=== PATIENT | male | born 1955 | race Caucasian/White ===

== ENCOUNTER 2018-06-15 10:51 | Emergency (ER) | payer SELFPAY ==
[~2018-06-15] VITALS: Ht 172.7 cm; Wt 90.7 kg
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
[2018-06-15] MEDS ORDERED: NS IV 1000 ML 1,000 ML IV SCH (11:15)
[2018-06-15] MEDS ORDERED: LABETALOL HCL 20 MG/4 ML VIAL IV ONE (11:15)
[2018-06-15 11:20] LABS: BASOPHILS % (AUTO) 0 % (0-10); EOSINOPHILS % (AUTO) 0 % (0-10); HEMATOCRIT 53 % (40-54); HEMOGLOBIN 18.2 G/DL (13.3-17.7); LYMPHOCYTES # (AUTO) 0.9 X 10^3 (1.0-4.0); LYMPHOCYTES % (AUTO) 9 % (12-44); MEAN CORPUSCULAR HEMOGLOBIN 33 PG (25-34); MEAN CORPUSCULAR HGB CONC 34 G/DL (32-36); MEAN CORPUSCULAR VOLUME 97 FL (80-99); MONOCYTES # (AUTO) 0.8 X 10^3 (0.0-1.0); MONOCYTES % (AUTO) 8 % (0-12); NEUTROPHILS # (AUTO) 8.3 X 10^3 (1.8-7.8); NEUTROPHILS % (AUTO) 82 % (42-75); PLATELET COUNT 168 10^3/uL (130-400); RED CELL DISTRIBUTION WIDTH 13.7 % (10.0-14.5); WHITE BLOOD COUNT 10.2 10^3/uL (4.3-11.0)
[2018-06-15 11:39] LABS: INR 1.1 (0.8-1.4); PROTHROMBIN TIME PATIENT 13.9 SEC (12.2-14.7)
[2018-06-15] MEDS ORDERED: niCARdipine IV 50 MG in NS (IVPB) 230 ML IV SCH (11:45)
[2018-06-15 11:47] LABS: ALANINE AMINOTRANSFERASE 44 U/L (0-55); ALBUMIN 4.1 GM/DL (3.2-4.5); ALKALINE PHOSPHATASE 66 U/L (40-136); AMMONIA 29 UMOL/L (11-32); BILIRUBIN,TOTAL 0.8 MG/DL (0.1-1.0); BUN/CREATININE RATIO 13; CALCIUM 9.1 MG/DL (8.5-10.1); CARBON DIOXIDE 24 MMOL/L (21-32); CHLORIDE 99 MMOL/L (98-107); CREATININE SERUM 0.72 MG/DL (0.60-1.30); GFR ESTIMATED > 60; GLUCOSE 142 MG/DL (70-105); POTASSIUM 3.9 MMOL/L (3.6-5.0); SALICYLATE < 5.0 MG/DL (5.0-20.0); SODIUM 136 MMOL/L (135-145); TOTAL PROTEIN 7.2 GM/DL (6.4-8.2)
[2018-06-15 11:48] LABS: ACETAMINOPHEN < 10 UG/ML (10-30)
--- NOTE | 2018-06-15 11:52 | Diagnostic Imaging Report ---
Clinical indication: Patient with altered mental status. Exam: Axial CT scan of brain performed without IV contrast. Comparison: None. FINDINGS: There is a 4.2 cm x 3.2 cm in AP and transverse dimension area of intraparenchymal hemorrhage within the right cerebellum with small amount of adjacent parenchymal edema. There is extension of hyperdense blood within the fourth ventricle, third ventricle, and into the bilateral lateral ventricles (right side more than the left) . There is mild crowding of the foramen magnum and slightly low-lying cerebellar tonsils. There is mild prominence of the lateral ventricles with minimal prominence of the temporal horns which may represent early mild hydrocephalus. There is no other areas of intraparenchymal hemorrhage. The remainder the brain parenchyma is unremarkable. Extra cranial soft tissue, skull, and orbits are unremarkable. There is moderate amount of mucosal thickening and fluid in the sphenoid sinus. IMPRESSION: 1: There is a 4.2 cm x 3.2 cm right cerebellar intraparenchymal hemorrhage with small amount of adjacent parenchymal edema. There is associated crowding of the foramen of Fay with mild tonsillar herniation. MRI of the brain with and without IV contrast, once patient is stable, may help better evaluate for possible etiology of this finding and exclude an underlying mass. 2: There is a moderate amount of intraventricular blood within the fourth ventricle, third ventricle, and lateral ventricles with concern for early mild hydrocephalus. This intraventricular blood is suspected to be extension from the right cerebellar intraparenchymal hemorrhage. Results of this report was discussed with James Bell APRN via the telephone on 06/15/2018 1140 hrs. Dictated by: Dictated on workstation # [id number]
--- NOTE | 2018-06-15 12:18 | Diagnostic Imaging Report ---
INDICATION: Altered mental status. EXAMINATION: Portable chest obtained at 11:33 a.m. and compared with 07/29/2009. FINDINGS: Heart is borderline in size. There is mild central vascular prominence. There are chronic-appearing increased interstitial markings with some degree of hyperinflation. There is no focal infiltrate, pneumothorax, or pleural fluid. There is an old right clavicle fracture which has healed. IMPRESSION: Borderline heart size with mild central vascular prominence and chronic-appearing increased interstitial markings. No acute pulmonary infiltrate or pleural fluid. Dictated by: Dictated on workstation # [id number]
[2018-06-15] MEDS ORDERED: LORazepam INJ 2 MG/ML (ATIVAN) VIAL IVP PRN (12:45)
[2018-06-15 12:49] VITALS: BP 158/109
--- OUTSIDE RECORDS SUMMARY | 2018-06-17 09:17 | XMS REPORT ---
Author Author NEHA ESTRADA [facility] Address [address] [place] [address] Care Team Providers Care Youth Leader Name Role Phone NEHA ESTRADA Unavailable PROBLEMS Unknown Problems ALLERGIES No Known Allergies ENCOUNTERS Encounter Location Date Diagnosis [facility] [address] [facility] [id number] [id number] Mar, Acute sinusitis J01.90 and Otitis media, left H66.92 IMMUNIZATIONS No Known Immunizations SOCIAL HISTORY Never Assessed REASON FOR VISIT cough/congestion- head cold started a least 10 days ago JStrasserRN PLAN OF CARE Activity Details Follow Up if not improving with PCP or reg follow up Reason: VITAL SIGNS Height 68.5 in 2018-04-02 Weight 205.0 lbs 2018-04-02 Temperature 98.8 degrees Fahrenheit 2018-04-02 Heart Rate 84 bpm 2018-04-02 Respiratory Rate 20 2018-04-02 BMI 30.71 kg/m2 2018-04-02 Blood pressure systolic 160 mmHg 2018-04-02 Blood pressure diastolic 108 mmHg 2018-04-02 MEDICATIONS Medication Instructions Dosage Frequency Start Date End Date Duration Status Amoxicillin 875 MG Orally every 12 hrs 1 tablet 12h Mar, 10 day (s) Active PredniSONE 20 MG Orally Once a day 2 tablet 24h Mar, 5 days Active RESULTS No Results PROCEDURES Procedure Date Ordered Result Body Site [facility] VISIT NEW PATIENT Apr 02, 2018 INSTRUCTIONS MEDICATIONS ADMINISTERED No Known Medications MEDICAL (GENERAL) HISTORY Type Description Date Surgical History No know Surgical history
== END 2018-06-15 12:49 | disposition short-term general hospital (02) ==
LOC: EDUNIT# 10:51 → ER 10:55
DX: I62.9 Nontraumatic intracranial hemorrhage, unspecified (principal); F17.200 Nicotine dependence, unspecified, uncomplicated; Z87.820 Personal history of traumatic brain injury
CPT/HCPCS: 36415; 70450; 71045; 80053; 80320; 80329; 82140; 85025; 85610; 85730; 93005

== ENCOUNTER 2018-12-05 12:30 | Outpatient (CLI) | payer OTHER ==
[~2018-12-05] VITALS: Ht 172.7 cm; Wt 81.6 kg
[2018-12-05] MEDS ORDERED: METO-370 PO (12:34)
[2018-12-05] MEDS ORDERED: HYDR-3923 PO (12:34)
== END 2018-12-05 13:23 | disposition home or self-care (01) ==
LOC: PREOP 12:30
PROVIDERS: ATTEND Surgery
DX: Z01.818 Encounter for other preprocedural examination (principal)

== ENCOUNTER 2018-12-10 10:39 | Day surgery (SDC) | payer OTHER ==
[~2018-12-10] VITALS: Ht 172.7 cm; Wt 81.6 kg
[2018-12-10] VITALS (10 sets, daily range): BP systolic 122–165; BP diastolic 63–105
[~2018-12-10 10:39] MED LIST: HYDR-3923 PO; LACTATED RINGERS 1,000 ML IV ONE; METO-370 PO
[2018-12-10] MEDS ORDERED: LACTATED RINGERS 1,000 ML IV STA (10:46)
[2018-12-10] MEDS ORDERED: PROPOFOL INJECTION 50 ML IV ONE (11:47)
--- NOTE | 2018-12-10 12:25 | Progress Note-Pre Operative ---
Pre-Operative Progress Note H&P Reviewed The H&P was reviewed, patient examined and no changes noted. Time Seen by Provider: 11:53 Date H&P Reviewed: Dec 10, 2018 Time H&P Reviewed: 11:54 Pre-Operative Diagnosis: Hemoccult + BAR COWAN DO Dec 10, 2018 12:25
--- NOTE | 2018-12-10 12:50 | NUR ---
INCREASED O2 TO 5L/NC, PT C/O ABDOMINAL PAIN- INSTRUCTED PT TO TAKE DEEP BREATHS & PASSING THE AIR THAT WAS PUT IN DURING THE PROCEDURE WILL HELP WITH ABDOMEN DISCOMFORT.
--- NOTE | 2018-12-10 12:54 | Anesthesia-General Post-Op ---
MAC Patient Condition Mental Status/LOC: Same as Preop Cardiovascular: Satisfactory Nausea/Vomiting: Absent Respiratory: Satisfactory Pain: Controlled Complications: Absent Post Op Complications Complications None Follow Up Care/Instructions Patient Instructions None needed. Anesthesiology Discharge Order Discharge Order Patient is doing well, no complaints, stable vital signs, no apparent adverse anesthesia problems. No complications reported per nursing. ARMANI MCCLELLAN CRNA Dec 10, 2018 12:54
--- NOTE | 2018-12-10 13:13 | Progress Note-Post Operative ---
Post-Operative Progess Note Surgeon (s)/Security Intern (s) Surgeon BAR COWAN DO Security Intern: none Pre-Operative Diagnosis Hemoccult + Post-Operative Diagnosis Colon polyps diverticula internal hemorrhoids External karen-rectal masses Procedure & Operative Findings Date of Procedure 12/10/18 Procedure Performed/Findings Colon with snare Anesthesia Type IV sedation by RENT AND MISCELLANEOUS REMITTANCE CLERK Estimated Blood Loss Estimated blood loss (mL): scant Specimens/Packing Specimens Removed transverse colon mass\ Descending colon mass BAR COWAN DO Dec 10, 2018 13:13
--- NOTE | 2018-12-10 13:14 | Endoscopy Discharge Instruct ---
Endo Procedure/Findings Findings 1.: Polyp 2.: Diverticulosis 3.: Internal Hemorrhoids Discharge Instructions - Activity: You might feel a little sleepy until tomorrow. This is due to the medicine you received to relax you. Until tomorrow, you should: NOT drive a car, operate machinery or power tools. NOT drink any alcoholic beverages. NOT make any important decisions or sign importortant papers. Do not return to work until tomorrow, unless otherwise instructed. Resume previous activities tomorrow. Diet: Start by taking liquids. If you tolerate liquids, advance to solid food. make an appointment for one week Instructions: 1.: Colonoscopy in 1 year Notify Physician - If you experience excessive bleeding, unusual abdominal pain, fever, or chest pain, contact your doctor immediately. Follow-Up: - I have received and understand the above instructions and will call my doctor if I have any further questions. Patient Signature Date Nurse Signature Other (Relationship) BAR COWAN DO Dec 10, 2018 13:14
--- NOTE | 2018-12-10 13:15 | NUR ---
ANESTHESIA ([facility] [employer]ERS) NOTIFIED OF PT C/O CHEST PAIN, 12-LEAD EKG OBTAINED & BREATHING TX ORDERED.
[2018-12-10] MEDS ORDERED: RT-ALBUTEROL/IPRATROPIUM 3 ML (DUONEB) VIAL INH ONE (13:30)
[2018-12-10] MEDS ORDERED: RT-ALBUTEROL SULF 2.5 MG/3 ML PRE-MIX VIAL ONE (13:31)
--- NOTE | 2018-12-10 13:45 | NUR ---
PT HAS NOW HAD BREATHING TX COMPLETED, PT VERBALIZED PAIN HAS GONE AWAY- CURRENTLY RATING PAIN 0/10, WILL CONTINUE TO MONITOR.
--- NOTE | 2018-12-10 14:00 | NUR ---
PT DENIES ANY PAIN AT THIS TIME, PT ABLE TO HOLD O2 SAT IN MID 90'S ON ROOM AIR, NO DISTRESS NOTED.
--- NOTE | 2018-12-10 18:26 | OPERATIVE REPORT ---
DATE OF SERVICE: 12/10/2018 PREOPERATIVE DIAGNOSIS: Hemoccult positive stool. POSTOPERATIVE DIAGNOSES: 1. Colon polyps. 2. Diverticula. 3. Internal hemorrhoids. 4. External perirectal masses. PROCEDURE PERFORMED: Colonoscopy with snare polypectomy. SURGEON: Rob Blount DO. EMPLOYMENT RECRUITER: None. ANESTHESIA: IV sedation by LEGAL SERVICES PROFESSIONAL. SPECIMEN: One polyp from the transverse colon and one polyp from the descending colon. BLOOD LOSS: Scant. FLUIDS: Per Anesthesia. POSTOPERATIVE CONDITION: Stable. INDICATION FOR PROCEDURE: The patient is a 63-year-old male who had a Hemoccult positive stool test and needed a workup. FINDINGS: The patient had two very large perirectal external masses. He also noted diverticula and then 2 very large polyps, one of them taken in multiple pieces to remove it. PROCEDURE NOTE: After informed consent was obtained, the patient was brought to the endoscopy suite and placed in the left lateral decubitus position. He was administered IV sedation by the LEGAL SERVICES PROFESSIONAL who then monitored his vitals the entire time, heart rate, blood pressure and pulse ox and the scope was inserted. On the way in, noted a polyp in the descending colon, took a picture of this and then a snare polypectomy hot and suctioned the polyp up to the scope and then had to pull the scope all the way out to remove the polyp, then inserted the scope again and on the way, noted diverticula, took a picture of this, able to push all the way to 150 cm, able to get to the cecum, took a picture of appendiceal orifice and then able to actually get into the terminal ileum, took a picture of this and then slowly withdrew the scope insufflating to look circumferentially at the rodriguez, looking the cecum, up the ascending colon to the hepatic flexure and then down the transverse colon and in the transverse colon just before the splenic flexure, saw another large polyp, did a snare polypectomy, had to do this in multiple bites to remove all of the polyp, able to suction most of them up, but then the large piece was unable to suction up, I tried to suction this up to the scope, pulled this all the way out of the colon and removed this and then placed the scope back into the colon going all the way to our biopsy sites and then slowly withdrawing the scope down the splenic flexure, into the descending colon, saw the previous biopsy site, continued down the descending colon into the sigmoid and then down into the rectum, retroflexed the rectal vault, saw some minimal internal hemorrhoids. Pulled the scope out, took a picture of the external perirectal masses. The patient tolerated the procedure. He was recovered in endoscopy suite. Job ID: [id number] DocumentID: [id number] Dictated Date: 12/10/2018 15:40:02 Warehouse Order Filler Date: 12/10/2018 18:24:32 Dictated By: ROB BLOUNT DO
== END 2018-12-10 14:20 | disposition home or self-care (01) ==
LOC: ENDO 10:39
PROVIDERS: ATTEND Surgery
DX: D12.4 Benign neoplasm of descending colon (principal); D12.3 Benign neoplasm of transverse colon; K63.89 Other specified diseases of intestine; K57.30 Diverticulosis of large intestine without perforation or abscess without bleeding; K64.8 Other hemorrhoids; K21.9 Gastro-esophageal reflux disease without esophagitis; I10 Essential (primary) hypertension; J44.9 Chronic obstructive pulmonary disease, unspecified; I63.9 Cerebral infarction, unspecified; Z80.9 Family history of malignant neoplasm, unspecified; Z84.1 Family history of disorders of kidney and ureter
CPT/HCPCS: 94640

== ENCOUNTER → 2018-12-25 | Outpatient (CLI) | payer OTHER, MEDICARE ==
[~2018-12-25] MED LIST changes: +HOLD METFORMIN - RECEIVED CONTRAST 20 ML VIAL IV SCH; +IOHEXOL 350 MG/ML 100 ML (OMNIPAQUE 350) VIAL IV ONE; -LACTATED RINGERS 1,000 ML IV ONE; +NS 100 ML (IVPB) BAG IV ONE
[2018-12-25 11:44] LABS: BUN/CREATININE RATIO 19; CREATINE KINASE 31 U/L (30-200); CREATININE SERUM 0.62 MG/DL (0.60-1.30); GFR ESTIMATED > 60
--- NOTE | 2018-12-25 13:38 | Diagnostic Imaging Report ---
PROCEDURE: CT angiography of the head with and without contrast. TECHNIQUE: Noncontrast CT of the head was obtained. Subsequently, after intravenous administration of contrast, thin section axial CT angiography of the head was performed. Source data was reformatted into multiple MIP reformats. Delayed postcontrast acquisition of the head was also acquired. Auto Exposure Controls were utilized during the CT exam to meet ALARA standards for radiation dose reduction. INDICATION: Prior history of intracranial hemorrhage with difficulty walking and talking. COMPARISON: Correlation is made with noncontrast CT brain from 06/15/2018. No prior MRI study is available for comparison. FINDINGS: Postsurgical changes at the skull base are noted. There has been performance of an occipital craniectomy. High density at the right aspect of the skull base is noted which could be post-therapeutic from prior embolization. There is some encephalomalacia in the right cerebellar hemisphere from prior insult. Previously noted right cerebellar and intraventricular acute hemorrhage noted on CT from June has resolved. There has been decompression of the ventricular system since prior study consistent with improving hydrocephalus. No mass effect or midline shift is detected. No new region of hemorrhage is seen. No enhancing lesion on the delayed postcontrast images is identified. CT angiographic portion of the exam demonstrates calcified plaque in the carotid siphons bilaterally. The anterior, middle and posterior cerebral arteries are widely patent and without evidence of filling defect. Basilar artery is patent. The visualized distal right vertebral artery is very small with the left vertebral artery dominant. No aneurysm is identified. No intracranial stenosis or vascular malformation is seen. IMPRESSION: Postsurgical and post therapeutic changes at the skull base. Previously noted intraparenchymal and intraventricular hemorrhage has resolved. Hydrocephalus has resolved. No acute intracranial hemorrhage is seen. CT angiographic portion of the exam is unremarkable. Dictated by: Dictated on workstation # [id number]
== END ==
LOC: RAD 11:06
PROVIDERS: ATTEND Internal Medicine Addiction Medicine
DX: I77.0 Arteriovenous fistula, acquired (principal); I62.9 Nontraumatic intracranial hemorrhage, unspecified; Z98.890 Other specified postprocedural states
CPT/HCPCS: 36415; 70496; 82550; 82565; 84520

== ENCOUNTER → 2018-12-25 | Outpatient (CLI) | payer OTHER, MEDICARE ==
[~2018-12-25] MED LIST changes: -HOLD METFORMIN - RECEIVED CONTRAST 20 ML VIAL IV SCH; -IOHEXOL 350 MG/ML 100 ML (OMNIPAQUE 350) VIAL IV ONE; -NS 100 ML (IVPB) BAG IV ONE
== END ==
LOC: LAB 11:12
PROVIDERS: ATTEND Psychiatry & Neurology Neurology
DX: I62.9 Nontraumatic intracranial hemorrhage, unspecified (principal)

== ENCOUNTER 2019-01-21 09:04 | Inpatient (IN) | payer MEDICARE, OTHER ==
[~2019-01-21] VITALS: Ht 172.7 cm; Wt 88.9 kg
[2019-01-21 09:00] VITALS: BP 129/83
--- NOTE | 2019-01-21 09:00 | NUR ---
Admitted to room 224-1, with an admitting diagnosis of debility, on 01/21/19 from home via , accompanied by sister].NIGEL IQBAL introduced to surroundings, call light, bed controls, phone, TV, temperature control, lights, meal times, smoking policy, visitor policy, side rail policy, bathrooms and showers. Patient Rights given to patient in the handbook.NIGEL IQBAL verbalizes understanding that [facility] is not responsible for the loss or damage to any personal effects or valuables that are kept in the patients posession during their hospitalization. The following Patient Care Plans were discussed with the : Discharge Planning, ,, and . NIGEL IQBAL verbalizes understanding of Interdisciplinary Patient Education. Patient and/or family were informed about the Rapid Response Team and its purpose. Patient received Patient Rights Booklet, which includes Privacy Act Statement and Data Collection Information Summary.
--- NOTE | 2019-01-21 10:20 | PM&R H&P / Post Admit Assess ---
History of Present Illness HPI/Chief Complaint CC: Debility following intracerebral hemorrhage of cerebellum HPI: This is a 63yoWM clinic patient of [facility] Dr Patiño who presents to IRF at the request of his neurologist following a lengthy 7 month course following a HTN source of cerebellar hemorrhage which required surgical intervention after transferred from [facility] then to [facility] then required ICU monitoring and PEG and trach then transferred to [facility] on 07/23/18 and had a lengthy stay and then was admitted to [facility] for slow recovery and ultimately DC home with sister and now ready to participate in therapies in order to regain lost functioning. Patient has a h/o ETOH abuse and tobacco use b oth of which have ceased now since illness. Source: patient, family, RN/MD, old records Exam Limitations: no limitations Date Seen 01/21/19 Time Seen by a Provider: 10:20 Attending Physician Carline Lopez Michael G MD Referring Physician Date of Admission Jan 21, 2019 at 09:06 Home Medications & Allergies Home Medications Reviewed patient Home Medication Reconciliation performed by pharmacy medication reconciliations wiring technician and/or nursing. Patients Allergies have been reviewed. Allergies Allergies Coded Allergies No Known Drug Allergies (Verified12/10/18) Past Vfizvjb-Ritxqm-Ewllgz Hx Past Med/Social Hx: Reviewed Nursing Past Med/Soc Hx, Reviewed and Corrections made Patient Social History Marrital Status: single Employed/Student: retired Alcohol Use: Past History Alcohol Beverage of Choice: Beer Smoking Status: Former Smoker Former Smoker, Quit: Jun 15, 2018 2nd Hand Smoke Exposure: No Recent Hopitalizations: Yes (06/15/18-10/09/18 STROKE) Seasonal Allergies Seasonal Allergies: No Past Medical History Surgeries: Brain Shunt Respiratory: COPD Cardiac: Hypertension Neurological: Stroke Sexually Transmitted Disease: No HIV/AIDS: No Gastrointestinal: Gastroesophageal Reflux, Chronic Diarrhea Loss of Vision: Denies Hearing Impairment: Denies History of Blood Disorders: No Adverse Reaction to Blood Paul: No (N/A) Review of Systems Constitutional: see HPI, malaise, weakness EENTM: no symptoms reported Respiratory: no symptoms reported Cardiovascular: no symptoms reported Gastrointestinal: no symptoms reported Genitourinary: no symptoms reported Musculoskeletal: back pain, joint pain Skin: no symptoms reported Psychiatric/Neurological: Anxiety, Depressed, Emotional Problems, Numbness, Weakness All Other Systems Reviewed Negative Unless Noted: Yes Physical Exam Exam Vital Signs Vital Signs Date Time Temp Pulse Resp B/P (MAP) Pulse Ox O2 Delivery O2 Flow Rate FiO2 01/21/19 17:37 36.6 80 18 145/86 (105) 97 Room Air 0.00 0.00 Capillary Refill : General Appearance: No Apparent Distress, WD/WN, Chronically ill HEENT: PERRL/EOMI, Normal ENT Inspection, Pharynx Normal, Moist Mucous Membranes Neck: Full Range of Motion, Normal Inspection, Non Tender, Supple Respiratory: Chest Non Tender, Lungs Clear, Normal Breath Sounds, No Accessory Muscle Use, No Respiratory Distress Cardiovascular: Regular Rate, Rhythm, No Edema, No Gallop, No JVD, No Murmur Gastrointestinal: Normal Bowel Sounds, No Organomegaly, No Pulsatile Mass, Non Tender, Soft Back: Normal Inspection, No CVA Tenderness, No Vertebral Tenderness Extremity: Normal Capillary Refill, Normal Inspection, Normal Range of Motion, Non Tender, No Calf Tenderness, No Pedal Edema Neurologic/Psychiatric: Alert, Oriented x3, No Motor/Sensory Deficits, Normal Mood/Affect, Motor Weakness (right sided upper and lower) Skin: Normal Color, Warm/Dry Lymphatic: No Adenopathy Results Results/Procedures Labs Patient resulted labs reviewed. Assessment/Plan Assessment and Plan Assess & Plan/Chief Complaint Assessment: ICH cerebellar 07/03 Right sided weakness Former smoker ETOHism hx Plan: Monitor BP Home meds PT/OT Monitor bowel function (1) Intracranial hemorrhage Status: Chronic (2) Hypertension Status: Chronic Qualifiers: Hypertension type: essential hypertension Qualified Codes: I10 - Essential (primary) hypertension (3) History of alcohol abuse Status: Chronic (4) Former smoker Status: Chronic (5) GERD (gastroesophageal reflux disease) Status: Chronic Qualifiers: Esophagitis presence: without esophagitis Qualified Codes: K21.9 - Gastro- esophageal reflux disease without esophagitis Post Admission Physician Asses Date seen by provider: Jan 21, 2019 Time seen by provider: 10:20 Admisison Dx: (1) Intracranial hemorrhage Status: Chronic The preadmission screen agrees with the post admission assessment that the patient is a good candidate for inpatient rehabilitation. The patient will have a comprehensive program of inpatient rehabilitation with a goal of maximizing level of functional independence prior to discharge home with sister. The patient will have PT/OT ninety minutes per day, each discipline, five days a week for gait, strengthening, conditioning, balance, ADLs, any patient/family/caregiver training as necessary. Speech therapy to do cognitive assessment and treat as indicated. Rehabilitation nursing to assist with bowel, bladder, skin, wound care, medication administration, pain management. Language Pathologist to assist with discharge planning, community reentry. SCD's for DVT prophylaxis. He appears to be well motivated to participate in three hours of therapy a day. He should be able to tolerate three hours of therapy a day from a medical standpoint. He should benefit from the three hours of therapy a day. He has a reasonable discharge plan, reasonable discharge rehabilitation goals and a supportive family. He has various comorbidities that need to be closely monitored with medications and treatments adjusted on a daily basis as needed. These include:s see list Barriers to discharge for this patient who had been independent prior to this are for him to be modified independent to supervision for ADLs and mobility skills prior to discharge home with sister, so as to lessen the burden of the caregivers. Risks for this patient include: 1. Fall 2. Fracture 3. DVT 4. Pulmonary embolism 5. Wound infection 6. Skin breakdown 7. Contractures 8. Poorly controlled pain 9. Urinary retention 10. UTI 11. Respiratory infection 12. Aspiration Estimated Length of Stay: 7 days Prognosis: Rehab prognosis appears good for goal of discharge home with sister modified independent to supervision for ADLs and mobility skills. CARLINE LOPEZ DO Jan 21, 2019 10:20
[2019-01-21] MEDS ORDERED: IBUP-30 PO (11:01)
[2019-01-21] MEDS ORDERED: AMLO10TA7 PO (11:01)
--- NOTE | 2019-01-21 11:04 | NUR ---
PATIENT HAD HIS BOTTLES IN THE ROOM, HE STATES HE ONLY TAKES THOSE THREE PRESCRIPTIONS AND OTC IBU 2 TABS NEEDED. BOTTLES HE HAD: [facility]: 12-28-18 METOPROLOL ER 50MG 1/2 DAILY #45 09-28-18 HYDRALAZINE HCL 25MG Q6H #360 [facility]: 12-14-18 AMLODIPINE 10MG 1/2 DAILY #90
--- NOTE | 2019-01-21 11:49 | Physical Therapy Evaluation ---
PT Evaluation-General Medical Diagnosis Admission Date Jan 21, 2019 at 09:06 Medical Diagnosis: Cerebellar hemorrhage Onset Date: Jun 17, 2018 Therapy Diagnosis Therapy Diagnosis: impaired mobility, strength, balance, endurance Height/Weight Height (Feet): 5 Height (Inches): 8.00 Weight (Pounds): 180 Weight (Ounces): 0.0 Referral Physician: Carline Lopez DO Reason for Referral: Evaluation/Treatment Medical History Additional Medical History Past Medical History Cardiac: Hypertension Neurological: Stroke Sexually Transmitted Disease: No HIV/AIDS: No Gastrointestinal: Gastroesophageal Reflux, Chronic Diarrhea Loss of Vision: Denies Hearing Impairment: Denies History of Blood Disorders: No Adverse Reaction to Blood Paul: No (N/A) Reviewed History: Yes Social History Home: Single Level Current Living Status: sister lives with him Entry Into Home: Ramp Prior Prior Level of Function Therapy Quality Codes: 6 Independent with activity with or without an assistive device 5 Patient requires set up or clean up by helper. Patient completes activity by themselves 4 Supervision or touching assist (CGA). [place] provide cues , steadying assist 3 The helper provides less than half the effort to complete the activity 2 The helper provides more than half the effort to complete the activity 1 Dependent. The helper does all the effort to complete an activity 7 Patient refused to complete or attempt activity 9 The patient did not perform the activity before the current illness or injury 88 Not attempted due to Medical conditions or safety concerns Bed Mobility: 7 Transfers (B,C,W/C): 7 Gait: 7 Stairs: 7 Indoor Mobility (Ambulation): Independent Stairs: Independent PT Evaluation-Current Subjective Patient in WC pre tx, agrees to PT, has no complaints of pain. Pt/Family Goals "to work on my coordination" Objective Patient Orientation: Person, Confused, Place, Situation ROM/Strength ROM Lower Extremities WNL Strength Lower Extremities LLE 5/5 gross, RLE 4+/5 gross Neuromuscular (Tone, Coordination, Reflexes) intact peripheral vision bilaterally, trouble tracking on both sides Sensory Vision: Hearing: Functional Sensation Right Lower Extremit: Intact Sensation Left Lower Extremity: Intact Sensation Lower Extremities patient has intact light touch sensation in both lower extremities Transfers Roll Left to Right (QC): 6 Sit to Lying (QC): 6 Lying to Sitting/Side of Bed(Q: 6 Sit to Stand (QC): 4 Chair/Yjo-wf-Bxlkz Xfer(QC): 4 Car Transfer (QC): 4 Patient performs bed mobility with mod I, supine <-> sit with mod I, sit <-> stand with CGA, transfers with CGA, car transfer CGA. Patient needs cues for hand placement and positioning and safety. Will often pull on walker to stand and not reach back when sitting. Gait Does the Patient Walk?: Yes Mode of Locomotion: Walk Anticipated Mode of Locomotion: Walk Walk 10 feet (QC): 4 Walk 50 ft with 2 Turns(QC): 4 Walk 150 ft (QC): 4 Walking 10ft/uneven surface-QC: 4 Distance: 150'x2 Gait Persons Needed: 1 Gait Assistive Device: FWW Comments/Gait Description Patient can ambulate 150' with a rolling walker with CGA (including 50' with at least 2 turns of 90 degrees and 10' over an uneven surface). Patient ambulates slowly, uncoordinated steps especially with right side. Wheelchair Training Does the Pt Use a Wheelchair?: Yes Distance: 150' Wheel 50 ft with 2 turns (QC): 6 Wheel 150 ft (QC): 6 Type of Wheelchair: Manual Patient can propel a manual wheelchair 150' with mod I. Stairs #of Steps: 4 1 Step (curb) (QC): 4 4 Steps (QC): 4 Patient can go up and down 4 steps using 2 handrails with CGA. Patient needs cues for safety, is uncoordinated and needs directions for foot placement. Balance Sitting Static: Normal Sitting Dynamic: Normal Standing Static: Fair Standing Dynamic: Poor Picking up an Object (QC): 4 (CGA) Assessment/Needs Patient has impaired mobility, strength, endurance, balance. Patient is slightly impulsive but will follow directions. Patient in WC post tx, wants to wheel around rehab. Patient instructed to call staff if he needs to get out of the wheelchair and he agrees. Nurse notified. Rehab Potential: Fair PT Short Term Goals Short Term Goals Time Frame: Jan 28, 2019 Gait Distance Comment: 200' Gait Assistive Device: FWW (SBA) Additional Short Term Goals transfers, SBA PT Fdc Goals Fdc Goals PT Change Management Facilitator Goals Time Frame: Feb 11, 2019 Sit to Lying (QC): 6 Lying-Sitting on Side/Bed(QC): 6 Sit to Stand (QC): 6 Roll Left to Right (QC): 6 Chair/Ses-ci-Ysdcx Xfer(QC): 6 Car Transfer (QC): 6 Distance: 300' Walk 10 feet (QC): 6 Walk 10ft-Uneven Surface(QC): 6 Walk 50ft with 2 Turns (QC): 6 Walk 150 ft (QC): 6 Gait Assistive Device: FWW # of Steps: 12 (SBA) 1 Step (curb) (QC): 4 4 Steps (QC): 4 12 Steps (QC): 4 Picking up an Object (QC): 4 (SBA) PT Plan Problem List Problem List: Activity Tolerance, Functional Strength, Safety, Balance, Gait, Transfer Treatment/Plan Treatment Plan: Continue Plan of Care Treatment Plan: Education, Functional Activity Omar, Functional Strength, Group Therapy, Gait, Safety, Therapeutic Exercise, Transfers Treatment Duration: Feb 11, 2019 Frequency: At least 5 of 7 days/Wk (IRF) Estimated Hrs Per Day: 1.5 hours per day Patient and/or Family Agrees t: Yes Safety Risks/Education Patient Education: Gait Training, Transfer Techniques, Steps, Correct Positioning, W/C Management, Safety Issues Teaching Recipient: Patient Teaching Methods: Demonstration, Discussion Response to Teaching: Reinforcement Needed Discharge Recommendations Plan Patient will perform bed mobility and transfer training, balance and endurance training, functional strengthening, stair training, gait training, and education, to improve functional mobility and independence at home. Therapy Discharge Recommendati: Other, See Comments (home with family) Time/GCodes Time In: 1100 Time Out: 1145 Total Billed Treatment Time: 45 Total Billed Treatment 1 visit EVM 30' GT 15' TERESE WALSH PT Jan 21, 2019 11:49
[2019-01-21] MEDS ORDERED: NON-FORMULARY MEDICATION 1 EA EA (Hydralazine HCl 25 MG) PO SCH (14:00)
[2019-01-21] MEDS ORDERED: NON-FORMULARY MEDICATION 1 EA EA (Ibuprofen (Advil) 400 MG) PO PRN (14:00)
[2019-01-21] MEDS ORDERED: IBUPROFEN TABLET 200 MG TAB PO PRN (14:15)
--- NOTE | 2019-01-21 14:35 | Occupational Ther Daily Note ---
OT Current Status-Daily Note Subjective Pt alert, sitting in w/c. Pt agrees to therapy. No c/o pain at this time. Pt wants to discuss if he will be able to walk by himself, no AE. PT talks pt through issues of walking by self and how beneficial AE is for safety and mobility. Mental Status/Objective Patient Orientation: Person, Place, Time, Situation ADL-Treatment Therapy Code Descriptions/Definitions Functional [place] Measure: 0=Not Assessed/NA 4=Minimal Assistance 1=Total Assistance 5=Supervision or Setup 2=Maximal Assistance 6=Modified [place] 3=Moderate Assistance 7=Complete IndependenceSCALE: Activities may be completed with or without assistive devices. 2-Hrtlwodzmv-xkvvpes completes the activity by him/herself with no assistance from a helper. 5-Set-up or Clean-up Assistance-helper sets up or cleans up; patient completes activity. [place] assists only prior to or following the activity. 4-Supervision or Touching Assistance-helper provides verbal cues and/or touching/steadying and/or contact guard assistance as patient completes activity. Assistance may be provided throughout the activity or intermittently. 3-Partial/Moderate Assistance-helper does LESS THAN HALF the effort. [place] lifts, holds or supports trunk or limbs, but provides less than half the effort. 2-Substantial/Maximal Assistance-helper does MORE THAN HALF the effort. [place] lifts or holds trunk or limbs and provides more than half the effort. 8-Lhyprheli-agarcq does ALL the effort. Patient does none of the effort to complete the activity. Or, the assistance of 2 or more helpers is required for the patient to complete the activity. If activity was not attempted, code reason: 7-Patient Refused. 9-Not Applicable-not attempted and the patient did not perform the activity before the current illness, exacerbation or injury. 10-Not Attempted due to Environmental Limitations-(lack of equipment, weather restraints, etc.). 88-Not Attempted due to Medical Conditions or Safety Concerns. Other Treatment Co-treat with PT for skilled instruction, decreased mobility and decreased dynamic standing balance during functional tasks. PT working on standing during functional tasks to decreased LOB in variety of situations, ambulation, w/c mobility and LE strengthening. OT working on functional tasks while standing, increasing dexterity/coordination and strength of L/R UEs and decrease LOB during functional tasks. Pt able to demonstrate ability to thread LE's through loop of theraband then stand to hike theraband over hips. Pt required verbal cues for w/c safety, lock brakes and pushing/reaching in sit to stand. Pt demonstrated slight LOB during standing functional tasks requiring CGA to min A for correction. Pt able to maneuver w/c throughout ARU. When ambulating pt postures due to weakness of R side and visual perceptual issues. Noted that pt has decreased strength and dexterity/coordination with R hand during functional tasks. After therapy, pt sitting in w/c with call light/phone in reach. Therapist reiterated to pt to call for assistance with transfers or if wanting to stand. All needs met in room. OT Short Term Goals Short Term Goals 1=Demonstrate adherence to instructed precautions during ADL tasks. 2=Patient will verbalize/demonstrate understanding of assistive devices/modifications for ADL. 3=Patient will improve strength/tolerance for activity to enable patient to perform ADL's. OT Global Implementation Manager Goals Mcfp Goals 1=Demonstrate adherence to instructed precautions during ADL tasks. 2=Patient will verbalize/demonstrate understanding of assistive devices/modifications for ADL. 3=Patient will improve strength/tolerance for activity to enable patient to perform ADL's. OT Education/Plan Problem List/Assessment Assessment: Decreased Activ Tolerance, Decreased Safety Aware, Decreased UE Strength, Impaired Coordination, Impaired Funct Balance, Impaired Self-Care Skills, Restricted Funct UE ROM, Visual-Perceptual Deficit Discharge Recommendations Plan/Recommendations: Continue POC Treatment Plan/Plan of Care Patient would benefit from OT for education, treatment and training to promote independence in ADL's, mobility, safety and/or upper extremity function for ADL's. Treatment Duration: Feb 11, 2019 Frequency: At least 5 of 7 days/Wk (IRF) Estimated Hrs Per Day: 1.5 hours per day Agreement: Yes Rehab Potential: Fair Time/GCodes Start Time: 13:30 Stop Time: 14:25 Total Time Billed (hr/min): 55 Billed Treatment Time 1 visit-FA 3 (38 min) EX 1 (17 min) cotreat with PT 55 min LUPE COSBY Jan 21, 2019 14:35
--- NOTE | 2019-01-21 14:40 | Physical Therapy Daily Note ---
PT Daily Note-Current Subjective Agrees to PT. Talks that he hopes/wants to walk without an AD. However, in discussion also acknowledges that it may not be realistic to expect to walk without an AD. Transfers SCALE: Activities may be completed with or without assistive devices. 0-Ludgdbdjee-koefags completes the activity by him/herself with no assistance from a helper. 5-Set-up or Clean-up Assistance-helper sets up or cleans up; patient completes activity. [place] assists only prior to or following the activity. 4-Supervision or Touching Assistance-helper provides verbal cues and/or touching/steadying and/or contact guard assistance as patient completes activity. Assistance may be provided throughout the activity or intermittently. 3-Partial/Moderate Assistance-helper does LESS THAN HALF the effort. [place] lifts, holds or supports trunk or limbs, but provides less than half the effort. 2-Substantial/Maximal Assistance-helper does MORE THAN HALF the effort. [place] lifts or holds trunk or limbs and provides more than half the effort. 9-Nvbpcvpcv-ttegyz does ALL the effort. Patient does none of the effort to complete the activity. Or, the assistance of 2 or more helpers is required for the patient to complete the activity. If activity was not attempted, code reason: 7-Patient Refused. 9-Not Applicable-not attempted and the patient did not perform the activity before the current illness, exacerbation or injury. 10-Not Attempted due to Environmental Limitations-(lack of equipment, weather restraints, etc.). 88-Not Attempted due to Medical Conditions or Safety Concerns. Treatments Co treat with OT due to the need for 2 skilled clinicians to complete the tasks. Focused on functional standing static and dynamic balance as OT addressed UE coordination, use and placement. In standing, PT addressed G[place], foot position, awareness in space for safety and provided CGA for all as OT addressed function of the UE. Performed standing balance and UE work together to enhance the balance challenge, simulate ADL"s and promote multiple activities at once for heightened safety with mobility in his home. Also worked on functional gait with with FWW witH PT addresses step through gait, posture and safety as OT provided visual feedback and cues. Pt requires min-CGA with gait for safety. Pt in room in post treatment, instructed him to always use the call light to move from surface to surface. Assessment Current Status: Good Progress Pt is motivated. He did will with the challenging balance tasks and follows cues. He is motivated. He does tend to talk alot and needs cues to stay on task. PT Short Term Goals Short Term Goals Time Frame: Jan 28, 2019 Gait Distance Comment: 200' Gait Assistive Device: FWW (SBA) Wheelchair Distance: 150' PT Half-Way Goals Green Coffee Blender Goals PT Green Coffee Blender Goals Time Frame: Feb 11, 2019 Sit to Lying (QC): 6 Lying-Sitting on Side/Bed(QC): 6 Sit to Stand (QC): 6 Roll Left to Right (QC): 6 Chair/Oan-va-Fjcyp Xfer(QC): 6 Car Transfer (QC): 6 Distance: 300' Walk 10 feet (QC): 6 Walk 10ft-Uneven Surface(QC): 6 Walk 50ft with 2 Turns (QC): 6 Walk 150 ft (QC): 6 Gait Assistive Device: FWW # of Steps: 12 (SBA) 1 Step (curb) (QC): 4 4 Steps (QC): 4 12 Steps (QC): 4 Picking up an Object (QC): 4 (SBA) PT Plan Problem List Problem List: Activity Tolerance, Functional Strength, Safety, Balance, Gait, Transfer, Bed Mobility Treatment/Plan Treatment Plan: Continue Plan of Care Treatment Plan: Education, Functional Activity Omar, Functional Strength, Group Therapy, Gait, Safety, Therapeutic Exercise, Transfers Treatment Duration: Feb 11, 2019 Frequency: At least 5 of 7 days/Wk (IRF) Estimated Hrs Per Day: 1.5 hours per day Patient and/or Family Agrees t: Yes Safety Risks/Education Patient Education: Transfer Techniques, Reviewed Precautions, Safety Issues Teaching Recipient: Patient Teaching Methods: Demonstration, Discussion Response to Teaching: Return Demonstration, Reinforcement Needed Discharge Recommendations Therapy Discharge Recommendati: Post Acute PT Time/GCodes Time In: 1330 Time Out: 1425 Total Billed Treatment Time: 55 Total Billed Treatment visit NM 30 FA 25 LUPE VALENTE PT Jan 21, 2019 14:40
--- NOTE | 2019-01-21 14:47 | Occupational Therapy Eval ---
OT Evaluation-General/PLF Medical Diagnosis Admission Date Jan 21, 2019 at 09:06 Medical Diagnosis: Cerebellar hemorrhage Onset Date: Jun 17, 2018 Therapy Diagnosis Therapy Diagnosis: Decreased ADL skills Height/Weight Height (Feet): 5 Height (Inches): 8.00 Weight (Pounds): 180 Weight (Ounces): 0.0 Weight Bear Status Weight Bearing Restriction: Weight Bearing/Tolerated Referral Physician: Carline Lopez DO Referral Reason: Activity Tolerance, Self Care, Evaluation/Treatment, Strengthening/ROM Medical History Additional Medical History ETOH abuse Current History Pt. had cerebellar hemorrhage in June 2018. Underwent craniotomy with right frontal lobe drain secondary to hydropcephalus. Was in ICU for 5 weeks in [place]. Transferred to [facility] in [place] for 1 month. Then transferred to [facility] and rehab for 1 month. Discharged home after that. Reviewed History: Yes Social History Home: Single Level Current Living Status: sister lives with him Entry Into Home: Ramp ADL-Prior Level of Function SCALE: Activities may be completed with or without assistive devices. 6-Mcsdxlkecs-yeuqisg completes the activity by him/herself with no assistance from a helper. 5-Set-up or Clean-up Assistance-helper sets up or cleans up; patient completes activity. [place] assists only prior to or following the activity. 4-Supervision or Touching Assistance-helper provides verbal cues and/or touching/steadying and/or contact guard assistance as patient completes activity. Assistance may be provided throughout the activity or intermittently. 3-Partial/Moderate Assistance-helper does LESS THAN HALF the effort. [place] lifts, holds or supports trunk or limbs, but provides less than half the effort. 2-Substantial/Maximal Assistance-helper does MORE THAN HALF the effort. [place] lifts or holds trunk or limbs and provides more than half the effort. 7-Eiloohywd-qkmpcj does ALL the effort. Patient does none of the effort to complete the activity. Or, the assistance of 2 or more helpers is required for the patient to complete the activity. If activity was not attempted, code reason: 7-Patient Refused. 9-Not Applicable-not attempted and the patient did not perform the activity before the current illness, exacerbation or injury. 10-Not Attempted due to Environmental Limitations-(lack of equipment, weather restraints, etc.). 88-Not Attempted due to Medical Conditions or Safety Concerns. ADL PLOF Comments Since pt. discharged home, his sister lives with him occupational health coordinator and cares for him occupational health coordinator. [facility] 2 hours per day. Pt. and sister state that he can wash 90% of his body, but needs help in stance with balance and washing karen area. Pt. can dress self, except needs assist in stance to pull pants over hips. Pt went to Neuro-building maintenance superintendent, who recommended prism glasses, (currently being made), and intensive visual therapy. At this time, they were unable to get into vision therapy due to housing issues. Physician felt it would be best for pt. to have inpt. rehab. Self Care: Needed Some Help Functional Cognition: Needed Some Help DME/Equipment: Bath Chair, Shower DME/Equipment Comments Pt. has wheelchair, walker, and power chair. OT Current Status Subjective No pain reported. Appearance Pt. is up in wheelchair. Sister in room with him and assists with answering questions. Mental Status/Objective Patient Orientation: Person Pt. requires cues at times to stay on task. Current Hand Dominance: Left Upper Extremity ROM WFL. However, right UE is slower to raise. Upper Extremity Coordination Impaired right UE Upper Extremity Strength Right- 3/5 Left- 4/5 ADL-Treatment Eating (QC): 7 Oral Hygiene (QC): 7 Shower/Bathe Self (QC): 7 Upper Body Dressing (QC): 10 Lower Body Dressing (QC): 4 (Socks and shoes only) On/Off Footwear (QC): 4 Toileting Hygiene (QC): 7 Toilet Transfer (QC): 7 Pt. up in wheelchair. Already dressed for the day, as he had come from home. Declined ADLs at this time, but will complete in a.m. Pt. very verbal and often needs re-directed on topic. Sister in room and is able to give good information. Pt. stood with min assist from wheelchair, and stood approximately 2 minutes. No steps taken at this time. Noted decreased coordination in right hand. Spoke with pt. and sister in depth regarding pt's current and previous status. Pt. has had series of hospitalizations since original CVA. Pt. and sister would like pt. to become stronger, and to be able to balance in stance to complete ADL skills. Education OT Patient Education: Correct positioning, Disease process, Exercise program, Instructions to caregiver, Modified ADL techniques, Progress toward Goal/Update tx plan, Purpose of tx/functional activities, Reviewed precautions, Rehab process, Transfer techniques Teaching Recipient: Patient, Family Teaching Methods: Demonstration, Discussion Response to Teaching: Verbalize Understanding, Return Demonstration OT Short Term Goals Short Term Goals Time Frame: Jan 28, 2019 Eating(FIM): 5 Grooming(FIM): 4 Bathing(FIM): 4 Upper Body Dressing(FIM): 4 Lower Body Dressing(FIM): 5 Toileting(FIM): 4 Transfers (B,C,W/C) (FIM): 4 Toilet/Commode Transfer(FIM): 4 Shower Transfer(FIM): 3 Additional Short Term Goals: 1-Demonstrate ADL Tasks, 2-Verbalize Understanding, 3-ImproveStrength/Omar 1=Demonstrate adherence to instructed precautions during ADL tasks. 2=Patient will verbalize/demonstrate understanding of assistive devices/modifications for ADL. 3=Patient will improve strength/tolerance for activity to enable patient to p erform ADL's. OT Senior Care Goals Senior Care Goals Time Frame: Feb 11, 2019 Eating (QC): 6 Oral Hygiene (QC): 6 Shower/Bathe Self (QC): 5 Upper Body Dressing (QC): 5 Lower Body Dressing (QC): 5 On/Off Footwear (QC): 5 Toileting Hygiene (QC): 5 Toilet/Commode Transfer (QC): 5 Additional Goals: 1-Demonstrate ADL Tasks, 2-Verbalize Understanding, 3- ImproveStrength/Omar 1=Demonstrate adherence to instructed precautions during ADL tasks. 2=Patient will verbalize/demonstrate understanding of assistive devices/modifications for ADL. 3=Patient will improve strength/tolerance for activity to enable patient to perform ADL's. OT Education/Plan Problem List/Assessment Assessment: Decreased Activ Tolerance, Decreased Safety Aware, Decreased UE Strength, Dependent Transfers, Impaired Cognition, Impaired Coordination, Impaired Funct Balance, Impaired I ADL's, Impaired Self-Care Skills Discharge Recommendations Plan/Recommendations: Continue POC Therapy Discharge Recommendati: Scheduled Assistance, Post Acute OT Comment Equipment needs to be determined. Treatment Plan/Plan of Care Treatment,Training & Education: Yes Patient would benefit from OT for education, treatment and training to promote independence in ADL's, mobility, safety and/or upper extremity function for ADL's. Plan of Care: ADL Retraining, Functional Mobility, Group Exercise/Act as Ind, UE Funct Exercise/Act, UE Neuromus Re-Ed/Coord, Visual/Perceptual Retrain Treatment Duration: Feb 11, 2019 Frequency: At least 5 of 7 days/Wk (IRF) Estimated Hrs Per Day: 1.5 hours per day Agreement: Yes Rehab Potential: Fair Time/GCodes Start Time: 10:00 Stop Time: 11:00 Total Time Billed (hr/min): 60 Billed Treatment Time 1, EVM x 15minutes, FA x 45minutes ARMEN KOCH OT Jan 21, 2019 14:47
[2019-01-21] MEDS: hydrALAZINE (APRESOLINE) 25 MG TAB PO SCH ×2 (15:00→20:08)
--- NOTE | 2019-01-21 15:08 | ST Cognitive Linguistic Eval ---
Speech Evaluation-General Medical Diagnosis Cerebellar hemorrhage Onset Date: Jun 17, 2018 Therapy Diagnosis Therapy Diagnosis: Cognitive-communication Precautions Precautions: Fall, Aspiration Precautions/Isolations: Aspiration, Fall Prevention, Standard Precautions Referral Referring Physician: Dr. Lopez Reason for Referral: Evaluation/Treatment Medical History Pertinent Medical History: CVA CVA Current History Cerebellar hemorrhage Reviewed History: Yes Social History Home: Single Level Current Living Status: Other Family Speech PLF-Current Status Prior Level of Function Patient lives in his home with his sister. He is independent for many of his daily needs, however his sister assists as needed. Subjective Patient was pleasant and cooperative with the cognitive evaluation. Language Eval: Auditory Comprehends Simple Yes/No Ques: Functional Indent/Objects Multiple Reyes: Functional Ident/Pics in Multiple Reyes: Functional Follows 1-Step Commands: Functional Follows Complex Directions: Mild Follows General Conversations: Functional Language Eval: Verbal Language Completes Spontaneous Greeting: Functional Produces Auto, Serial Info: Functional Imitates Simple Words/Phrases: Functional Word Finding: Mild Requests Basic Needs: Functional States Basic Personal Info: Functional Expresses Complex Ideas: Mild Objective Cognitive Domain Attention: WNL Memory: WNL Problem Solving: Mild Executive Functions: Mild Visuospatial Skills: Moderate Composite Severity Rating: Mild Clock Drawing Severity Rating: Mild Objective Formal/Standardized Tests [facility] Status ([facility]) Results , within the Mild Neurocognitive Disorder level of function Oral Motor/Speech Production Mildly distorted with 75% intelligibility. Impression Patient is a pleasant 63 year old man who suffered a stroke in June 2018. The patient was given the UMS with results of in the MNCD level of function. The patient qualifies for skilled cognitive and speech therapy. Speech Patient Assess Expression of Ideas/Wants: Exhibits (3) Understanding Verbal Content: Usually Understands (3) Brief Interview-Mental Status: Yes Repetition of Three Words: Three (3) Temporal Orientation: Year: Correct (3) Temporal Orientation: Month: Accurate within 5 days(2) Temporal Orientation: Day: Correct (1) Recall : Wear to say "Sock": Yes,after cueing (1) Recall : Color: Yes, after cueing (1) Recall : Bed: No, could not recall (0) Memory/Recall Ability: Current season, Location of own room, Staff names and faces, That he or she is in a hsp/hsp unit Speech Short Term Goals Short Term Goals Short Term Goals 1) The patient will complete memory exercises related to his daily needs at 90% or greater given 10% or less in cues. 2) The patient will complete problem solving exercises related to his daily needs at 90% or greater given 10% or less in cues. 3) The patient will complete safety awareness exercises related to his daily needs at 90% or greater given 10% or less in cues. 4) The patient will complete speech intelligibility exercises for improved production at 90% or greater. Speech Fdc Goals Fdc Goals Patient will improve speech and cognitive levels for better communication within his living environment. Speech-Plan Patient/Family Goals Patient/Family Goals: The patient plans on returning to his home with his sister's assistance upon discharge from rehab. Treatment Plan Speech Therapy Treatment Plan: Continue Plan of Care Patient will receive skilled ST for cognitive and speech production. Treatment Duration: Feb 01, 2019 Frequency: 5 times per week Estimated Hrs Per Day: .5 hour per day Rehab Potential: Fair Barriers to Learning: Patient has cognitive and speech deficits from residual affects of his recent CVA Pt/Family Agrees to Plan: Yes Safety Risks/Education Teaching Recipient: Patient Teaching Methods: Discussion Response to Teaching: Verbalize Understanding Education Topics Provided: Safety within his room and communication of his wants/needs Time Speech Therapy Time In: 11:45 Speech Therapy Time Out: 12:00 Total Billed Time: 15 Billed Treatment Time 1, LULA Calles Jan 21, 2019 15:08
--- NOTE | 2019-01-21 15:22 | ST Dysphagia Evaluation ---
Speech Evaluation-General Medical Diagnosis Cerebellar hemorrhage Onset Date: Jun 17, 2018 Therapy Diagnosis Therapy Diagnosis: Oropharyngeal Dysphagia Precautions Precautions: Fall, Aspiration Precautions/Isolations: Aspiration, Fall Prevention, Standard Precautions Referral Referring Physician: Dr. Lopez Reason for Referral: Evaluation/Treatment Medical History Pertinent Medical History: CVA CVA Current History Cerebellar Hemorrhage Reviewed History: Yes Social History Home: Single Level Current Living Status: Other Family Speech PLF/Current-Dysphagia Prior Level of Function Patient lives in his own home with his sister. He is independent for much of his daily needs, however his sister is available for assistance as needed. Cognitive Status Patient Orientation: Person, Place, Time, Situation Oral Motor Skills Denture Type: Full- Upper & Lower Current Food Consistancy: Regular, Thin Liquids Ability to Follow Directions: Good Oral Expression Ability: Mild Impairment Voice Voice Phonatory-Based Quality: Weak, Aphonia Voice Pitch: Mildly Low Voice Loudness: Mildly Soft/Quiet Face Facial Symmetry: Symmetrical Oral-Facial Assessment Oral-Facial Dentition: Normal Labial Seal Description: Normal Puff Cheeks: Normal Lingual Protrusion: Normal Lingual ROM: Normal Lingual Strength: Normal Pharynx Velopharyngeal Move.: Normal Volitional Dry Swallow: Yes Voluntary Cough: Yes Can Clear Throat Volitionally: Yes Productive Cough: No Productive Throat Clear: No Dysphagia Evaluation Consistencies Presented: Regular, Thin Liquid, Mechanical Soft, Pureed Oral Phase: Reduced Oral Transit 5 second delay for regular textures, however no cough noted Pharyngeal phase appears within normal range. Dietary Recommendations: Regular Liquid Recommendations: Thin Swallowing Precautions: Alternate Liquids/Solids, Double Swallow, Decreased Rate of Oral Intake, Liquids from Straw, Small Bites and Sips, Sitting Upright 90 Degrees, Sitting 90 Degrees 30 Post Intake Dysphagia Evaluation Summary Patient is a 63 year old male who had a CVA on 07/03. He has a history of increased dysphagia secondary to the CVA, however he is on regular without difficulty. However he does exhibit a slight swallow onset and requires verbal cues to take smaller bites. He will receive skilled dysphagia therapy to train for compensatory strategies for safe oral intake. Speech Short Term Goals Short Term Goals Short Term Goals 1) The patient will complete memory exercises related to his daily needs at 90% or greater given 10% or less in cues. 2) The patient will complete problem solving exercises related to his daily needs at 90% or greater given 10% or less in cues. 3) The patient will complete safety awareness exercises related to his daily needs at 90% or greater given 10% or less in cues. 4) The patient will complete speech intelligibility exercises for improved production at 90% or greater. 5) The patient will tolerate least restrictive diet level without s/s of aspiration at 90% or greater. 6) The patient will utilize compensatory strategies as trained for safe oral intake at 90% or greater given 10% or less in cues. Speech Assembling Inspector Goals Half-Way Goals Patient will improve speech and cognitive levels for better communication within his living environment. Patient will maintain adequate nutrition/hydration via safe effective swallow function. Speech-Plan Patient/Family Goals Patient/Family Goals: The patient plans on returning home with his sister post rehab. Treatment Plan Speech Therapy Treatment Plan: Continue Plan of Care Patient will receive skilled ST for training of compensatory strategies for safe oral intake. Treatment Duration: Feb 01, 2019 Frequency: 5 times per week Estimated Hrs Per Day: .5 hour per day Rehab Potential: Fair Barriers to Learning: Patient has some residual cognitive deficits from recent CVA Pt/Family Agrees to Plan: Yes Safety Risks/Education Teaching Recipient: Patient Teaching Methods: Demonstration, Discussion Response to Teaching: Verbalize Understanding, Return Demonstration Education Topics Provided: Safety of oral intake, compensatory strategies Time Speech Therapy Time In: 12:00 Speech Therapy Time Out: 12:15 Total Billed Time: 15 Billed Treatment Time ASHANTI Sanchez [facility] ST Jan 21, 2019 15:22
[2019-01-21 17:37] VITALS: BP 145/86
[2019-01-21] MEDS ORDERED: HYDROcodone/APAP 5 MG/325 MG (LORTAB) TAB PO PRN (21:00)
[2019-01-21] MEDS ORDERED: CALCIUM CARBONATE 500 MG (TUMS) TAB.CHEW PO PRN (21:00)
[2019-01-21] MEDS ORDERED: ONDANSETRON 4 MG (ZOFRAN) ORAL DISSOLVE TAB PO PRN (21:00)
[2019-01-21] MEDS ORDERED: POLYETHYLENE GLYCOL 17 GM (MIRALAX) PACK PO PRN (21:00)
[2019-01-21] MEDS ORDERED: diphenhydrAMINE 25 MG TAB (BENADRYL) PO PRN (21:00)
[2019-01-21] MEDS ORDERED: DOCUSATE SODIUM 100 MG (COLACE) CAP PO PRN (21:00)
[2019-01-21] MEDS ORDERED: ACETAMINOPHEN 500 MG TAB (TYLENOL) PO PRN (21:00)
[2019-01-21] MEDS ORDERED: LOPERAMIDE 2 MG (IMODIUM) TABLET PO PRN (21:00)
[2019-01-21] MEDS ORDERED: SENNA W/DOCUSATE (SENOKOT S) TABLET PO PRN (21:00)
[2019-01-22] MEDS: hydrALAZINE (APRESOLINE) 25 MG TAB PO SCH ×4 (02:38→20:04)
[2019-01-22 06:12] VITALS: BP 143/82
[2019-01-22 06:20] LABS: BASOPHILS # (AUTO) 0.1 10^3/uL (0.0-0.1); BASOPHILS % (AUTO) 1 % (0-10); EOSINOPHILS # (AUTO) 0.1 10^3/uL (0.0-0.3); EOSINOPHILS % (AUTO) 2 % (0-10); HEMATOCRIT 47 % (40-54); HEMOGLOBIN 15.4 G/DL (13.3-17.7); LYMPHOCYTES # (AUTO) 1.5 X 10^3 (1.0-4.0); LYMPHOCYTES % (AUTO) 24 % (12-44); MEAN CORPUSCULAR HEMOGLOBIN 28 PG (25-34); MEAN CORPUSCULAR HGB CONC 33 G/DL (32-36); MEAN CORPUSCULAR VOLUME 85 FL (80-99); MEAN PLATELET VOLUME 9.1 FL (7.4-10.4); MONOCYTES # (AUTO) 0.7 X 10^3 (0.0-1.0); MONOCYTES % (AUTO) 12 % (0-12); NEUTROPHILS % (AUTO) 62 % (42-75); PLATELET COUNT 295 10^3/uL (130-400); RED CELL DISTRIBUTION WIDTH 14.7 % (10.0-14.5); WHITE BLOOD COUNT 6.4 10^3/uL (4.3-11.0)
[2019-01-22 06:43] LABS: ALANINE AMINOTRANSFERASE 19 U/L (0-55); ALBUMIN 3.9 GM/DL (3.2-4.5); ALKALINE PHOSPHATASE 62 U/L (40-136); BILIRUBIN,TOTAL 0.4 MG/DL (0.1-1.0); BUN/CREATININE RATIO 14; CALCIUM 9.5 MG/DL (8.5-10.1); CARBON DIOXIDE 27 MMOL/L (21-32); CHLORIDE 103 MMOL/L (98-107); GFR ESTIMATED > 60; GLUCOSE 95 MG/DL (70-105); POTASSIUM 4.3 MMOL/L (3.6-5.0); SODIUM 140 MMOL/L (135-145); TOTAL PROTEIN 6.8 GM/DL (6.4-8.2)
[2019-01-22] MEDS: amLODIPine 5 MG (NORVASC) TAB PO SCH (07:51)
[2019-01-22] MEDS: meTOproloL SUCCINATE 50 MG (TOPROL XL) TAB PO SCH (07:51)
[2019-01-22 08:00] VITALS: BP 130/82
[2019-01-22] MEDS ORDERED: NON-FORMULARY MEDICATION 1 EA EA (Amlodipine Besylate 5 MG) PO SCH (09:00)
--- NOTE | 2019-01-22 09:37 | PM&R Progress Note ---
Subjective HPI/CC On Admission Date Seen by Provider: Jan 22, 2019 Time Seen by Provider: 08:15 CC: Debility following intracerebral hemorrhage of cerebellum HPI: This is a 63[facility]WM clinic patient of [facility] Dr Patiño who presents to IRF at the request of his neurologist following a lengthy 7 month course following a HTN source of cerebellar hemorrhage which required surgical intervention after transferred from [facility] then to [facility] then required ICU monitoring and PEG and trach then transferred to [place] on 07/23/18 and had a lengthy stay and then was admitted to [facility] for slow recovery and ultimately DC home with sister and now ready to participate in therapies in order to regain lost functioning. Patient has a h/o ETOH abuse and tobacco use both of which have ceased now since illness. Subjective/Events-last exam Labs are okay. BP is okay. Bowels are moving well. Feels really good. Overall progressing well. Trying to work on right-sided weakness and ambulation with assistive device. Checked meds and labs. Reviewed therapy notes. Conferred with RN. Review of Systems Neurological: Weakness, Numbness, Incoordination Objective Exam Vital Signs Vital Signs Date Time Temp Pulse Resp B/P (MAP) Pulse Ox O2 Delivery O2 Flow Rate FiO2 01/22/19 18:00 36.4 70 18 146/64 (91) 96 Room Air 01/21/19 20:10 0.00 Capillary Refill : General Appearance: No Apparent Distress, WD/WN, Chronically ill HEENT: PERRL/EOMI, Normal ENT Inspection, Pharynx Normal, Moist Mucous Membranes Neck: Full Range of Motion, Normal Inspection, Non Tender, Supple Respiratory: Chest Non Tender, Lungs Clear, Normal Breath Sounds, No Accessory Muscle Use, No Respiratory Distress Cardiovascular: Regular Rate, Rhythm, No Edema, No Gallop, No JVD, No Murmur Gastrointestinal: Normal Bowel Sounds, No Organomegaly, No Pulsatile Mass, Non Tender, Soft Back: Normal Inspection, No CVA Tenderness, No Vertebral Tenderness Extremity: Normal Capillary Refill, Normal Inspection, Normal Range of Motion, Non Tender, No Calf Tenderness, No Pedal Edema Neurologic/Psychiatric: Alert, Oriented x3, No Motor/Sensory Deficits, Normal Mood/Affect, Motor Weakness (right sided upper and lower) Skin: Normal Color, Warm/Dry Lymphatic: No Adenopathy Results/Procedures Lab Laboratory Tests 01/22/19 06:10 Patient resulted labs reviewed. FIM Transfers Therapy Code Descriptions/Definitions Functional [place] Measure: 0=Not Assessed/NA 4=Minimal Assistance 1=Total Assistance 5=Supervision or Setup 2=Maximal Assistance 6=Modified [place] 3=Moderate Assistance 7=Complete IndependenceSCALE: Activities may be completed with or without assistive devices. 2-Iemssazvym-csrfaxc completes the activity by him/herself with no assistance from a helper. 5-Set-up or Clean-up Assistance-helper sets up or cleans up; patient completes activity. [place] assists only prior to or following the activity. 4-Supervision or Touching Assistance-helper provides verbal cues and/or touching/steadying and/or contact guard assistance as patient completes activity. Assistance may be provided throughout the activity or intermittently. 3-Partial/Moderate Assistance-helper does LESS THAN HALF the effort. [place] lifts, holds or supports trunk or limbs, but provides less than half the effort. 2-Substantial/Maximal Assistance-helper does MORE THAN HALF the effort. [place] lifts or holds trunk or limbs and provides more than half the effort. 6-Zvhqvtppy-ytznin does ALL the effort. Patient does none of the effort to complete the activity. Or, the assistance of 2 or more helpers is required for the patient to complete the activity. If activity was not attempted, code reason: 7-Patient Refused. 9-Not Applicable-not attempted and the patient did not perform the activity before the current illness, exacerbation or injury. 10-Not Attempted due to Environmental Limitations-(lack of equipment, weather restraints, etc.). 88-Not Attempted due to Medical Conditions or Safety Concerns. Roll Left to Right (QC): 6 Sit to Lying (QC): 6 Sit to Stand (QC): 4 Chair/Yci-zx-Aafzb Xfer(QC): 4 Car Transfer (QC): 4 Gait Training Does the Patient Walk?: Yes Walk 10 feet (QC): 4 Walk 50 ft with 2 Turns(QC): 4 Walk 150 ft (QC): 4 Walking 10ft/uneven surface-QC: 4 Gait Persons Needed: 1 Gait Assistive Device: FWW Wheelchair Training Does the Pt Use a Wheelchair?: Yes Distance: 150' Wheel 50 ft with 2 turns (QC): 6 Wheel 150 ft (QC): 6 Type of Wheelchair: Manual Stair Training #of Steps: 4 1 Step (curb) (QC): 4 4 Steps (QC): 4 Balance Picking up an Object (QC): 4 (CGA) ADL-Treatment Eating (QC): 7 Oral Hygiene (QC): 7 Shower/Bathe Self (QC): 7 Upper Body Dressing (QC): 10 Lower Body Dressing (QC): 4 (Socks and shoes only) On/Off Footwear (QC): 4 Toileting Hygiene (QC): 7 Toilet Transfer (QC): 7 Assessment/Plan Assessment and Plan Assess & Plan/Chief Complaint Assessment: ICH cerebellar 07/03 Right sided weakness Former smoker ETOHism hx Plan: Monitor BP Home meds PT/OT Monitor bowel function (1) Intracranial hemorrhage Status: Chronic (2) Stroke (3) GERD (gastroesophageal reflux disease) Status: Chronic Qualifiers: Esophagitis presence: without esophagitis Qualified Codes: K21.9 - Gastro- esophageal reflux disease without esophagitis (4) Hypertension Status: Chronic Qualifiers: Hypertension type: essential hypertension Qualified Codes: I10 - Essential (primary) hypertension (5) History of alcohol abuse Status: Chronic (6) Former smoker Status: Chronic HAWK LOZA DO Jan 22, 2019 09:37
--- NOTE | 2019-01-22 11:19 | Occupational Ther Daily Note ---
OT Current Status-Daily Note Subjective No pain reported. Appearance Pt. up in wheelchair. Agrees to work with OT. Mental Status/Objective Patient Orientation: Person, Place ADL-Treatment Therapy Code Descriptions/Definitions Functional [place] Measure: 0=Not Assessed/NA 4=Minimal Assistance 1=Total Assistance 5=Supervision or Setup 2=Maximal Assistance 6=Modified [place] 3=Moderate Assistance 7=Complete IndependenceSCALE: Activities may be completed with or without assistive devices. 5-Cmhritvrql-qtrhhka completes the activity by him/herself with no assistance from a helper. 5-Set-up or Clean-up Assistance-helper sets up or cleans up; patient completes activity. [place] assists only prior to or following the activity. 4-Supervision or Touching Assistance-helper provides verbal cues and/or touchi ng/steadying and/or contact guard assistance as patient completes activity. Assistance may be provided throughout the activity or intermittently. 3-Partial/Moderate Assistance-helper does LESS THAN HALF the effort. [place] [employer] lifts, holds or supports trunk or limbs, but provides less than half the effort. 2-Substantial/Maximal Assistance-helper does MORE THAN HALF the effort. [employer] [employer] lifts or holds trunk or limbs and provides more than half the effort. 3-Btjesekkh-dkdikz does ALL the effort. Patient does none of the effort to complete the activity. Or, the assistance of 2 or more helpers is required for the patient to complete the activity. If activity was not attempted, code reason: 7-Patient Refused. 9-Not Applicable-not attempted and the patient did not perform the activity before the current illness, exacerbation or injury. 10-Not Attempted due to Environmental Limitations-(lack of equipment, weather restraints, etc.). 88-Not Attempted due to Medical Conditions or Safety Concerns. Eating (QC): 10 Oral Hygiene (QC): 5 Shower/Bathe Self (QC): 3 Upper Body Dressing (QC): 4 Lower Body Dressing (QC): 4 Toileting Hygiene (QC): 2 Toilet Transfer (QC): 4 Other Treatment Pt. agrees to shower. Noted that pt. had been incontinent of stool in brief. OT assisted him with cleansing rear karen area in shower. Pt. able to wash all other parts with cues for safety, as pt. wants to stand to complete whole shower. Pt. encouraged to sit to complete it, and does well. After shower, pt. transferred to wheelchair and completed drying/dressing tasks. Groomed at sink and stood at toilet with CGA for balance to urinate. Pt. able to self propel wheelchair to therapy gym. Completed 15 minutes on arm bike at mod resistance f or overall strengthening and endurance. Pt. and OT talked about things that he was interested in. Self propelled back to room and up in wheelchair waiting for PT. Education OT Patient Education: Correct positioning, Exercise program, Modified ADL techniques, Progress toward Goal/Update tx plan, Purpose of tx/functional activities, Reviewed precautions, Rehab process, Transfer techniques, W/C management Teaching Recipient: Patient Teaching Methods: Demonstration, Discussion Response to Teaching: Verbalize Understanding, Return Demonstration OT Short Term Goals Short Term Goals Time Frame: Jan 28, 2019 Eating(FIM): 5 Grooming(FIM): 4 Bathing(FIM): 4 Upper Body Dressing(FIM): 4 Lower Body Dressing(FIM): 5 Toileting(FIM): 4 Transfers (B,C,W/C) (FIM): 4 Toilet/Commode Transfer(FIM): 4 Shower Transfer(FIM): 3 Additional Short Term Goals: 1-Demonstrate ADL Tasks, 2-Verbalize Understanding, 3-ImproveStrength/Omar 1=Demonstrate adherence to instructed precautions during ADL tasks. 2=Patient will verbalize/demonstrate understanding of assistive devices/modifications for ADL. 3=Patient will improve strength/tolerance for activity to enable patient to perform ADL's. OT Intermediate Goals Intermediate Goals Time Frame: Feb 11, 2019 Eating (QC): 6 Oral Hygiene (QC): 6 Shower/Bathe Self (QC): 5 Upper Body Dressing (QC): 5 Lower Body Dressing (QC): 5 On/Off Footwear (QC): 5 Toileting Hygiene (QC): 5 Toilet/Commode Transfer (QC): 5 Additional Goals: 1-Demonstrate ADL Tasks, 2-Verbalize Understanding, 3- ImproveStrength/Omar 1=Demonstrate adherence to instructed precautions during ADL tasks. 2=Patient will verbalize/demonstrate understanding of assistive devices/modifications for ADL. 3=Patient will improve strength/tolerance for activity to enable patient to perform ADL's. OT Education/Plan Problem List/Assessment Assessment: Decreased Activ Tolerance, Decreased Safety Aware, Decreased UE St rength, Dependent Transfers, Impaired Cognition, Impaired Funct Balance, Impaired I ADL's, Impaired Self-Care Skills Discharge Recommendations Plan/Recommendations: Continue POC Therapy Discharge Recommendati: Post Acute OT Treatment Plan/Plan of Care Treatment,Training & Education: Yes Patient would benefit from OT for education, treatment and training to promote independence in ADL's, mobility, safety and/or upper extremity function for ADL's. Plan of Care: ADL Retraining, Functional Mobility, Group Exercise/Act as Ind, UE Funct Exercise/Act, UE Neuromus Re-Ed/Coord, Visual/Perceptual Retrain Treatment Duration: Feb 11, 2019 Frequency: At least 5 of 7 days/Wk (IRF) Estimated Hrs Per Day: 1.5 hours per day Agreement: Yes Rehab Potential: Fair Time/GCodes Start Time: 09:45 Stop Time: 11:00 Total Time Billed (hr/min): 75 Billed Treatment Time 1, ADL x 60minutes, Ex x 15minutes ARMEN KOCH OT Jan 22, 2019 11:19
--- NOTE | 2019-01-22 11:52 | Physical Therapy Daily Note ---
PT Daily Note-Current Subjective Pt sitting in W/C after just finishing with OT upon arrival. Pt agrees to PT. Pain Location: No Pain Reported Mental Status Patient Orientation: Person, Place Pt is very impulsive and struggles with safety awareness. Transfers SCALE: Activities may be completed with or without assistive devices. 3-Clqoedvxns-qijvxlp completes the activity by him/herself with no assistance from a helper. 5-Set-up or Clean-up Assistance-helper sets up or cleans up; patient completes activity. [place] assists only prior to or following the activity. 4-Supervision or Touching Assistance-helper provides verbal cues and/or touching/steadying and/or contact guard assistance as patient completes activity. Assistance may be provided throughout the activity or intermittently. 3-Partial/Moderate Assistance-helper does LESS THAN HALF the effort. [place] lifts, holds or supports trunk or limbs, but provides less than half the effort. 2-Substantial/Maximal Assistance-helper does MORE THAN HALF the effort. [place] lifts or holds trunk or limbs and provides more than half the effort. 6-Agzupgrkz-ljfzzv does ALL the effort. Patient does none of the effort to complete the activity. Or, the assistance of 2 or more helpers is required for the patient to complete the activity. If activity was not attempted, code reason: 7-Patient Refused. 9-Not Applicable-not attempted and the patient did not perform the activity before the current illness, exacerbation or injury. 10-Not Attempted due to Environmental Limitations-(lack of equipment, weather restraints, etc.). 88-Not Attempted due to Medical Conditions or Safety Concerns. Sit to Stand (QC): 5 Weight Bearing Full Weight Bearing Full Weight Bearing Gait Training Does the Patient Walk?: Yes Gait: 4 Distance: 200', 400', 200' Walk 10 feet (QC): 4 Walk 50 ft with 2 Turns(QC): 4 Walk 150 ft (QC): 4 Walking 10ft/uneven surface-QC: 4 Gait Persons Needed: 1 Gait Assistive Device: FWW Pt is very impulsive and tries to walk w/o AD. Pt is not stable w/AD so should continue to use AD. Pt scissors as he walks as well as leans slight to L side. Pt fatigues easily. Wheelchair Training Does the Pt Use a Wheelchair?: Yes Wheelchair Distance: 3=150 ft Distance: 500' Wheel 50 ft with 2 turns (QC): 5 Wheel 150 ft (QC): 5 Type of Wheelchair: Manual Treatments Pt propels W/C as well as ambulates in hallway and on main floor of hospital as well as in outside garden area for balance practice. Pt takes RB as needed both standing as well as seated in W/C and on bench. Pt returns to room at end of tx to use restroom and rest in W/C. HARDWARE DESIGNER assists pt with ordering lunch. Pt resting at end of tx with all needs met, call light in hand. Assessment Current Status: Fair Progress Pt continues to remain impulsive and struggles with safety and problem solving. PT Short Term Goals Short Term Goals Time Frame: Jan 28, 2019 Gait Distance Comment: 200' Gait Assistive Device: FWW (SBA) Wheelchair Distance: 150' PT Desk Editor Goals Prison Goals PT Prison Goals Time Frame: Feb 11, 2019 Sit to Lying (QC): 6 Lying-Sitting on Side/Bed(QC): 6 Sit to Stand (QC): 6 Roll Left to Right (QC): 6 Chair/Tcr-yf-Klcze Xfer(QC): 6 Car Transfer (QC): 6 Distance: 300' Walk 10 feet (QC): 6 Walk 10ft-Uneven Surface(QC): 6 Walk 50ft with 2 Turns (QC): 6 Walk 150 ft (QC): 6 Gait Assistive Device: FWW # of Steps: 12 (SBA) 1 Step (curb) (QC): 4 4 Steps (QC): 4 12 Steps (QC): 4 Picking up an Object (QC): 4 (SBA) PT Plan Problem List Problem List: Activity Tolerance, Functional Strength, Safety, Balance, Gait Treatment/Plan Treatment Plan: Continue Plan of Care Treatment Plan: Education, Functional Activity Omar, Functional Strength, Group Therapy, Gait, Safety, Therapeutic Exercise, Transfers Treatment Duration: Feb 11, 2019 Frequency: At least 5 of 7 days/Wk (IRF) Estimated Hrs Per Day: 1.5 hours per day Patient and/or Family Agrees t: Yes Safety Risks/Education Patient Education: Gait Training, Correct Positioning, Safety Issues Teaching Recipient: Patient Teaching Methods: Discussion Response to Teaching: Reinforcement Needed Time/GCodes Time In: 1100 Time Out: 1145 Total Billed Treatment Time: 45 Total Billed Treatment 1, GT x2 (30m), FA (15m) DERRICK CORONA HARDWARE DESIGNER Jan 22, 2019 11:52
[2019-01-22 14:25] VITALS: BP 139/84
--- NOTE | 2019-01-22 14:25 | Physical Therapy Daily Note ---
PT Daily Note-Current Subjective Pt laying Supine in bed upon arrival. Pt agrees to PT but is very drowsy. Pain Location: No Pain Reported Mental Status Patient Orientation: Person, Confused, Place Transfers SCALE: Activities may be completed with or without assistive devices. 2-Cteflbiehn-kjatkhs completes the activity by him/herself with no assistance from a helper. 5-Set-up or Clean-up Assistance-helper sets up or cleans up; patient completes activity. [place] assists only prior to or following the activity. 4-Supervision or Touching Assistance-helper provides verbal cues and/or touching/steadying and/or contact guard assistance as patient completes activity. Assistance may be provided throughout the activity or intermittently. 3-Partial/Moderate Assistance-helper does LESS THAN HALF the effort. [place] lifts, holds or supports trunk or limbs, but provides less than half the effort. 2-Substantial/Maximal Assistance-helper does MORE THAN HALF the effort. [place] lifts or holds trunk or limbs and provides more than half the effort. 8-Dhmepcrca-byztgj does ALL the effort. Patient does none of the effort to complete the activity. Or, the assistance of 2 or more helpers is required for the patient to complete the activity. If activity was not attempted, code reason: 7-Patient Refused. 9-Not Applicable-not attempted and the patient did not perform the activity before the current illness, exacerbation or injury. 10-Not Attempted due to Environmental Limitations-(lack of equipment, weather restraints, etc.). 88-Not Attempted due to Medical Conditions or Safety Concerns. Weight Bearing Full Weight Bearing Full Weight Bearing Exercises Supine Ex: Ankle pumps, Quad Set, Glut sets, Heel Slides, Straight leg raise, Hip abd/add Supine Reps: 20 Treatments Pt completes Supine EX in bed due to fatigue from morning tx as well as drowsiness. Pt resting in bed at end of tx with all needs met, call light next to pt. Assessment Current Status: Fair Progress Pt needs VC for safety especially with using FWW to ambulate instead of no AD. Pt also tries to take self to restroom. Pt is given VC for social awareness. PT Short Term Goals Short Term Goals Time Frame: Jan 28, 2019 Gait Distance Comment: 200' Gait Assistive Device: FWW (SBA) Wheelchair Distance: 500' PT Bunch Breaker Goals Shelter Goals PT Shelter Goals Time Frame: Feb 11, 2019 Sit to Lying (QC): 6 Lying-Sitting on Side/Bed(QC): 6 Sit to Stand (QC): 6 Roll Left to Right (QC): 6 Chair/Ifg-ho-Foizo Xfer(QC): 6 Car Transfer (QC): 6 Distance: 300' Walk 10 feet (QC): 6 Walk 10ft-Uneven Surface(QC): 6 Walk 50ft with 2 Turns (QC): 6 Walk 150 ft (QC): 6 Gait Assistive Device: FWW # of Steps: 12 (SBA) 1 Step (curb) (QC): 4 4 Steps (QC): 4 12 Steps (QC): 4 Picking up an Object (QC): 4 (SBA) PT Plan Problem List Problem List: Activity Tolerance, Functional Strength, Safety, Balance, Gait Treatment/Plan Treatment Plan: Continue Plan of Care Treatment Plan: Education, Functional Activity Omar, Functional Strength, Group Therapy, Gait, Safety, Therapeutic Exercise, Transfers Treatment Duration: Feb 11, 2019 Frequency: At least 5 of 7 days/Wk (IRF) Estimated Hrs Per Day: 1.5 hours per day Patient and/or Family Agrees t: Yes Safety Risks/Education Patient Education: Correct Positioning, Safety Issues Teaching Recipient: Patient Teaching Methods: Discussion Response to Teaching: Reinforcement Needed Time/GCodes Time In: 1330 Time Out: 1400 Total Billed Treatment Time: 30 Total Billed Treatment 1, EX x2 (30m) DERRICK CORONA TUBING MILL OPERATOR Jan 22, 2019 14:25
--- NOTE | 2019-01-22 14:51 | Speech Therapy Daily Note ---
Speech Daily Progress Note Subjective Date Seen by Provider: Jan 22, 2019 Time Seen by Provider: 00:30 Patient was resting in his wheelchair when I entered his room. Objective Patient completed memory and safety awareness tasks related to his daily needs at 85% with 20% verbal cues and/or repetitions. Assessment Assessment Current Status: Good Progress Treatment Plan Continue Plan of Care Speech Short Term Goals Short Term Goals Short Term Goals 1) The patient will complete memory exercises related to his daily needs at 90% or greater given 10% or less in cues. 2) The patient will complete problem solving exercises related to his daily needs at 90% or greater given 10% or less in cues. 3) The patient will complete safety awareness exercises related to his daily needs at 90% or greater given 10% or less in cues. 4) The patient will complete speech intelligibility exercises for improved production at 90% or greater. 5) The patient will tolerate least restrictive diet level without s/s of aspiration at 90% or greater. 6) The patient will utilize compensatory strategies as trained for safe oral intake at 90% or greater given 10% or less in cues. Speech Fdc Goals Cell Stripper Goals Patient will improve speech and cognitive levels for better communication within his living environment. Patient will maintain adequate nutrition/hydration via safe effective swallow function. Speech-Plan Patient/Family Goals Patient/Family Goals: Patient plans on returning to his home where he lives with his sister post rehab. Treatment Plan Speech Therapy Treatment Plan: Continue Plan of Care Patient was attentive during the session. Treatment Duration: Feb 01, 2019 Frequency: 5 times per week Estimated Hrs Per Day: .5 hour per day Rehab Potential: Fair Barriers to Learning: After affects of the CVA Pt/Family Agrees to Plan: Yes Safety Risks/Education Teaching Recipient: Patient Teaching Methods: Demonstration, Discussion Response to Teaching: Verbalize Understanding, Return Demonstration Education Topics Provided: Continued safety within his room. Time Speech Therapy Time In: 08:30 Speech Therapy Time Out: 09:00 Total Billed Time: 30 Billed Treatment Time 1MUNA BETHANIA ST Jan 22, 2019 14:51
--- NOTE | 2019-01-22 15:13 | NUR ---
Met with patient to complete initial assessment. Patient admitted to ARU 01/21/19, with a diagnosis of Nontraumatic Intracerebral Hemorrhage of Cerebellum; s/p craniotomy right frontal drain; AV fistula embolization, suboccipital decompression, resection of intracranial hematoma (06/2018). Prior to initial hospitalization the patient was living alone in [place], [place]; however, since his CVA, patient has been living with his sister in [place], [place]. He has a bath aide, employed by [employer], that assists him to bathe regularly. Additionally, patient does have childcare administrator support provided by the [place], Mon-Fri, 2 hrs/day. Patient's sister, Yaneth states she assists with the remaining ADLs. Patient does have a walker, wheelchair and power chair. According to Yaneth, patient primarily uses wheelchair. Patient identifies Yaneth as his primary contact. She can be reached at . According to Yaneth, patient's PCP is Dr. Patiño, as well as a physician with [facility]. Patient is also followed by Dr. Pipo Gilman, neurologist with [facility]. Patient confirmed his primary insurance provider is [facility], with supplemental coverage provided by [id number] and [employer]. Patient's pharmacy is [facility] with [facility]. The purpose of weekly Team Conference was discussed, and patient displayed understanding with no concerns. Will continue to follow.
--- NOTE | 2019-01-22 15:32 | NUR ---
RD ASSESSMENT PMHx: HTN, ETOH abuse, COPD, stroke, GERD, chronic diarrhea PT INTERACTION: Pt was awake and pleasant during nutrition assessment. Pt states current appetite is good and has been for the past few weeks. Note pt has been eating very well, per feeding assessments in chart review. Pt states no issues with n/v/c/d at this time, though no BM has been recorded since admit. Pt states recent 50# weight gain since his stroke in 07/03, and states weight before gain was "around 195-200#." Note pt's current weight of 195#, and recent 16# wt gain, per chart review. Upon visual exam, pt appears very well-nourished with BMI of 29.8. ABNORMAL NUTRITION-RELATED LAB VALUES: All labs WNL. Est. kcal needs: 1933-7547 kcal (20-25 kcal/kg) Est. Pro needs: 89-107 g Pro (1.0-1.2 g Pro/kg) PES STATEMENT: No nutrition diagnosis at this time. INTERVENTION: Continue with current diet order of regular diet. MONITOR/EVALUATE: PO Intake; Plan of Care; Weight Status; Hydration Status; Lab Values Laura Ferrell, MS, RD, LD [phone]
[2019-01-22 18:00] VITALS: BP 146/64
[2019-01-22] MEDS: MELATONIN 3 MG TABLET PO PRN (20:04)
--- NOTE | 2019-01-22 20:47 | Individualized Plan of Care ---
Individualized Plan of Care Rehab Nursing IPOC Order Admission Date Jan 21, 2019 at 09:06 Current Orders Orders Admission Arrival Bed Request (01/21/19 09:06) Admission Order(Inpt,Obs,Sdc) (01/21/19 09:42) Vital Signs: Per Unit Policy ( 08,16,00 (01/21/19 09:42) Hide Handler-Inpt Rehab Con (01/21/19 09:42) Rehab Nursing Orders-Ipoc (01/21/19 09:42) Physical Therapy Rehab Orders (01/21/19 09:42) Occupational Therapy Rehab Ord (01/21/19 09:42) Speech Therapy Rehab Orders (01/21/19 09:42) General/Regular (01/21/19 Lunch) Precautions (Aru) (01/21/19 09:42) Weekly Weight WEEK (01/21/19 09:42) Rehab-Intensity Of Therapy (01/21/19 09:42) Initiate Admission Nursing Pro .admission (01/21/19 09:42) Patient Visit (01/21/19 ) Dysphagia Evaluation Std (01/21/19 ) Speech Sound Lang Comp (01/21/19 ) Patient Visit (01/21/19 ) Pt Eval Moderate Complexity (01/21/19 ) Gait Training, Ea 15 Min (01/21/19 ) Metoprolol Succinate (Xl) Tab (Toprol Xl (01/22/19 09:00) (Nf) Amlodipine Besylate (01/22/19 09:00) (Nf) Hydralazine Hcl (01/21/19 14:00) (Nf) Ibuprofen (Advil) (01/21/19 14:00) Amlodipine Tablet (Norvasc Tablet) (01/22/19 09:00) Ibuprofen Tablet (Motrin Tablet) (01/21/19 14:15) Hydralazine Tablet (Apresoline Tablet) (01/21/19 14:30) Patient Visit (01/21/19 ) Functional Activities, Ea 15 (01/21/19 ) Ex Neuromuscular, Ea 15 Min (01/21/19 ) Ambulate 08,12,20 (01/21/19 16:22) Sequential Compression Device Q4H (01/21/19 16:22) Dvt/Vte Risk - Notifiy Physici Q4H (01/21/19 16:22) Cbc With Automated Diff (01/22/19 06:00) Comprehensive Metabolic Panel (01/22/19 06:00) Acetaminophen Tablet (Tylenol Tablet) (01/21/19 21:00) Calcium Carbonate Chew Tablet (Antacid C (01/21/19 21:00) Diphenhydramine Tablet (Benadryl Tablet) (01/21/19 21:00) Alprazolam Tablet (Xanax Tablet) (01/21/19 21:00) Docusate Sodium Capsule (Colace Capsule) (01/21/19 21:00) Hydrocodone/Apap 5/325 Tablet (Lortab 5 (01/21/19 21:00) Loperamide Tablet (Imodium Tablet) (01/21/19 21:00) Melatonin Tablet (Melatonin Tablet) (01/21/19 21:00) Polyethylene Glycol Powder Pkt (Miralax (01/21/19 21:00) Ondansetron Oral Dissolve Tab (Zofran (01/21/19 21:00) Senna S Tablet (Senokot S Tablet) (01/21/19 21:00) Patient Visit (01/22/19 ) Treat. Speech/Lang/Voice (01/22/19 ) Patient Visit (01/22/19 ) Gait Training, Ea 15 Min (01/22/19 ) Functional Activities, Ea 15 (01/22/19 ) Exercise Therap, Ea 15 Min (01/22/19 ) Behavorial Health Consult (01/23/19 08:49) Nursing Communication (Order) (01/23/19 08:57) Patient Visit (01/23/19 ) Wheelchair Mgmt/Propulsn 15min (01/23/19 ) Functional Activities, Ea 15 (01/23/19 ) Exercise Therap, Ea 15 Min (01/23/19 ) Patient Visit (01/23/19 ) Dysphagia Therapy (01/23/19 ) Rehab Nursing Orders: Ongoing Assess. of Cognitive Status, Ongoing Assess. of Function Status, DVT Prophylaxis, Fall Prevention, Patient/Family Support, Safety Management Intensity of Therapy to be met Patient to be seen: Min.3h per day/5 of 7d PT IPOC Problem List: Activity Tolerance, Functional Strength, Safety, Balance, Gait Treatment Plan: Continue Plan of Care Education, Functional Activity Omar, Functional Strength, Group Therapy, Gait, Safety, Therapeutic Exercise, Transfers Treatment Duration: Feb 11, 2019 Frequency: At least 5 of 7 days/Wk (IRF) Estimated Hrs Per Day: 1.5 hours per day OT IPOC Problems: Decreased Activ Tolerance, Decreased Safety Aware, Decreased UE Strength, Dependent Transfers, Impaired Cognition, Impaired Funct Balance, Impaired I ADL's, Impaired Self-Care Skills OT Treatment, Training and Edu: Yes Plan of Care: ADL Retraining, Functional Mobility, Group Exercise/Act as Ind, UE Funct Exercise/Act, UE Neuromus Re-Ed/Coord, Visual/Perceptual Retrain Treatment Duration: Feb 11, 2019 Frequency: At least 5 of 7 days/Wk (IRF) Estimated Hrs Per Day: 1.[address] IPOC Speech Therapy Treatment Plan: Continue Plan of Care Treatment Duration: Feb 01, 2019 Frequency: 5 times per week Estimated Hrs Per Day: .5 hour per day Hide Handler/Case Mgmt Hide Handler/Case Managemen: Discharge Planning Dietitian/Physician Non Invasive Cardiologist Dietitian/Physician Non Invasive Cardiologist to monitor nutritional status and make changes and/or recommendations as needed and work with speech pathology on dietary upgrades as the occur. Physician IPOC Medical Issues being managed closely and that require the 24 hour availability of a physician: Needs close monitoring of BP since HTN emergency caused the hemorrhagic stroke 07/03 Medical Issues: Falls Precautions, Pain Management Brief Synthesis of Preadmission Screen, Post-Admission Evaluation, and Therapy Evaluations: PT will focus on fall prevention OT will help regain independent ADL's Medical Prognosis: Good Anticipated Length of Stay: 10 days HAWK LOZA DO Jan 22, 2019 20:47
[2019-01-23] MEDS: hydrALAZINE (APRESOLINE) 25 MG TAB PO SCH ×4 (01:34→20:14)
[2019-01-23 06:00] VITALS: BP 151/87
--- NOTE | 2019-01-23 06:30 | NUR ---
DURING THE COURSE OF THE NIGHT, REMINDED PATIENT SEVERAL TIMES OF THE IMPORTANCE OF USING CALL LIGHT. WITNESSED PATIENT ATTEMPT TO TRANSFER INDEPENDENTLY. ASSISTED PATIENT TO BED AND ACTIVATED BED ALARM. 0230-BED ALARM SOUNDED AND FOUND PATIENT SITTING ON BED. ATTEMPTED TO EXPLAIN TO PATIENT WHY THE BED ALARM SOUNDED. PATIENT UNABLE TO COMPREHEND THAT BED ALARM SOUNDED BECAUSE HE ATTEMPTED TO GET OUT OF BED WITHOUT ASSISTANCE. PATIENT REFUSES FOR THIS NURSE TO ASSIST HIM IN WIPING WHEN FINISHED WITH BOWEL MOVEMENT EVEN THOUGH THERE WAS VISIBLE BM ON BRIEF. NEW BRIEF APPLIED. PATIENT UNSTEADY AND THIS NURSE HAD TO KEEP PATIENT FROM FALLING MULTIPLE TIMES DURING TRANSFER TO AND FROM BED TO WHEELCHAIR AND FROM WHEELCHAIR TO TOILET. ATTEMPTED TO EXPLAIN TO PATIENT THE GOAL OF TRYING TO KEEP HIM SAFE AND NOT INJURED WHICH WAS QUITE LIKELY SHOULD HE FALL. PATIENT ASSISTED BACK TO BED AND BED ALARM ACTIVATED. 0330-OPENED PATIENT'S DOOR TO CHECK ON HIM. SAW PATIENT'S EYES OPEN AND ASKED HIM IF HE NEEDED ANYTHING AND THAT THIS NURSE WAS SIMPLY CHECKING ON HIM. 0545-PATIENT PUT CALL LIGHT ON AND INFORMED THIS NURSE THAT HE NEEDED TO GO TO THE BATHROOM. PATIENT VERY UPSET AND STATED "DO NOT TOUCH ME!! I WILL FALL BECAUSE YOU ARE HELPING ME". ATTEMPTED TO EXPLAIN TO PATIENT THAT IT WAS ACTUALLY THE OPPOSITE GOAL-THAT I WANTED TO HELP HIM TO AVOID A FALL. PATIENT STATES "IN ALL MY TIME IN THE HOSPITAL, I HAVE NEVER HAD A NURSE WAKE ME UP TO CHECK ON ME!!". ATTEMPTED TO EXPLAIN TO PATIENT THAT I DID NOT INTEND TO WAKE HIM UP AND THAT I JUST WANTED TO MAKE SURE HE WAS SAFE AND RESTING COMFORTABLY. PATIENT CONTINUED TO BE BELLIGERENT.
[2019-01-23] MEDS: meTOproloL SUCCINATE 50 MG (TOPROL XL) TAB PO SCH (08:47)
[2019-01-23] MEDS: amLODIPine 5 MG (NORVASC) TAB PO SCH (08:47)
--- NOTE | 2019-01-23 08:57 | PM&R Progress Note ---
Subjective HPI/CC On Admission Date Seen by Provider: Jan 23, 2019 Time Seen by Provider: 08:30 CC: Debility following intracerebral hemorrhage of cerebellum HPI: This is a 63yoWM clinic patient of [facility] Dr Ptaiño who presents to IRF at the request of his neurologist following a lengthy 7 month course following a HTN source of cerebellar hemorrhage which required surgical intervention after transferred from [facility] then to [facility] then required ICU monitoring and PEG and trach then transferred to [facility] on 07/23/18 and had a lengthy stay and then was admitted to [facility] for slow recovery and ultimately DC home with sister and now ready to participate in therapies in order to regain lost functioning. Patient has a h/o ETOH abuse and tobacco use both of which have ceased now since illness. Subjective/Events-last exam Psych issues are confirmed as acute on chronic Obtain notes from Dr. Hal Lemus Behavioral health consult today Having behaviors last night, very belligerent Will likely DC home on Monday Having balance issues and pt a huge fall risk Checked meds and labs. Reviewed therapy notes. Conferred with RN. Review of Systems General: Fatigue Objective Exam Vital Signs Vital Signs Date Time Temp Pulse Resp B/P (MAP) Pulse Ox O2 Delivery O2 Flow Rate FiO2 01/23/19 18:00 37.0 81 18 135/74 (94) 96 Room Air 01/21/19 20:10 0.00 Capillary Refill : General Appearance: No Apparent Distress, WD/WN, Chronically ill HEENT: PERRL/EOMI, Normal ENT Inspection, Pharynx Normal, Moist Mucous Mem branes Neck: Full Range of Motion, Normal Inspection, Non Tender, Supple Respiratory: Chest Non Tender, Lungs Clear, Normal Breath Sounds, No Accessory Muscle Use, No Respiratory Distress Cardiovascular: Regular Rate, Rhythm, No Edema, No Gallop, No JVD, No Murmur Gastrointestinal: Normal Bowel Sounds, No Organomegaly, No Pulsatile Mass, Non Tender, Soft Back: Normal Inspection, No CVA Tenderness, No Vertebral Tenderness Extremity: Normal Capillary Refill, Normal Inspection, Normal Range of Motion, Non Tender, No Calf Tenderness, No Pedal Edema Neurologic/Psychiatric: Alert, Oriented x3, No Motor/Sensory Deficits, Normal Mood/Affect, Motor Weakness (right sided upper and lower) Skin: Normal Color, Warm/Dry Lymphatic: No Adenopathy Results/Procedures Lab Patient resulted labs reviewed. FIM Transfers Therapy Code Descriptions/Definitions Functional [place] Measure: 0=Not Assessed/NA 4=Minimal Assistance 1=Total Assistance 5=Supervision or Setup 2=Maximal Assistance 6=Modified [place] 3=Moderate Assistance 7=Complete IndependenceSCALE: Activities may be completed with or without assistive devices. 4-Axqjaidysx-nuylddz completes the activity by him/herself with no assistance from a helper. 5-Set-up or Clean-up Assistance-helper sets up or cleans up; patient completes activity. [place] assists only prior to or following the activity. 4-Supervision or Touching Assistance-helper provides verbal cues and/or touching/steadying and/or contact guard assistance as patient completes activity. Assistance may be provided throughout the activity or intermittently. 3-Partial/Moderate Assistance-helper does LESS THAN HALF the effort. [place] lifts, holds or supports trunk or limbs, but provides less than half the effort. 2-Substantial/Maximal Assistance-helper does MORE THAN HALF the effort. [place] lifts or holds trunk or limbs and provides more than half the effort. 7-Yhnkcbkcs-scolgq does ALL the effort. Patient does none of the effort to complete the activity. Or, the assistance of 2 or more helpers is required for the patient to complete the activity. If activity was not attempted, code reason: 7-Patient Refused. 9-Not Applicable-not attempted and the patient did not perform the activity before the current illness, exacerbation or injury. 10-Not Attempted due to Environmental Limitations-(lack of equipment, weather restraints, etc.). 88-Not Attempted due to Medical Conditions or Safety Concerns. Roll Left to Right (QC): 6 Sit to Lying (QC): 6 Sit to Stand (QC): 5 Chair/Yra-vn-Jchug Xfer(QC): 4 Car Transfer (QC): 4 Gait Training Does the Patient Walk?: Yes Gait (FIM): 4 Distance: 200', 400', 200' Walk 10 feet (QC): 4 Walk 50 ft with 2 Turns(QC): 4 Walk 150 ft (QC): 4 Walking 10ft/uneven surface-QC: 4 Gait Persons Needed: 1 Gait Assistive Device: FWW Wheelchair Training Does the Pt Use a Wheelchair?: Yes Wheelchair Distance: 3=150 ft Distance: 500' Wheel 50 ft with 2 turns (QC): 5 Wheel 150 ft (QC): 5 Type of Wheelchair: Manual Stair Training #of Steps: 4 1 Step (curb) (QC): 4 4 Steps (QC): 4 Balance Picking up an Object (QC): 4 (CGA) ADL-Treatment Eating (QC): 10 Oral Hygiene (QC): 5 Shower/Bathe Self (QC): 3 Upper Body Dressing (QC): 4 Lower Body Dressing (QC): 4 On/Off Footwear (QC): 4 Toileting Hygiene (QC): 2 Toilet Transfer (QC): 4 Assessment/Plan Assessment and Plan Assess & Plan/Chief Complaint Assessment: ICH cerebellar 07/03 Right sided weakness Former smoker ETOHism hx Cognitive and mental issues complicating recovery Plan: Monitor BP Home meds PT/OT Monitor bowel function Psych eval (1) Intracranial hemorrhage Status: Chronic (2) Stroke (3) GERD (gastroesophageal reflux disease) Status: Chronic Qualifiers: Esophagitis presence: without esophagitis Qualified Codes: K21.9 - Gastro- esophageal reflux disease without esophagitis (4) Hypertension Status: Chronic Qualifiers: Hypertension type: essential hypertension Qualified Codes: I10 - Essential (primary) hypertension (5) History of alcohol abuse Status: Chronic (6) Former smoker Status: Chronic HAWK LOZA DO Jan 23, 2019 08:57
--- NOTE | 2019-01-23 09:20 | Speech Therapy Daily Note ---
Speech Daily Progress Note Subjective Date Seen by Provider: Jan 23, 2019 Time Seen by Provider: 00:30 Patient was eating his breakfast when I entered his room. Objective Patient utilized compensatory strategies of alternating food:drink and appropriate drink size with 80% given 20% verbal cues. Assessment Assessment Current Status: Good Progress Treatment Plan Continue Plan of Care Speech Short Term Goals Short Term Goals Short Term Goals 1) The patient will complete memory exercises related to his daily needs at 90% or greater given 10% or less in cues. 2) The patient will complete problem solving exercises related to his daily needs at 90% or greater given 10% or less in cues. 3) The patient will complete safety awareness exercises related to his daily needs at 90% or greater given 10% or less in cues. 4) The patient will complete speech intelligibility exercises for improved production at 90% or greater. 5) The patient will tolerate least restrictive diet level without s/s of aspiration at 90% or greater. 6) The patient will utilize compensatory strategies as trained for safe oral intake at 90% or greater given 10% or less in cues. Speech Regional Psychiatric Director Goals Assisted Goals Patient will improve speech and cognitive levels for better communication within his living environment. Patient will maintain adequate nutrition/hydration via safe effective swallow function. Speech-Plan Patient/Family Goals Patient/Family Goals: The patient plans on returning home with his sister upon discharge from rehab. Treatment Plan Speech Therapy Treatment Plan: Continue Plan of Care Patient is progressing toward ST goals. Treatment Duration: Feb 01, 2019 Frequency: 5 times per week Estimated Hrs Per Day: .5 hour per day Rehab Potential: Fair Barriers to Learning: After effects from his recent CVA Pt/Family Agrees to Plan: Yes Safety Risks/Education Teaching Recipient: Patient Teaching Methods: Demonstration, Discussion Response to Teaching: Verbalize Understanding, Return Demonstration Education Topics Provided: Continued safety with oral intake. Time Speech Therapy Time In: 08:30 Speech Therapy Time Out: 09:00 Total Billed Time: 30 Billed Treatment Time 1, LULA Cervantes Jan 23, 2019 09:20
--- NOTE | 2019-01-23 10:00 | Occupational Ther Daily Note ---
OT Current Status-Daily Note Subjective Pt alert, sitting in w/c. Pt upset by being woke up by bed alarm, discussed with pt that bed may have been on most sensitive setting. Nrsg wanted chair alarm placed in pt's w/c for safety, ARITA placed alarm. Pt agrees to therapy. No c/o pain. During therapy, discussions of pt's balance and visual deficits. Mental Status/Objective Patient Orientation: Person, Place, Time, Situation ADL-Treatment Pt agrees to shower. Pt propelled w/c into bathroom and transferred to toilet, vc to lock brakes, with SBA using grabbars. Pt able to manipulate clothing standing using grabbars for balance, SBA. Pt cleansed self sitting on toilet. Pt transferred back to w/c and propelled self to shower and transferred into shower using grabbars and shower bench, SBA for safety. Pt stood holding onto grabbars to step out of clothing, SBA. ARITA educated pt on safety of sitting to doff/don clothing and bathe. SBA to shower using grabbars, hand held shower and shower bench. Pt was able to complete bathing most parts of body in sitting then with SBA and pt holding onto grabbars pt able to complete cleansing karen area/buttocks. After set up, pt able to don upper body clothing by self and SBA in standing to hike pants over hips. Pt sat at sink and completed own grooming. Pt required assist to open cereal bags then was able to open all other packages, banana and milk carton. No LOB noted though pt needs reminders for safety strategies throughout ADLs. After therapy, pt sitting in w/c, alarm activated, call light/phone in reach and sister in room. All needs met in room. Therapy Code Descriptions/Definitions Functional [place] Measure: 0=Not Assessed/NA 4=Minimal Assistance 1=Total Assistance 5=Supervision or Setup 2=Maximal Assistance 6=Modified [place] 3=Moderate Assistance 7=Complete IndependenceSCALE: Activities may be completed with or without assistive devices. 4-Bcgofpquhd-bvhmfbk completes the activity by him/herself with no assistance from a helper. 5-Set-up or Clean-up Assistance-helper sets up or cleans up; patient completes activity. [place] assists only prior to or following the activity. 4-Supervision or Touching Assistance-helper provides verbal cues and/or touching/steadying and/or contact guard assistance as patient completes activity. Assistance may be provided throughout the activity or intermittently. 3-Partial/Moderate Assistance-helper does LESS THAN HALF the effort. [place] lifts, holds or supports trunk or limbs, but provides less than half the effort. 2-Substantial/Maximal Assistance-helper does MORE THAN HALF the effort. [place] lifts or holds trunk or limbs and provides more than half the effort. 7-Iyxklsmrc-cztlvc does ALL the effort. Patient does none of the effort to complete the activity. Or, the assistance of 2 or more helpers is required for the patient to complete the activity. If activity was not attempted, code reason: 7-Patient Refused. 9-Not Applicable-not attempted and the patient did not perform the activity before the current illness, exacerbation or injury. 10-Not Attempted due to Environmental Limitations-(lack of equipment, weather restraints, etc.). 88-Not Attempted due to Medical Conditions or Safety Concerns. Eating (QC): 5 Oral Hygiene (QC): 6 Bathing Location: L Arm, R Arm, L Upper Leg, R Upper Leg, L Lower Leg (including foot), R Lower Leg (including foot), Chest, Abdomen, Buttocks, Perineal Area Shower/Bathe Self (QC): 4 Upper Body Dressing (QC): 5 Lower Body Dressing (QC): 4 (Footwear (QC) 6) Toileting Hygiene (QC): 4 Toilet Transfer (QC): 4 Education OT Patient Education: Safety issues Teaching Recipient: Patient Teaching Methods: Discussion Response to Teaching: Verbalize Understanding, Return Demonstration, Reinforcement Needed OT Short Term Goals Short Term Goals Time Frame: Jan 28, 2019 Eating(FIM): 5 Grooming(FIM): 4 Bathing(FIM): 4 Upper Body Dressing(FIM): 4 Lower Body Dressing(FIM): 5 Toileting(FIM): 4 Transfers (B,C,W/C) (FIM): 4 Toilet/Commode Transfer(FIM): 4 Shower Transfer(FIM): 3 Additional Short Term Goals: 1-Demonstrate ADL Tasks, 2-Verbalize Understanding, 3-ImproveStrength/Omar 1=Demonstrate adherence to instructed precautions during ADL tasks. 2=Patient will verbalize/demonstrate understanding of assistive devices/modifications for ADL. 3=Patient will improve strength/tolerance for activity to enable patient to perform ADL's. OT Nursing Home Goals Cad Design Engineer Goals Time Frame: Feb 11, 2019 Eating (QC): 6 Oral Hygiene (QC): 6 Shower/Bathe Self (QC): 5 Upper Body Dressing (QC): 5 Lower Body Dressing (QC): 5 On/Off Footwear (QC): 5 Toileting Hygiene (QC): 5 Toilet/Commode Transfer (QC): 5 Additional Goals: 1-Demonstrate ADL Tasks, 2-Verbalize Understanding, 3- ImproveStrength/Omar 1=Demonstrate adherence to instructed precautions during ADL tasks. 2=Patient will verbalize/demonstrate understanding of assistive devices/modifications for ADL. 3=Patient will improve strength/tolerance for activity to enable patient to perform ADL's. OT Education/Plan Problem List/Assessment Assessment: Decreased Activ Tolerance, Decreased Safety Aware, Impaired Coordination, Impaired Funct Balance Discharge Recommendations Plan/Recommendations: Continue POC Treatment Plan/Plan of Care Patient would benefit from OT for education, treatment and training to promote independence in ADL's, mobility, safety and/or upper extremity function for ADL's. Plan of Care: ADL Retraining, Functional Mobility, Group Exercise/Act as Ind, UE Funct Exercise/Act, UE Neuromus Re-Ed/Coord, Visual/Perceptual Retrain Treatment Duration: Feb 11, 2019 Frequency: At least 5 of 7 days/Wk (IRF) Estimated Hrs Per Day: 1.5 hours per day Agreement: Yes Rehab Potential: Fair Time/GCodes Start Time: 07:00 Stop Time: 08:15 Total Time Billed (hr/min): 75 Billed Treatment Time 1 visit-ADL 5 (75 min) LUPE COSBY Jan 23, 2019 10:00
--- NOTE | 2019-01-23 10:18 | Physical Therapy Daily Note ---
PT Daily Note-Current Subjective Pt. states he has realized he may never be a safe walking again and may need to be best friends with this wheelchair. Pt. spoke about how his brain may be damaged and he will miss riding motorcycles unless he can find a 3 ibarra. Pt. also states he has double/triple/multiple vision and hopes to see an eye Dr to correct it. Pt. states he spent much of his life "@#$%ed up" during and after serving in [employer]. Pain Location: No Pain Reported Mental Status Patient Orientation: Person, Place, Time, Situation, [place] Transfers SCALE: Activities may be completed with or without assistive devices. 2-Toectaqnzn-ztkewta completes the activity by him/herself with no assistance from a helper. 5-Set-up or Clean-up Assistance-helper sets up or cleans up; patient completes activity. [place] assists only prior to or following the activity. 4-Supervision or Touching Assistance-helper provides verbal cues and/or touching/steadying and/or contact guard assistance as patient completes activity. Assistance may be provided throughout the activity or intermittently. 3-Partial/Moderate Assistance-helper does LESS THAN HALF the effort. [place] lifts, holds or supports trunk or limbs, but provides less than half the effort. 2-Substantial/Maximal Assistance-helper does MORE THAN HALF the effort. [place] lifts or holds trunk or limbs and provides more than half the effort. 9-Fminiqoxn-dahiax does ALL the effort. Patient does none of the effort to complete the activity. Or, the assistance of 2 or more helpers is required for the patient to complete the activity. If activity was not attempted, code reason: 7-Patient Refused. 9-Not Applicable-not attempted and the patient did not perform the activity before the current illness, exacerbation or injury. 10-Not Attempted due to Environmental Limitations-(lack of equipment, weather restraints, etc.). 88-Not Attempted due to Medical Conditions or Safety Concerns. Transfers (B, C, W/C): 5 Roll Left to Right (QC): 6 Sit to Lying (QC): 6 Sit to Stand (QC): 5 Chair/Llk-jr-Vxdag Xfer(QC): 5 pt. ataxic with all movement and TRFs require instruction for safety and technique Weight Bearing Full Weight Bearing Full Weight Bearing Gait Training Gait: 4 Walk 10 feet (QC): 4 Walk 50 ft with 2 Turns(QC): 4 Gait Persons Needed: 1 Gait Assistive Device: FWW ataxic, unsafe movement patterns, requires skilled instruction and assist Wheelchair Training Does the Pt Use a Wheelchair?: Yes Wheelchair Distance: 3=150 ft (300plus) Wheel 50 ft with 2 turns (QC): 5 Wheel 150 ft (QC): 5 Type of Wheelchair: Manual secondary to vision issues and ataxia as well as poor tending to task at times pt. requires skilled guidance and education and planning Exercises Supine Ex: Bridging, Rolling, Glut sets, Heel Slides, Scooting, Straight leg raise, Hip abd/add Supine Reps: 20 NuStep Minutes: 10 NuStep Workload: 4 Treatments alternating U&L extremity seated ther ex Assessment Current Status: Good Progress poor balance in stance and gait, ataxia continues, SPTs require assist to plan and CGA for safety PT Short Term Goals Short Term Goals Time Frame: Jan 28, 2019 Gait Distance Comment: 200' Gait Assistive Device: FWW (SBA) Wheelchair Distance: 500' PT Karate Black Belt Goals Correction Goals PT Karate Black Belt Goals Time Frame: Feb 11, 2019 Sit to Lying (QC): 6 Lying-Sitting on Side/Bed(QC): 6 Sit to Stand (QC): 6 Roll Left to Right (QC): 6 Chair/Nxx-ue-Ynwxc Xfer(QC): 6 Car Transfer (QC): 6 Distance: 300' Walk 10 feet (QC): 6 Walk 10ft-Uneven Surface(QC): 6 Walk 50ft with 2 Turns (QC): 6 Walk 150 ft (QC): 6 Gait Assistive Device: FWW # of Steps: 12 (SBA) 1 Step (curb) (QC): 4 4 Steps (QC): 4 12 Steps (QC): 4 Picking up an Object (QC): 4 (SBA) PT Plan Treatment/Plan Treatment Plan: Continue Plan of Care Treatment Plan: Education, Functional Activity Omar, Functional Strength, Group Therapy, Gait, Safety, Therapeutic Exercise, Transfers Treatment Duration: Feb 11, 2019 Frequency: At least 5 of 7 days/Wk (IRF) Estimated Hrs Per Day: 1.5 hours per day Patient and/or Family Agrees t: Yes Safety Risks/Education Patient Education: Gait Training, Transfer Techniques, Correct Positioning, W/C Management, Disease Process, Safety Issues Teaching Recipient: Patient Teaching Methods: Demonstration, Discussion Response to Teaching: Verbalize Understanding, Return Demonstration, Reinforcement Needed Time/GCodes Time In: 900 Time Out: 1015 Total Billed Treatment Time: 75 Total Billed Treatment 1,WCH25m,FA30m,EX20m CARROL AGRAWAL TUBE SIZER AND CUTTER OPERATOR Jan 23, 2019 10:18
--- NOTE | 2019-01-23 10:20 | NUR ---
Pastoral care visit with pt, lengthy visit with pt sharing much of his life story, somewhat disorganized.
[2019-01-23 18:00] VITALS: BP 135/74
[2019-01-24] MEDS: hydrALAZINE (APRESOLINE) 25 MG TAB PO SCH ×4 (01:46→21:24)
[2019-01-24 05:19] VITALS: BP 134/78
[2019-01-24 08:00] VITALS: BP 159/80
--- NOTE | 2019-01-24 08:17 | PM&R Progress Note ---
Subjective HPI/CC On Admission Date Seen by Provider: Jan 24, 2019 Time Seen by Provider: 08:30 CC: Debility following intracerebral hemorrhage of cerebellum HPI: This is a 63yoWM clinic patient of [facility] Dr Patiño who presents to IRF at the request of his neurologist following a lengthy 7 month course following a HTN source of cerebellar hemorrhage which required surgical intervention after transferred from [facility] then to [facility] then required ICU monitoring and PEG and trach then transferred to [place] on 07/23/18 and had a lengthy stay and then was admitted to [facility] for slow recovery and ultimately DC home with sister and now ready to participate in therapies in order to regain lost functioning. Patient has a h/o ETOH abuse and tobacco use both of which have ceased now since illness. Subjective/Events-last exam Dr. Darren Lemus note will be obtained today and evaluated. Behavioral health consult will be initiated. Checked meds and labs. Pt ready for breakfast. Severe psychiatric history along with alcoholism and vascular cognitive deficit is a concern for recoverability. Will likely DC home on Monday Having balance issues and pt a huge fall risk Checked meds and labs. Reviewed therapy notes. Conferred with RN. Review of Systems General: Fatigue Neurological: Weakness, Numbness, Incoordination, Confusion Objective Exam Vital Signs Vital Signs Date Time Temp Pulse Resp B/P (MAP) Pulse Ox O2 Delivery O2 Flow Rate FiO2 01/24/19 17:56 36.4 80 20 143/85 (104) 94 Room Air 01/21/19 20:10 0.00 Capillary Refill : General Appearance: No Apparent Distress, WD/WN, Chronically ill HEENT: PERRL/EOMI, Normal ENT Inspection, Pharynx Normal, Moist Mucous Membranes Neck: Full Range of Motion, Normal Inspection, Non Tender, Supple Respiratory: Chest Non Tender, Lungs Clear, Normal Breath Sounds, No Accessory Muscle Use, No Respiratory Distress Cardiovascular: Regular Rate, Rhythm, No Edema, No Gallop, No JVD, No Murmur Gastrointestinal: Normal Bowel Sounds, No Organomegaly, No Pulsatile Mass, Non Tender, Soft Back: Normal Inspection, No CVA Tenderness, No Vertebral Tenderness Extremity: Normal Capillary Refill, Normal Inspection, Normal Range of Motion, Non Tender, No Calf Tenderness, No Pedal Edema Neurologic/Psychiatric: Alert, Oriented x3, No Motor/Sensory Deficits, Normal Mood/Affect, Motor Weakness (right sided upper and lower) Skin: Normal Color, Warm/Dry Lymphatic: No Adenopathy Results/Procedures Lab Patient resulted labs reviewed. FIM Transfers Therapy Code Descriptions/Definitions Functional Bucks Measure: 0=Not Assessed/NA 4=Minimal Assistance 1=Total Assistance 5=Supervision or Setup 2=Maximal Assistance 6=Modified Bucks 3=Moderate Assistance 7=Complete IndependenceSCALE: Activities may be completed with or without assistive devices. 7-Rdriccsbcu-mvxsknj completes the activity by him/herself with no assistance from a helper. 5-Set-up or Clean-up Assistance-helper sets up or cleans up; patient completes activity. [place] assists only prior to or following the activity. 4-Supervision or Touching Assistance-helper provides verbal cues and/or touching/steadying and/or contact guard assistance as patient completes activity. Assistance may be provided throughout the activity or intermittently. 3-Partial/Moderate Assistance-helper does LESS THAN HALF the effort. [place] lifts, holds or supports trunk or limbs, but provides less than half the effort. 2-Substantial/Maximal Assistance-helper does MORE THAN HALF the effort. [place] lifts or holds trunk or limbs and provides more than half the effort. 8-Jcppcezqx-ienccg does ALL the effort. Patient does none of the effort to complete the activity. Or, the assistance of 2 or more helpers is required for the patient to complete the activity. If activity was not attempted, code reason: 7-Patient Refused. 9-Not Applicable-not attempted and the patient did not perform the activity before the current illness, exacerbation or injury. 10-Not Attempted due to Environmental Limitations-(lack of equipment, weather restraints, etc.). 88-Not Attempted due to Medical Conditions or Safety Concerns. Transfers (B, C, W/C) (FIM): 5 Roll Left to Right (QC): 6 Sit to Lying (QC): 6 Sit to Stand (QC): 5 Chair/Hzt-dj-Moway Xfer(QC): 5 Car Transfer (QC): 4 Gait Training Does the Patient Walk?: Yes Gait (FIM): 4 Distance: 200', 400', 200' Walk 10 feet (QC): 4 Walk 50 ft with 2 Turns(QC): 4 Walk 150 ft (QC): 4 Walking 10ft/uneven surface-QC: 4 Gait Persons Needed: 1 Gait Assistive Device: FWW Wheelchair Training Does the Pt Use a Wheelchair?: Yes Wheelchair Distance: 3=150 ft (300plus) Distance: 500' Wheel 50 ft with 2 turns (QC): 5 Wheel 150 ft (QC): 5 Type of Wheelchair: Manual Stair Training #of Steps: 4 1 Step (curb) (QC): 4 4 Steps (QC): 4 Balance Picking up an Object (QC): 4 (CGA) ADL-Treatment Eating (QC): 5 Oral Hygiene (QC): 6 Bathing Location: L Arm, R Arm, L Upper Leg, R Upper Leg, L Lower Leg (including foot), R Lower Leg (including foot), Chest, Abdomen, Buttocks, Perineal Area Shower/Bathe Self (QC): 4 Upper Body Dressing (QC): 5 Lower Body Dressing (QC): 4 (Footwear (QC) 6) On/Off Footwear (QC): 4 Toileting Hygiene (QC): 4 Toilet Transfer (QC): 4 Assessment/Plan Assessment and Plan Assess & Plan/Chief Complaint Assessment: ICH cerebellar 07/03 Right sided weakness Former smoker ETOHism hx Cognitive and mental issues complicating recovery Plan: Monitor BP Home meds PT/OT Monitor bowel function Psych eval (1) Intracranial hemorrhage Status: Chronic (2) Stroke (3) GERD (gastroesophageal reflux disease) Status: Chronic Qualifiers: Esophagitis presence: without esophagitis Qualified Codes: K21.9 - Gastro-esophageal reflux disease without esophagitis (4) Hypertension Status: Chronic Qualifiers: Hypertension type: essential hypertension Qualified Codes: I10 - Essential (primary) hypertension (5) History of alcohol abuse Status: Chronic (6) Former smoker Status: Chronic HAWK LOZA DO Jan 24, 2019 08:17
[2019-01-24] MEDS: amLODIPine 5 MG (NORVASC) TAB PO SCH (08:19)
[2019-01-24] MEDS: meTOproloL SUCCINATE 50 MG (TOPROL XL) TAB PO SCH (08:19)
--- NOTE | 2019-01-24 09:00 | NUR ---
QC Clarification Discussed QC with interdisciplinary team: PT, OT and nursing. Admit QC for "12 steps" is 88.
--- NOTE | 2019-01-24 09:00 | NUR ---
QC Clarification Discussed QC with interdisciplinary team: PT, OT, nursing. Admit QC for "12 steps" is 88.
--- NOTE | 2019-01-24 10:50 | Behavioral Health Consult ---
Consult- Consult Date Seen by Provider: Jan 23, 2019 Time Seen by Provider: 13:00 Date: 01-23-19 [facility] CPT Code: 00571 Psychodiagnostic Examination 89505 Interactive Complexity, 2 unit(s) Start Time: 1:00 pm Stop Time: 3:00 pm Chief Complaint: unstable Referral: Maxx Bergeron is a 63-year-old, , male referred by Dr. Lopez for a clinical diagnostic assessment. Information for this evaluation was gathered from self-report, clinical observation, hospital nurse, and medical records. Presenting Problem: According to medical records and nurses report, Maxx has been unstable, and they are concerned he is not safe to go home. 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 The nurse reported that he is a vet, had a stroke at some point in the past, and now lives with his sister who cares for him. It was also reported to staff that he lies and get belligerent. Therapist spoke with his current nurse, Corinne, and she reported he has been struggling to listen and follow direction. She reported they wanted to know if he needed a medication adjustment or possibly needed psychiatric inpatient treatment. Therapist met with Qamar, as he reported he prefers to be called, alone in his h ospital room. He reported he had a stroke in June of this year and has been getting better since then but struggled again in November. He reported in mid- November his speech and movements were more labored than they had been. He reported he thinks he is in the right place now, referring to the hospital, to have his issues addressed. He reported he feels he needs to be somewhere where people deal with stroke victims and feels that will happen at [facility]. Qamar reported he received outpatient physical therapy treatment after his stroke and felt it was helpful and continued to work on his treatment even after it was over. He reported before recently being hospitalized he was able to shower alone and go to the restroom on his own and feels he was able to care for himself well. Qamar reported his mood has been excellent and denied any problems feeling depressed. He reported he became a bit irritable when a nurse woke him up early that morning to check on him but reported otherwise he has been in a very good mood. He reported some problems concentrating and sleeping too much. He reported he will usually sleep about 10 hours a night because his boy needs it. He reported a 71-pound weight loss after his stroke but stated his mood has increased and he has been more active. He denied any thoughts of hurting himself or any anyone else, currently or in the past. He denied any problems with worry and stated that was the silliest thing in the world. Qamar appeared to be in an elevated mood and was very easily distracted. He was asked about symptoms of catia and denied decreased need for sleep or being more talkative and stated, I talk like crazy all the time. He was asked about seeing or hearing things others could not see or hear and denied that being an issue. He reported he thought others would say wonderful things about him because he is a wonderful omar. He later brought up some odd statements in things he said, such as that he may go live in a cabin his family owns in [place] after being discharged from the hospital because he thought that would be a good place for him. He stated there is not running water or electricity, but stated he wanted to go there because he could train more for life. He then stated he was doing his own PT for two hours a day, twice a day minimum to get stronger. He also stated he had enough firewood and food to last until the spring, so he would be fine. Qamar also commented to therapist that he is very cheerful and positive to his doctor when she comes in the room and overly positive to try and get her to tell him to stop acting that way. He stated he thinks people will be mean if they could and will mess with others if they can but he only does it to those he knows can handle it. Observations/Mental Status: Maxx was seen on the rehab unit and was alone. Overall appearance was unkempt. Maxx appeared to be a fair historian. Observed gait and gross motor movements indicated hyperactivity/restlessness and a reliance on mechanical assistance (i.e., walker, wheelchair). Jacob general approach to the evaluation indicated interest. Orientation was intact for person, place, time, and situation. Maxx evidenced fair understanding of the reason for the appointment. Jacob in-session behavior was cooperative. The predominant mood was cheerful with exaggerated affect. Immediate attention and concentration appeared variable. Memory functioning appeared to be appears to be intact, but it would be helpful to talk with a family member to be certain his memory is accurate. Level of intellectual functioning compared to same age peers was estimated to be in the average range. Thought processes were found to be tangential and required some redirection and control. Thought content appeared normal. Psychomotor functioning was within normal limits. Tone of voice was normal and controlled. Expressive speech was marked by fluent speech and language. Eye contact was good. Insight was fair. Overall, style of interacting during the appointment was appropriate and motivated. Current/Previous Mental Health Treatment: Past psychiatric history was denied. History of self or other harm was denied. Current destructive behavior patterns: none indicated or reported. Family psychiatric history was denied. He did report that his father who was not a good human obtained custody of Qamar and his four siblings in the 1950s which was very rare for a man to do, when speaking of his mothers stability. He denied being aware of any mental health diagnosis. Recreational Drug Usage: Substance abuse history was reported he had been using cigarettes and alcohol but did not say for how long. He reported he quit both the day he had his stroke, the last day in May. Family history of alcohol or drug abuse was reported as not assessed. Educational and Vocational Histories: Current vocational status: currently retired. 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 Family and Social Histories: Qamar reported he has been twice and has two children with one ex- and one child with the other. He reported after his stroke his sister moved into his house to help him as needed. Qamar reported eh has many friends and is close with two of his neighbors. Summary of Assessment Information/Prognosis: Maxx is a 63-year-old male. Based on the information provided by patient, medical records and due to not knowing his prior level of functioning, no psychological diagnosis can be made at this time. He appeared to be cheerful upon consultation and denied any current or past symptoms of depression, anxiety, schizophrenia, or bipolar disorder. He also denied any family mental health history. He did make some odd statements during the assessment, but it is unknown if the statements he made were factual. He has also denied being a harm to himself or others, thus indicating immediate psychiatric hospitalizing is not recommended. If his mental health appears to deteriorate, an evaluation by [facility] would be beneficial. Strengths/Weaknesses: Strengths/Resources: confident Liabilities/Barriers: problems with insight, limited support network, and health problems Initial Treatment Plan/Recommendations: The recommendations at this time include the following: review the results from the psychological evaluation done by [facility]; contact his sister to inquire about any mental health history and to confirm what Qamar has reported; determine level of functioning due to any physic al limitations; if his continue discuss the possibility of going to an inpatient facility; but he does not appear to be a danger to himself or others based on his psychological functioning. EVGENY CONNOLLY [facility] Jan 24, 2019 10:50
--- NOTE | 2019-01-24 10:53 | NUR ---
RN notified this worker that patient's son, Kurt visited last night and since his visit, patient is stating he intends to return home to his ex-'s house. RN also reports the patient states his sister is irresponsible with his finances. Will follow-up with patient.
--- NOTE | 2019-01-24 11:37 | Speech Therapy Daily Note ---
Speech Daily Progress Note Subjective Date Seen by Provider: Jan 24, 2019 Time Seen by Provider: 00:30 Patient was waiting on his breakfast order when I entered his room. Objective Patient utilized compensatory strategies as trained with 80% accuracy given 10% verbal cues. Assessment Assessment Current Status: Good Progress Speech Short Term Goals Short Term Goals Short Term Goals 1) The patient will complete memory exercises related to his daily needs at 90% or greater given 10% or less in cues. 2) The patient will complete problem solving exercises related to his daily needs at 90% or greater given 10% or less in cues. 3) The patient will complete safety awareness exercises related to his daily needs at 90% or greater given 10% or less in cues. 4) The patient will complete speech intelligibility exercises for improved production at 90% or greater. 5) The patient will tolerate least restrictive diet level without s/s of aspiration at 90% or greater. 6) The patient will utilize compensatory strategies as trained for safe oral intake at 90% or greater given 10% or less in cues. Speech Insole Reinforcer Goals Usp Goals Patient will improve speech and cognitive levels for better communication within his living environment. Patient will maintain adequate nutrition/hydration via safe effective swallow function. Speech-Plan Patient/Family Goals Patient/Family Goals: Patient plans on returning to his home post rehab. Treatment Plan Speech Therapy Treatment Plan: Continue Plan of Care Patient is progressing well with therapy. Treatment Duration: Feb 01, 2019 Frequency: 5 times per week Estimated Hrs Per Day: .5 hour per day Rehab Potential: Fair Barriers to Learning: Patient has residual affects of his CVA. Pt/Family Agrees to Plan: Yes Safety Risks/Education Education Topics Provided: Continued safety within his room and with oral intake. Time Speech Therapy Time In: 08:30 Speech Therapy Time Out: 09:00 Total Billed Time: 30 Billed Treatment Time 1, LULA Cervantes Jan 24, 2019 11:37
--- NOTE | 2019-01-24 12:05 | NUR ---
Reviewed weekly Care Team Conference with patient's sister/DPOA, Yaneth. She was agreeable to information discussed and to a discharge date of 01/30/19. Yaneth states she feels this rehab stay has been beneficial for her brother. She continues to feel as if the patient would benefit from rehabilitation that primarily addresses neurological functioning; she states hopes to achieve this in the near future. When asked, Yaneth states the patient has a "good" relationship with both of his ex-wives, but that the discharge plan is to return home with her as it is a safe and structured environment. Yaneth is aware of patient's visit from his son, Kurt and requests that visits are held on the unit and not in patient's room. This is due to a history of the son supplying patient was an illegal substance. RN notified. Will continue to follow.
--- NOTE | 2019-01-24 12:17 | Physical Therapy Daily Note ---
PT Daily Note-Current Subjective Pt sitting in W/C in room upon arrival. Pt agrees to PT. Pain Location: No Pain Reported Mental Status Patient Orientation: Person, Confused, Place Transfers SCALE: Activities may be completed with or without assistive devices. 5-Xzikmmwihr-dwlhvkz completes the activity by him/herself with no assistance from a helper. 5-Set-up or Clean-up Assistance-helper sets up or cleans up; patient completes activity. [place] assists only prior to or following the activity. 4-Supervision or Touching Assistance-helper provides verbal cues and/or touching/steadying and/or contact guard assistance as patient completes activity. Assistance may be provided throughout the activity or intermittently. 3-Partial/Moderate Assistance-helper does LESS THAN HALF the effort. [place] lifts, holds or supports trunk or limbs, but provides less than half the effort. 2-Substantial/Maximal Assistance-helper does MORE THAN HALF the effort. [place] lifts or holds trunk or limbs and provides more than half the effort. 5-Emaubjzly-swrbyk does ALL the effort. Patient does none of the effort to complete the activity. Or, the assistance of 2 or more helpers is required for the patient to complete the activity. If activity was not attempted, code reason: 7-Patient Refused. 9-Not Applicable-not attempted and the patient did not perform the activity before the current illness, exacerbation or injury. 10-Not Attempted due to Environmental Limitations-(lack of equipment, weather restraints, etc.). 88-Not Attempted due to Medical Conditions or Safety Concerns. Sit to Stand (QC): 5 Weight Bearing Full Weight Bearing Full Weight Bearing Wheelchair Training Does the Pt Use a Wheelchair?: Yes Wheelchair Distance: 3=150 ft Distance: 150' x2 Wheel 50 ft with 2 turns (QC): 5 Wheel 150 ft (QC): 5 Type of Wheelchair: Manual Exercises Standing: Hamstring curls, Heel/toe raises, 3 way Ex=Flex, Abd, Ext, Marching, Mini squats, Weight shifts Standing Reps: 20 Treatments Pt propels W/C in hallway to Therapy Gym. Pt uses NuStep for 15m at WL 6. Pt then completes Standing EX at //bars with a couple short RB. Pt then returns to W/C and propels back to room at end of tx. Pt has all needs met, call light in hand. Assessment Current Status: Good Progress Pt continues to display social awareness deficits. PT Short Term Goals Short Term Goals Time Frame: Jan 28, 2019 Gait Distance Comment: 200' Gait Assistive Device: FWW (SBA) Wheelchair Distance: 500' PT Collar Shaper Operator Goals Long-Term Goals PT Long-Term Goals Time Frame: Feb 11, 2019 Sit to Lying (QC): 6 Lying-Sitting on Side/Bed(QC): 6 Sit to Stand (QC): 6 Roll Left to Right (QC): 6 Chair/Zrp-js-Iaaku Xfer(QC): 6 Car Transfer (QC): 6 Distance: 300' Walk 10 feet (QC): 6 Walk 10ft-Uneven Surface(QC): 6 Walk 50ft with 2 Turns (QC): 6 Walk 150 ft (QC): 6 Gait Assistive Device: FWW # of Steps: 12 (SBA) 1 Step (curb) (QC): 4 4 Steps (QC): 4 12 Steps (QC): 4 Picking up an Object (QC): 4 (SBA) PT Plan Problem List Problem List: Activity Tolerance, Functional Strength, Safety, Balance Treatment/Plan Treatment Plan: Continue Plan of Care Treatment Plan: Education, Functional Activity Omar, Functional Strength, Group Therapy, Gait, Safety, Therapeutic Exercise, Transfers Treatment Duration: Feb 11, 2019 Frequency: At least 5 of 7 days/Wk (IRF) Estimated Hrs Per Day: 1.5 hours per day Patient and/or Family Agrees t: Yes Safety Risks/Education Patient Education: Transfer Techniques, Correct Positioning, Safety Issues Teaching Recipient: Patient Teaching Methods: Discussion Response to Teaching: Reinforcement Needed Time/GCodes Time In: 1030 Time Out: 1115 Total Billed Treatment Time: 45 Total Billed Treatment 1, WCH (15m), EX x2 (30m) DERRICK CORONA CLINICAL INTERVIEWER Jan 24, 2019 12:17
--- NOTE | 2019-01-24 13:33 | Physical Therapy Daily Note ---
PT Daily Note-Current Subjective Pt sitting in W/C in room upon arrival. Pt agrees to PT. Pain Location: No Pain Reported Mental Status Patient Orientation: Person, Confused, Place Transfers SCALE: Activities may be completed with or without assistive devices. 5-Oumtftrkpf-jigfkgt completes the activity by him/herself with no assistance from a helper. 5-Set-up or Clean-up Assistance-helper sets up or cleans up; patient completes activity. [place] assists only prior to or following the activity. 4-Supervision or Touching Assistance-helper provides verbal cues and/or touching/steadying and/or contact guard assistance as patient completes activity. Assistance may be provided throughout the activity or intermittently. 3-Partial/Moderate Assistance-helper does LESS THAN HALF the effort. [place] lifts, holds or supports trunk or limbs, but provides less than half the effort. 2-Substantial/Maximal Assistance-helper does MORE THAN HALF the effort. [place] lifts or holds trunk or limbs and provides more than half the effort. 6-Wvidixmos-czsmzq does ALL the effort. Patient does none of the effort to complete the activity. Or, the assistance of 2 or more helpers is required for the patient to complete the activity. If activity was not attempted, code reason: 7-Patient Refused. 9-Not Applicable-not attempted and the patient did not perform the activity before the current illness, exacerbation or injury. 10-Not Attempted due to Environmental Limitations-(lack of equipment, weather restraints, etc.). 88-Not Attempted due to Medical Conditions or Safety Concerns. Sit to Stand (QC): 5 Weight Bearing Full Weight Bearing Full Weight Bearing Gait Training Does the Patient Walk?: Yes Gait: 4 Distance: 150' x2 Walk 10 feet (QC): 4 Walk 50 ft with 2 Turns(QC): 4 Walk 150 ft (QC): 4 Gait Persons Needed: 1 Gait Assistive Device: FWW Wheelchair Training Does the Pt Use a Wheelchair?: Yes Wheelchair Distance: 8=929-08 ft Distance: 50' Wheel 50 ft with 2 turns (QC): 5 Type of Wheelchair: Manual Exercises Seated Therapy Exercises: Ankle pumps, Long arc quads, Hip flexion, Kicking activity, Hamstring Curls Seated Reps: 20 Treatments Pt propelled W/C to hallway then ambulated using FWW with REPORTS ANALYSIS MANAGER at [facility]. Pt takes RB then completes Seated Ex before ambulating again. Pt returns to W/C to rest in room with all needs met, call light in hand. Assessment Current Status: Good Progress Pt ambulates better when giving something to focus on while walking (like line on floor), otherwise drifts to L side. PT Short Term Goals Short Term Goals Time Frame: Jan 28, 2019 Gait Distance Comment: 200' Gait Assistive Device: FWW (SBA) Wheelchair Distance: 500' PT Contracts Representative Goals Detention Goals PT Detention Goals Time Frame: Feb 11, 2019 Sit to Lying (QC): 6 Lying-Sitting on Side/Bed(QC): 6 Sit to Stand (QC): 6 Roll Left to Right (QC): 6 Chair/Qoa-fq-Wxogl Xfer(QC): 6 Car Transfer (QC): 6 Distance: 300' Walk 10 feet (QC): 6 Walk 10ft-Uneven Surface(QC): 6 Walk 50ft with 2 Turns (QC): 6 Walk 150 ft (QC): 6 Gait Assistive Device: FWW # of Steps: 12 (SBA) 1 Step (curb) (QC): 4 4 Steps (QC): 4 12 Steps (QC): 4 Picking up an Object (QC): 4 (SBA) PT Plan Problem List Problem List: Activity Tolerance, Safety, Balance, Gait Treatment/Plan Treatment Plan: Continue Plan of Care Treatment Plan: Education, Functional Activity Omar, Functional Strength, Group Therapy, Gait, Safety, Therapeutic Exercise, Transfers Treatment Duration: Feb 11, 2019 Frequency: At least 5 of 7 days/Wk (IRF) Estimated Hrs Per Day: 1.5 hours per day Patient and/or Family Agrees t: Yes Safety Risks/Education Patient Education: Gait Training, Transfer Techniques, Correct Positioning, Safety Issues Teaching Recipient: Patient Teaching Methods: Discussion Response to Teaching: Verbalize Understanding Time/GCodes Time In: 1300 Time Out: 1330 Total Billed Treatment Time: 30 Total Billed Treatment 1, GT (20m) & EX (10m) DERRICK CORONA REPORTS ANALYSIS MANAGER Jan 24, 2019 13:33
--- NOTE | 2019-01-24 13:53 | Occupational Ther Daily Note ---
OT Current Status-Daily Note Subjective Pt alert, sitting in w/c. Pt agrees to therapy. No c/o pain. Mental Status/Objective Patient Orientation: Person, Place, Time, Situation ADL-Treatment Pt declines shower today. Requests completing sponge bath and changing lower body clothing. Pt able to complete upper body sponge bath without assistance then pt attempted to cleanse buttocks, inefficient with effort and assist needed to thoroughly cleanse. Pt able to don/doff lower body clothing with SBA. Completed grooming sitting at sink by self. Pt takes increased time to complete all tasks. Therapy Code Descriptions/Definitions Functional [place] Measure: 0=Not Assessed/NA 4=Minimal Assistance 1=Total Assistance 5=Supervision or Setup 2=Maximal Assistance 6=Modified [place] 3=Moderate Assistance 7=Complete IndependenceSCALE: Activities may be completed with or without assistive devices. 3-Dqlysorapn-wmqpfyl completes the activity by him/herself with no assistance from a helper. 5-Set-up or Clean-up Assistance-helper sets up or cleans up; patient completes activity. [place] assists only prior to or following the activity. 4-Supervision or Touching Assistance-helper provides verbal cues and/or touching/steadying and/or contact guard assistance as patient completes activity. Assistance may be provided throughout the activity or intermittently. 3-Partial/Moderate Assistance-helper does LESS THAN HALF the effort. [place] lifts, holds or supports trunk or limbs, but provides less than half the effort. 2-Substantial/Maximal Assistance-helper does MORE THAN HALF the effort. [place] lifts or holds trunk or limbs and provides more than half the effort. 6-Lmxmjnuld-jzvolx does ALL the effort. Patient does none of the effort to complete the activity. Or, the assistance of 2 or more helpers is required for the patient to complete the activity. If activity was not attempted, code reason: 7-Patient Refused. 9-Not Applicable-not attempted and the patient did not perform the activity before the current illness, exacerbation or injury. 10-Not Attempted due to Environmental Limitations-(lack of equipment, weather restraints, etc.). 88-Not Attempted due to Medical Conditions or Safety Concerns. Oral Hygiene (QC): 6 Lower Body Dressing (QC): 4 Other Treatment Pt propelled w/c to therapy gym. Completed arm bike for 15 min at 20 [place] resistance with 1 break to increase strengthening and activity tolerance. Pt then completed resistive pegs 30 each hand. Pt then propelled w/c back to room. After therapy, pt sitting in w/c with call light/phone in reach. Safety measures in place. OT Short Term Goals Short Term Goals Time Frame: Jan 28, 2019 Eating(FIM): 5 Grooming(FIM): 4 Bathing(FIM): 4 Upper Body Dressing(FIM): 4 Lower Body Dressing(FIM): 5 Toileting(FIM): 4 Transfers (B,C,W/C) (FIM): 4 Toilet/Commode Transfer(FIM): 4 Shower Transfer(FIM): 3 Additional Short Term Goals: 1-Demonstrate ADL Tasks, 2-Verbalize Understanding, 3-ImproveStrength/Omar 1=Demonstrate adherence to instructed precautions during ADL tasks. 2=Patient will verbalize/demonstrate understanding of assistive devices/modifications for ADL. 3=Patient will improve strength/tolerance for activity to enable patient to perform ADL's. OT Longterm Goals Longterm Goals Time Frame: Feb 11, 2019 Eating (QC): 6 Oral Hygiene (QC): 6 Shower/Bathe Self (QC): 5 Upper Body Dressing (QC): 5 Lower Body Dressing (QC): 5 On/Off Footwear (QC): 5 Toileting Hygiene (QC): 5 Toilet/Commode Transfer (QC): 5 Additional Goals: 1-Demonstrate ADL Tasks, 2-Verbalize Understanding, 3- ImproveStrength/Omar 1=Demonstrate adherence to instructed precautions during ADL tasks. 2=Patient will verbalize/demonstrate understanding of assistive devices/modifications for ADL. 3=Patient will improve strength/tolerance for activity to enable patient to perform ADL's. OT Education/Plan Problem List/Assessment Assessment: Decreased Activ Tolerance, Decreased UE Strength, Impaired Coordination, Impaired Funct Balance, Visual-Perceptual Deficit Discharge Recommendations Plan/Recommendations: Continue POC Treatment Plan/Plan of Care Patient would benefit from OT for education, treatment and training to promote independence in ADL's, mobility, safety and/or upper extremity function for ADL's. Plan of Care: ADL Retraining, Functional Mobility, Group Exercise/Act as Ind, UE Funct Exercise/Act, UE Neuromus Re-Ed/Coord, Visual/Perceptual Retrain Treatment Duration: Feb 11, 2019 Frequency: At least 5 of 7 days/Wk (IRF) Estimated Hrs Per Day: 1.5 hours per day Agreement: Yes Rehab Potential: Fair Time/GCodes Start Time: 07:00 Stop Time: 08:15 Total Time Billed (hr/min): 75 Billed Treatment Time 1 visit-ADL 2 (35 min) EX 3 (40 min) LUPE COSBY Jan 24, 2019 13:53
--- NOTE | 2019-01-24 14:23 | NUR ---
Follow up visit: pt shared that he had previous visit with a meal miller. He engaged in sharing about regrets of the past and how his life changed following a serious stroke in late May this year. He said he was in the hospital approx 2 months, and since that time discontinued drinking alcohol. The pt described a history of drugs and alcohol and is now seeking to do something with his life that is beneficial to others. 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 He said he does not know how far this will go, but it gives him something to hope for. He reflected that his stroke was devastating, but in another way was "the best thing that probably could have happened to me." His shared he is twice , has two sons, is estranged from his youngest and describes a strong starr with the elder child. He welcomed me to return.
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
[2019-01-24 17:56] VITALS: BP 143/85
[2019-01-25] MEDS: hydrALAZINE (APRESOLINE) 25 MG TAB PO SCH ×4 (03:04→20:22)
--- NOTE | 2019-01-25 06:40 | NUR ---
PT B/P 164/107, DR LOZA NOTIFIED, NO NEW ORDERS AT THIS TIME
[2019-01-25 06:50] VITALS: BP 164/107
--- NOTE | 2019-01-25 06:53 | NUR ---
THIS NURSE OBTAINED PT B/P PRIOR TO ADMINISTERING SCHEDULED HYDRALAZINE THROUGHOUT THE NIGHT. WHEN THIS NURSE OBTAINED MORNING VITAL SIGNS ON PATIENT, PT WAS ANGRY AND STATED "NO ONE HAS EVER WOKEN ME UP SO MANY TIMES AT NIGHT TO CHECK MY BLOOD PRESSURE." THIS NURSE EXPLAINED TO PT THAT IT IS IMPORTANT TO MONITOR HIS B/P WHEN GIVING B/PM MEDICATION.
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
[2019-01-25] MEDS: meTOproloL SUCCINATE 50 MG (TOPROL XL) TAB PO SCH (08:16)
[2019-01-25] MEDS: amLODIPine 5 MG (NORVASC) TAB PO SCH (08:16)
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
[2019-01-25] MEDS ORDERED: HYDROCORTISONE 2.5% CREAM (ANUSOL-HC) 30 GM TOP PRN (10:30)
--- NOTE | 2019-01-25 10:50 | Speech Therapy Daily Note ---
Speech Daily Progress Note Subjective Date Seen by Provider: Jan 25, 2019 Time Seen by Provider: 00:30 Patient was waiting on his breakfast when I arrived for therapy. Objective Patient utilized compensatory strategies with oral intake at 80% with decreased verbal cuing. Speech Short Term Goals Short Term Goals Short Term Goals 1) The patient will complete memory exercises related to his daily needs at 90% or greater given 10% or less in cues. 2) The patient will complete problem solving exercises related to his daily needs at 90% or greater given 10% or less in cues. 3) The patient will complete safety awareness exercises related to his daily needs at 90% or greater given 10% or less in cues. 4) The patient will complete speech intelligibility exercises for improved production at 90% or greater. 5) The patient will tolerate least restrictive diet level without s/s of aspiration at 90% or greater. 6) The patient will utilize compensatory strategies as trained for safe oral intake at 90% or greater given 10% or less in cues. Speech Log Clerk Goals Snf Goals Patient will improve speech and cognitive levels for better communication within his living environment. Patient will maintain adequate nutrition/hydration via safe effective swallow function. Speech-Plan Patient/Family Goals Patient/Family Goals: Patient plans on returning home with family upon discharge from rehab. Treatment Plan Speech Therapy Treatment Plan: Continue Plan of Care Patient is progressing with safe oral intake. 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 Pt/Family Agrees to Plan: Yes Safety Risks/Education Teaching Recipient: Patient Teaching Methods: Discussion Response to Teaching: Verbalize Understanding Education Topics Provided: Continued safety with oral intake. Time Speech Therapy Time In: 08:15 Speech Therapy Time Out: 08:45 Total Billed Time: 30 Billed Treatment Time 1, LULA Cervantes Jan 25, 2019 10:50
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
--- NOTE | 2019-01-25 18:10 | NUR ---
Patient's sister, Yaneth here to see patient. This nurse present for visit. Visit is cordial no complaints. Hugs at the end of visit.
[2019-01-25 18:15] VITALS: BP 136/87
[2019-01-25 20:21] VITALS: BP 134/87
[2019-01-26] MEDS: hydrALAZINE (APRESOLINE) 25 MG TAB PO SCH ×4 (03:07→20:37)
[2019-01-26 03:09] VITALS: BP 137/86
--- NOTE | 2019-01-26 09:04 | Physical Therapy Daily Note ---
PT Daily Note-Current Subjective Pt. states he is feeling 5 times stronger than he had previously Pain Location: No Pain Reported Mental Status Patient Orientation: Person, Place, Time, Situation Transfers SCALE: Activities may be completed with or without assistive devices. 1-Uqcwvfnynx-mfdmmis completes the activity by him/herself with no assistance from a helper. 5-Set-up or Clean-up Assistance-helper sets up or cleans up; patient completes activity. [place] assists only prior to or following the activity. 4-Supervision or Touching Assistance-helper provides verbal cues and/or touching/steadying and/or contact guard assistance as patient completes activity. Assistance may be provided throughout the activity or intermittently. 3-Partial/Moderate Assistance-helper does LESS THAN HALF the effort. [place] lifts, holds or supports trunk or limbs, but provides less than half the effort. 2-Substantial/Maximal Assistance-helper does MORE THAN HALF the effort. [place] lifts or holds trunk or limbs and provides more than half the effort. 3-Sfdxxiexo-uzmlih does ALL the effort. Patient does none of the effort to complete the activity. Or, the assistance of 2 or more helpers is required for the patient to complete the activity. If activity was not attempted, code reason: 7-Patient Refused. 9-Not Applicable-not attempted and the patient did not perform the activity before the current illness, exacerbation or injury. 10-Not Attempted due to Environmental Limitations-(lack of equipment, weather restraints, etc.). 88-Not Attempted due to Medical Conditions or Safety Concerns. Transfers (B, C, W/C): 5 Roll Left to Right (QC): 5 Sit to Lying (QC): 5 Sit to Stand (QC): 5 Chair/Hqv-wo-Zvayk Xfer(QC): 5 Weight Bearing Full Weight Bearing Full Weight Bearing Gait Training Does the Patient Walk?: Yes Gait: 4 Walk 10 feet (QC): 4 Walk 50 ft with 2 Turns(QC): 4 Gait Persons Needed: 1 Gait Assistive Device: Parallel Bars ataxic Wheelchair Training Does the Pt Use a Wheelchair?: Yes Wheelchair Distance: 3=150 ft Type of Wheelchair: Manual needs reminders to lock w/c before TRFs etc for safety Treatments seated U&L bilat alternating exercises x 10min, seated leg presses Assessment Current Status: Good Progress PT Short Term Goals Short Term Goals Time Frame: Jan 28, 2019 Gait Distance Comment: 200' Gait Assistive Device: FWW (SBA) Wheelchair Distance: 50' PT Client Support Administrator Goals Client Support Administrator Goals PT Client Support Administrator Goals Time Frame: Feb 11, 2019 Sit to Lying (QC): 6 Lying-Sitting on Side/Bed(QC): 6 Sit to Stand (QC): 6 Roll Left to Right (QC): 6 Chair/Jlt-mw-Vhvsu Xfer(QC): 6 Car Transfer (QC): 6 Distance: 300' Walk 10 feet (QC): 6 Walk 10ft-Uneven Surface(QC): 6 Walk 50ft with 2 Turns (QC): 6 Walk 150 ft (QC): 6 Gait Assistive Device: FWW # of Steps: 12 (SBA) 1 Step (curb) (QC): 4 4 Steps (QC): 4 12 Steps (QC): 4 Picking up an Object (QC): 4 (SBA) PT Plan Treatment/Plan Treatment Plan: Continue Plan of Care Treatment Plan: Education, Functional Activity Omar, Functional Strength, Group Therapy, Gait, Safety, Therapeutic Exercise, Transfers Treatment Duration: Feb 11, 2019 Frequency: At least 5 of 7 days/Wk (IRF) Estimated Hrs Per Day: 1.5 hours per day Patient and/or Family Agrees t: Yes Safety Risks/Education Patient Education: Gait Training, Transfer Techniques, Correct Positioning, W/C Management, Disease Process, Safety Issues Teaching Recipient: Patient Teaching Methods: Demonstration, Discussion Response to Teaching: Verbalize Understanding, Return Demonstration, John nforcement Needed Time/GCodes Time In: 805 Time Out: 830 Total Billed Treatment Time: 25 Total Billed Treatment 1,EX10m,GT15m CARROL AGRAWAL BUTTONHOLE MAKER Jan 26, 2019 09:04
[2019-01-26 09:20] VITALS: BP 139/78
[2019-01-26] MEDS: amLODIPine 5 MG (NORVASC) TAB PO SCH (09:26)
[2019-01-26] MEDS: meTOproloL SUCCINATE 50 MG (TOPROL XL) TAB PO SCH (09:26)
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
[2019-01-26 13:42] VITALS: BP 140/84
[2019-01-26 18:04] VITALS: BP 131/75
[2019-01-26] MEDS: ALPRAZolam 0.25 MG (XANAX) TAB PO PRN (20:38)
[2019-01-26] MEDS: MELATONIN 3 MG TABLET PO PRN (22:00)
[2019-01-27] MEDS: hydrALAZINE (APRESOLINE) 25 MG TAB PO SCH ×4 (03:17→20:24)
[2019-01-27 06:09] VITALS: BP 155/92
[2019-01-27] MEDS: amLODIPine 5 MG (NORVASC) TAB PO SCH (08:15)
[2019-01-27] MEDS: meTOproloL SUCCINATE 50 MG (TOPROL XL) TAB PO SCH (08:16)
[2019-01-27 08:20] VITALS: BP 136/84
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
[2019-01-27 14:38] VITALS: BP 137/81
[2019-01-27 17:25] VITALS: BP 145/92
[2019-01-27 21:00] VITALS: BP 117/70
[2019-01-28] MEDS: hydrALAZINE (APRESOLINE) 25 MG TAB PO SCH ×4 (02:24→21:05)
--- NOTE | 2019-01-28 04:37 | NUR ---
PT USING CALL LIGHT APPROPRIATELY. PT CALLED THIS RN TO GO TO THE BATHROOM. THIS RN OFFERED TO HELP PT STAND UP BUT PT REFUSED TO LET THIS RN TOUCH HIM OR HIS WHEELCHAIR. PT UNSTEADY ON FEET BUT BECAME SLIGHTLY BELLIGERENT WHEN THIS RN REACHED TO HELP STEADY HIM. NO INCIDENTS OCCURRED. PT SAFELY IN WHEELCHAIR, TO BATHROOM, AND SAFELY ONTO TOILET AT THIS TIME.
[2019-01-28 05:11] LABS: BASOPHILS # (AUTO) 0.1 10^3/uL (0.0-0.1); BASOPHILS % (AUTO) 1 % (0-10); EOSINOPHILS # (AUTO) 0.2 10^3/uL (0.0-0.3); EOSINOPHILS % (AUTO) 3 % (0-10); HEMATOCRIT 44 % (40-54); HEMOGLOBIN 14.5 G/DL (13.3-17.7); LYMPHOCYTES # (AUTO) 1.5 X 10^3 (1.0-4.0); LYMPHOCYTES % (AUTO) 24 % (12-44); MEAN CORPUSCULAR HEMOGLOBIN 28 PG (25-34); MEAN CORPUSCULAR HGB CONC 33 G/DL (32-36); MEAN CORPUSCULAR VOLUME 86 FL (80-99); MEAN PLATELET VOLUME 9.3 FL (7.4-10.4); MONOCYTES # (AUTO) 0.9 X 10^3 (0.0-1.0); MONOCYTES % (AUTO) 14 % (0-12); NEUTROPHILS # (AUTO) 3.8 X 10^3 (1.8-7.8); NEUTROPHILS % (AUTO) 59 % (42-75); PLATELET COUNT 309 10^3/uL (130-400); RED CELL DISTRIBUTION WIDTH 14.9 % (10.0-14.5); WHITE BLOOD COUNT 6.4 10^3/uL (4.3-11.0)
[2019-01-28 05:31] LABS: ALANINE AMINOTRANSFERASE 13 U/L (0-55); ALBUMIN 3.7 GM/DL (3.2-4.5); ALKALINE PHOSPHATASE 63 U/L (40-136); BILIRUBIN,TOTAL 0.3 MG/DL (0.1-1.0); BUN/CREATININE RATIO 20; CALCIUM 9.1 MG/DL (8.5-10.1); CARBON DIOXIDE 26 MMOL/L (21-32); CHLORIDE 104 MMOL/L (98-107); CREATININE SERUM 0.71 MG/DL (0.60-1.30); GFR ESTIMATED > 60; GLUCOSE 99 MG/DL (70-105); POTASSIUM 4.3 MMOL/L (3.6-5.0); SODIUM 141 MMOL/L (135-145); TOTAL PROTEIN 6.4 GM/DL (6.4-8.2)
[2019-01-28 05:58] VITALS: BP 126/70
[2019-01-28] MEDS: meTOproloL SUCCINATE 50 MG (TOPROL XL) TAB PO SCH (09:30)
[2019-01-28] MEDS: amLODIPine 5 MG (NORVASC) TAB PO SCH (09:30)
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
--- NOTE | 2019-01-28 10:00 | NUR ---
Patient called this travel trailer components assembler and requested I visit with him at 10:00am. I visited with pt for approximately 40 minutes during which time he shared his concerns about his discharge and the options of residing with his sister or in a facility. I listened to his concerns and assured him that the staff and physicians will listen to him and his safety and well being are paramount. Pt seemed calmer after visit. I assured him [facility] would be staying in touch as he continues rehabbing.
--- NOTE | 2019-01-28 10:50 | Progress Note ---
RADHA WRIGHT MED STUDENT 01/28/19 1050: Progress Note CC: Cerebellar hemorrhage due to HTN Barriers to discharge/return home: * Mr. Bergeron reports he is prepared to go home, however he reports that while he can stand on his own, he cannot walk. He uses a wheelchair well, but reports his wheelchair may not fit in his house. * May be discharged to live with his sister, questionable support available from family otherwise * PT reports he is able to walk with assistance, has an ataxic gait * Underwent psych evaluation due to odd statements and behavior, questionable accuracy of history. No psychiatric diagnosis made, evaluation does report problems with insight. * History of ETOH and tobacco abuse, has ceased use of both since cerebellar hemorrhage CARLINE LOZA DO 01/29/198: Supervisory-Addendum Brief Verification & Attestation Participated in pt care: history, MDM, physical Personally performed: exam, history, MDM, supervision of care Care discussed with: Medical Student Procedures: n/a Results interpretation: Verified all documentation Verification and Attestation of Medical Student E/M Service A medical student performed and documented this service in my presence. I reviewed and verified all information documented by the medical student and made modifications to such information, when appropriate. I personally performed the physical exam and medical decision making. Carline Loza, Jan 29, 2019,20:48 RADHA WRIGHT MED STUDENT Jan 28, 2019 10:50 CARLINE LOZA DO Jan 29, 2019 20:48
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
--- NOTE | 2019-01-28 11:56 | Physical Therapy Daily Note ---
PT Daily Note-Current Subjective Patient in wheelchair pre tx, agrees to PT reluctantly. Patient states he has significant pain but cannot rate it or tell location, states "don't worry about it". Patient is very agitated about family issues, his son is here and he is put into contact with Alannah Tomlinson. Appearance Patient in wheelchair post tx with nurse call, son in room and Alannah. Mental Status Patient Orientation: Person, Confused, Place Transfers SCALE: Activities may be completed with or without assistive devices. 9-Hlxvsldjjk-wltdcga completes the activity by him/herself with no assistance from a helper. 5-Set-up or Clean-up Assistance-helper sets up or cleans up; patient completes activity. [place] assists only prior to or following the activity. 4-Supervision or Touching Assistance-helper provides verbal cues and/or touching/steadying and/or contact guard assistance as patient completes activity. Assistance may be provided throughout the activity or intermittently. 3-Partial/Moderate Assistance-helper does LESS THAN HALF the effort. [place] lifts, holds or supports trunk or limbs, but provides less than half the effort. 2-Substantial/Maximal Assistance-helper does MORE THAN HALF the effort. [place] lifts or holds trunk or limbs and provides more than half the effort. 2-Gywhivgux-bswmql does ALL the effort. Patient does none of the effort to complete the activity. Or, the assistance of 2 or more helpers is required for the patient to complete the activity. If activity was not attempted, code reason: 7-Patient Refused. 9-Not Applicable-not attempted and the patient did not perform the activity before the current illness, exacerbation or injury. 10-Not Attempted due to Environmental Limitations-(lack of equipment, weather restraints, etc.). 88-Not Attempted due to Medical Conditions or Safety Concerns. Sit to Stand (QC): 4 Chair/Cys-ix-Bbagj Xfer(QC): 4 CGA for sit to stand and transfers, needs cues for hand placement and safety, will often pull from walker to stand Weight Bearing Full Weight Bearing Full Weight Bearing Gait Training Distance: 200', 150', 120' Walk 10 feet (QC): 4 Walk 50 ft with 2 Turns(QC): 4 Walk 150 ft (QC): 4 Gait Persons Needed: 1 Gait Assistive Device: FWW Patient ambulates at varying speeds (sometimes slower with poor step-through and other times briskly), has uncoordinated steps seems to be worse on the right side, no vicente LOB but is unsteady Exercises Standing: Hip Abduction, Heel/toe raises, Marching, Mini squats Standing Reps: 15 sidestepping in parallel bars 8'x8 NuStep Minutes: 13 NuStep Workload: 5 Treatments NuStep, transfers, ambulation, LE exercise Assessment Current Status: Fair Progress improving endurance PT Short Term Goals Short Term Goals Time Frame: Jan 28, 2019 Gait Distance Comment: 200' Gait Assistive Device: FWW (SBA) Wheelchair Distance: 50' PT Correction Goals Hydro Sprayer Operator Goals PT Correction Goals Time Frame: Feb 11, 2019 Sit to Lying (QC): 6 Lying-Sitting on Side/Bed(QC): 6 Sit to Stand (QC): 6 Roll Left to Right (QC): 6 Chair/Vda-da-Zpujp Xfer(QC): 6 Car Transfer (QC): 6 Distance: 300' Walk 10 feet (QC): 6 Walk 10ft-Uneven Surface(QC): 6 Walk 50ft with 2 Turns (QC): 6 Walk 150 ft (QC): 6 Gait Assistive Device: FWW # of Steps: 12 (SBA) 1 Step (curb) (QC): 4 4 Steps (QC): 4 12 Steps (QC): 4 Picking up an Object (QC): 4 (SBA) PT Plan Problem List Problem List: Activity Tolerance, Functional Strength, Safety, Balance, Gait, Transfer Treatment/Plan Treatment Plan: Continue Plan of Care Treatment Plan: Education, Functional Activity Omar, Functional Strength, Group Therapy, Gait, Safety, Therapeutic Exercise, Transfers Treatment Duration: Feb 11, 2019 Frequency: At least 5 of 7 days/Wk (IRF) Estimated Hrs Per Day: 1.5 hours per day Patient and/or Family Agrees t: Yes Safety Risks/Education Patient Education: Gait Training, Transfer Techniques, Correct Positioning, Safety Issues Teaching Recipient: Patient, Family Teaching Methods: Demonstration, Discussion Response to Teaching: Reinforcement Needed Time/GCodes Time In: 1100 Time Out: 1145 Total Billed Treatment Time: 45 Total Billed Treatment 1 visit GT 20' EX 25' TERESE WALSH PT Jan 28, 2019 11:56
--- NOTE | 2019-01-28 14:11 | Occupational Ther Daily Note ---
OT Current Status-Daily Note Subjective Pt seen in room, up in w/c, agreeable to OT. No pain mentioned. Appearance Alert, cooperative. Appears distressed about discharge planning. ADL-Treatment Pt reluctantly allowed transfer belt for transfers, for safety. Propelled w/c to bathroom and transferred SBA from w/c to toilet. Managed clothing and hygiene with SBA. Undressed lower body with SBA for shower, upper body and shoes/socks without help. Shower transfer from w/c to shower bench with CGA, cues for hand placement. Pt washed and dried all parts with supervision, SBA for safety for standing to wash bottom. Setup to manage water and towels. Dressed in w/c. Setup for socks/shoes, shirt (cues to lock w/c). CGA for steadying to manage pants, including standing to pull them up. Pt had already shaved and put in his cleaned dentures, w/c level, SBA. Therapy Code Descriptions/Definitions Functional [place] Measure: 0=Not Assessed/NA 4=Minimal Assistance 1=Total Assistance 5=Supervision or Setup 2=Maximal Assistance 6=Modified [place] 3=Moderate Assistance 7=Complete IndependenceSCALE: Activities may be completed with or without assistive devices. 7-Dwtzfhxxzh-cuchamr completes the activity by him/herself with no assistance from a helper. 5-Set-up or Clean-up Assistance-helper sets up or cleans up; patient completes activity. [place] assists only prior to or following the activity. 4-Supervision or Touching Assistance-helper provides verbal cues and/or touc amador/steadying and/or contact guard assistance as patient completes activity. Assistance may be provided throughout the activity or intermittently. 3-Partial/Moderate Assistance-helper does LESS THAN HALF the effort. [place] lifts, holds or supports trunk or limbs, but provides less than half the effort. 2-Substantial/Maximal Assistance-helper does MORE THAN HALF the effort. [place] lifts or holds trunk or limbs and provides more than half the effort. 8-Zuhkposft-vzfllq does ALL the effort. Patient does none of the effort to complete the activity. Or, the assistance of 2 or more helpers is required for the patient to complete the activity. If activity was not attempted, code reason: 7-Patient Refused. 9-Not Applicable-not attempted and the patient did not perform the activity before the current illness, exacerbation or injury. 10-Not Attempted due to Environmental Limitations-(lack of equipment, weather restraints, etc.). 88-Not Attempted due to Medical Conditions or Safety Concerns. Oral Hygiene (QC): 4 (SBA) Shower/Bathe Self (QC): 4 (Supervision, SBA) Upper Body Dressing (QC): 5 (setup) Lower Body Dressing (QC): 4 (CGA) Toileting Hygiene (QC): 4 (SBA) Toilet Transfer (QC): 4 (SBA) Other Treatment Pt propelled w/c to gym without help. Completed 13 minutes bilat UE exercise on arm bike set at 15W resistance, with one recovery break. Also did nuts and bolts activity with 1# weight on each arm. All to strengthen UEs as needed for transfers and ADLs. Also worked on coordination R UE (had more difficulty placing nut on bolt with R hand). Pt propelled w/c back to room and left up in w/c, all needs met. Education OT Patient Education: Modified ADL techniques, Progress toward Goal/Update tx plan, Purpose of tx/functional activities, Safety issues, Transfer techniques Teaching Recipient: Patient Teaching Methods: Demonstration, Discussion Response to Teaching: Verbalize Understanding, Return Demonstration, Reinforcement Needed OT Short Term Goals Short Term Goals Time Frame: Jan 28, 2019 Eating(FIM): 5 Grooming(FIM): 4 Bathing(FIM): 4 Upper Body Dressing(FIM): 4 Lower Body Dressing(FIM): 5 Toileting(FIM): 4 Transfers (B,C,W/C) (FIM): 4 Toilet/Commode Transfer(FIM): 4 Shower Transfer(FIM): 3 Additional Short Term Goals: 1-Demonstrate ADL Tasks, 2-Verbalize Understanding, 3-ImproveStrength/Omar 1=Demonstrate adherence to instructed precautions during ADL tasks. 2=Patient will verbalize/demonstrate understanding of assistive devices/modifications for ADL. 3=Patient will improve strength/tolerance for activity to enable patient to perform ADL's. OT Ointment Mill Tender Goals Longterm Goals Time Frame: Feb 11, 2019 Eating (QC): 6 Oral Hygiene (QC): 6 Shower/Bathe Self (QC): 5 Upper Body Dressing (QC): 5 Lower Body Dressing (QC): 5 On/Off Footwear (QC): 5 Toileting Hygiene (QC): 5 Toilet/Commode Transfer (QC): 5 Additional Goals: 1-Demonstrate ADL Tasks, 2-Verbalize Understanding, 3- ImproveStrength/Omar 1=Demonstrate adherence to instructed precautions during ADL tasks. 2=Patient will verbalize/demonstrate understanding of assistive devices/modifications for ADL. 3=Patient will improve strength/tolerance for activity to enable patient to perform ADL's. OT Education/Plan Discharge Recommendations Plan/Recommendations: Continue POC Treatment Plan/Plan of Care Patient would benefit from OT for education, treatment and training to promote independence in ADL's, mobility, safety and/or upper extremity function for ADL's. Plan of Care: ADL Retraining, Functional Mobility, Group Exercise/Act as Ind, UE Funct Exercise/Act, UE Neuromus Re-Ed/Coord, Visual/Perceptual Retrain Treatment Duration: Feb 11, 2019 Frequency: At least 5 of 7 days/Wk (IRF) Estimated Hrs Per Day: 1.5 hours per day Agreement: Yes Rehab Potential: Fair Time/GCodes Start Time: 08:45 Stop Time: 10:00 Total Time Billed (hr/min): 75 Billed Treatment Time visit, 43 minutes ADL, 32 minutes exercise ALBER PERAZA OT Jan 28, 2019 14:11
--- NOTE | 2019-01-28 14:32 | Speech Therapy Daily Note ---
Speech Daily Progress Note Subjective Date Seen by Provider: Jan 28, 2019 Time Seen by Provider: 00:30 Patient ate his breakfast during our session this morning. Objective Patient utilized compensatory strategies as trained with 80% given 20% verbal cues. Assessment Assessment Current Status: Good Progress Treatment Plan Continue Plan of Care Speech Short Term Goals Short Term Goals Short Term Goals 1) The patient will complete memory exercises related to his daily needs at 90% or greater given 10% or less in cues. 2) The patient will complete problem solving exercises related to his daily needs at 90% or greater given 10% or less in cues. 3) The patient will complete safety awareness exercises related to his daily needs at 90% or greater given 10% or less in cues. 4) The patient will complete speech intelligibility exercises for improved production at 90% or greater. 5) The patient will tolerate least restrictive diet level without s/s of aspiration at 90% or greater. 6) The patient will utilize compensatory strategies as trained for safe oral intake at 90% or greater given 10% or less in cues. Speech Radio Interference Trouble Shooter Goals Radio Interference Trouble Shooter Goals Patient will improve speech and cognitive levels for better communication within his living environment. Patient will maintain adequate nutrition/hydration via safe effective swallow function. Speech-Plan Patient/Family Goals Patient/Family Goals: Patient is scheduled to return to his home this Monday. Treatment Plan Speech Therapy Treatment Plan: Continue Plan of Care Patient is progressing with safety of oral intake. 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 Time Speech Therapy Time In: 08:15 Speech Therapy Time Out: 08:45 Total Billed Time: 30 Billed Treatment Time 1, ASHANTI LULA Lam Jan 28, 2019 14:32
--- NOTE | 2019-01-28 15:16 | NUR ---
Called Dr. Thayer's office regarding prism glasses for patient. Family Specialist reported that they are waiting on approval from [facility]. Once approval is obtained, the glasses will be ordered and the patient will be notified when they are ready for pick-up.
--- NOTE | 2019-01-28 15:29 | Physical Therapy Daily Note ---
PT Daily Note-Current Subjective Pt agreeable to PT. Reports he is hoping to discharge to his son's home. Transfers SCALE: Activities may be completed with or without assistive devices. 8-Vhidrxviid-awlfrim completes the activity by him/herself with no assistance from a helper. 5-Set-up or Clean-up Assistance-helper sets up or cleans up; patient completes activity. [place] assists only prior to or following the activity. 4-Supervision or Touching Assistance-helper provides verbal cues and/or touching/steadying and/or contact guard assistance as patient completes activity. Assistance may be provided throughout the activity or intermittently. 3-Partial/Moderate Assistance-helper does LESS THAN HALF the effort. [place] lifts, holds or supports trunk or limbs, but provides less than half the effort. 2-Substantial/Maximal Assistance-helper does MORE THAN HALF the effort. [place] lifts or holds trunk or limbs and provides more than half the effort. 3-Gkauocdqr-jcrgck does ALL the effort. Patient does none of the effort to complete the activity. Or, the assistance of 2 or more helpers is required for the patient to complete the activity. If activity was not attempted, code reason: 7-Patient Refused. 9-Not Applicable-not attempted and the patient did not perform the activity before the current illness, exacerbation or injury. 10-Not Attempted due to Environmental Limitations-(lack of equipment, weather restraints, etc.). 88-Not Attempted due to Medical Conditions or Safety Concerns. Weight Bearing Full Weight Bearing Full Weight Bearing Treatments Functional mobility / dynamic balance training with FWW with CGA with focus on functional sit to from stand transfers, up/down, curb,uneven surface, and weaving; skilled cues for safety and sequencing; PT stood at sink to wash his hands with CGA and cues for safety. Pt up in chair post treatment with call light in place. Assessment Decreased safety awareness with mobiltiy; requires cues for sequencing and safety. PT Short Term Goals Short Term Goals Time Frame: Jan 28, 2019 Gait Distance Comment: 200' Gait Assistive Device: FWW (SBA) Wheelchair Distance: 50' PT Director Investor Relations Goals Correction Goals PT Correction Goals Time Frame: Feb 11, 2019 Sit to Lying (QC): 6 Lying-Sitting on Side/Bed(QC): 6 Sit to Stand (QC): 6 Roll Left to Right (QC): 6 Chair/Otr-mj-Ncpzs Xfer(QC): 6 Car Transfer (QC): 6 Distance: 300' Walk 10 feet (QC): 6 Walk 10ft-Uneven Surface(QC): 6 Walk 50ft with 2 Turns (QC): 6 Walk 150 ft (QC): 6 Gait Assistive Device: FWW # of Steps: 12 (SBA) 1 Step (curb) (QC): 4 4 Steps (QC): 4 12 Steps (QC): 4 Picking up an Object (QC): 4 (SBA) PT Plan Problem List Problem List: Activity Tolerance, Functional Strength, Safety Treatment/Plan Treatment Plan: Continue Plan of Care Treatment Plan: Education, Functional Activity Omar, Functional Strength, Group Therapy, Gait, Safety, Therapeutic Exercise, Transfers Treatment Duration: Feb 11, 2019 Frequency: At least 5 of 7 days/Wk (IRF) Estimated Hrs Per Day: 1.5 hours per day Patient and/or Family Agrees t: Yes Safety Risks/Education Patient Education: Safety Issues Teaching Recipient: Patient Teaching Methods: Discussion Time/GCodes Time In: 1355 Time Out: 1425 Total Billed Treatment Time: 30 Total Billed Treatment visit NM 30 LUPE VALENTE PT Jan 28, 2019 15:29
[2019-01-28 16:22] VITALS: BP 155/95
[2019-01-28] MEDS: MELATONIN 3 MG TABLET PO PRN (21:06)
[2019-01-29] MEDS: ALPRAZolam 0.25 MG (XANAX) TAB PO PRN (02:42)
[2019-01-29] MEDS: hydrALAZINE (APRESOLINE) 25 MG TAB PO SCH ×4 (02:42→20:37)
[2019-01-29 05:16] VITALS: BP 135/82
--- NOTE | 2019-01-29 06:55 | NUR ---
PATIENT STILL ATTEMPTING TO GET UP TO BATHROOM WITHOUT USING CALL LIGHT. AGAIN REMINDED PATIENT OF THE DANGERS OF FALLING. PATIENT'S BRIEF VISIBLY SOILED YET PATIENT REFUSES TO PUT CLEAN BRIEF ON UNTIL AFTER HIS SHOWER WHICH HE STATES WILL BE AFTER HE "HAS A COKE". PATIENT STILL SITTING ON TOILET. HE IS ANGRY AND STATES "YOU ARE DISMISSED. I NEED MY PRIVACY." AGAIN TRANSFERS BACK TO WHEELCHAIR FROM TOILET WITHOUT USING CALL LIGHT. PATIENT STILL REMAINS UNSTEADY AND CONTINUES TO STATE "DO NOT TOUCH ME!!"
--- NOTE | 2019-01-29 07:21 | Occupational Ther Daily Note ---
OT Current Status-Daily Note Subjective Pt alert, sitting in w/c. Pt agrees to therapy, but states that he needs to wake up first before he takes a shower. No c/o pain. States that he has plans to move in with ex- in [place]. Mental Status/Objective Patient Orientation: Person, Place, Time, Situation ADL-Treatment Pt does verbalize the need to have hand holds or grabbars with transfers and ADLs. Pt took self to bathroom via w/c. Transferred onto toilet using grabbars and w/c by self though with safety concerns due to pt's balance. Pt then completed own clothing manipulation and toilet hygiene, safety concerns due to pt's balance. Pt does use grabbars and hand holds to stabilize self, verbalizes need for these items for safety. Pt was able to don/doff socks shoes sitting in w/c. Pt able to set up own meal and use regular utensils to eat. Pt retrieved clothes for shower using w/c. Pt transfers into <--> out of shower using w/c, shower bench and grabbars by self, safety concerns due to balance issues. Pt completed shower using hand held shower, grabbars and shower bench. Pt verbalized need of sitting in shower but then stated that at home he stood in shower and took out his shower seat. Pt completed grooming and oral care sitting in w/c at sink, independent. Pt dons/doffs upper/lower body clothing by self. Standing to hike pants, pt uses grabbars for stabilization. Pt is locking brakes on w/c consistently when transferring. After therapy, pt sitting in w/c with call light/phone in reach. All needs met in room. Therapy Code Descriptions/Definitions Functional [place] Measure: 0=Not Assessed/NA 4=Minimal Assistance 1=Total Assistance 5=Supervision or Setup 2=Maximal Assistance 6=Modified [place] 3=Moderate Assistance 7=Complete IndependenceSCALE: Activities may be completed with or without assistive devices. 7-Asskqkqaqx-agznwtw completes the activity by him/herself with no assistance from a helper. 5-Set-up or Clean-up Assistance-helper sets up or cleans up; patient completes activity. [place] assists only prior to or following the activity. 4-Supervision or Touching Assistance-helper provides verbal cues and/or touching/steadying and/or contact guard assistance as patient completes activity. Assistance may be provided throughout the activity or intermittently. 3-Partial/Moderate Assistance-helper does LESS THAN HALF the effort. [place] lifts, holds or supports trunk or limbs, but provides less than half the effort. 2-Substantial/Maximal Assistance-helper does MORE THAN HALF the effort. [place] lifts or holds trunk or limbs and provides more than half the effort. 1-Cxkhhhipd-djnbln does ALL the effort. Patient does none of the effort to complete the activity. Or, the assistance of 2 or more helpers is required for the patient to complete the activity. If activity was not attempted, code reason: 7-Patient Refused. 9-Not Applicable-not attempted and the patient did not perform the activity before the current illness, exacerbation or injury. 10-Not Attempted due to Environmental Limitations-(lack of equipment, weather restraints, etc.). 88-Not Attempted due to Medical Conditions or Safety Concerns. Eating (QC): 6 Oral Hygiene (QC): 6 Bathing Location: L Arm, R Arm, L Upper Leg, R Upper Leg, L Lower Leg (including foot), R Lower Leg (including foot), Chest, Abdomen, Buttocks, Perineal Area Shower/Bathe Self (QC): 6 Upper Body Dressing (QC): 6 Lower Body Dressing (QC): 6 Toileting Hygiene (QC): 6 Toilet Transfer (QC): 6 OT Short Term Goals Short Term Goals Time Frame: Jan 28, 2019 Eating(FIM): 5 Grooming(FIM): 4 Bathing(FIM): 4 Upper Body Dressing(FIM): 4 Lower Body Dressing(FIM): 5 Toileting(FIM): 4 Transfers (B,C,W/C) (FIM): 4 Toilet/Commode Transfer(FIM): 4 Shower Transfer(FIM): 3 Additional Short Term Goals: 1-Demonstrate ADL Tasks, 2-Verbalize Understanding, 3-ImproveStrength/Omar 1=Demonstrate adherence to instructed precautions during ADL tasks. 2=Patient will verbalize/demonstrate understanding of assistive devices/modifications for ADL. 3=Patient will improve strength/tolerance for activity to enable patient to perform ADL's. OT Die Storage Clerk Goals Retirement Goals Time Frame: Feb 11, 2019 Eating (QC): 6 (met-01/29/2019) Oral Hygiene (QC): 6 (met-01/29/2019) Shower/Bathe Self (QC): 5 (met-01/29/2019) Upper Body Dressing (QC): 5 (met-01/29/2019) Lower Body Dressing (QC): 5 (met-01/29/2019) On/Off Footwear (QC): 5 (met-01/29/2019) Toileting Hygiene (QC): 5 (met-01/29/2019) Toilet/Commode Transfer (QC): 5 (met-01/29/2019) Additional Goals: 1-Demonstrate ADL Tasks, 2-Verbalize Understanding, 3-Improv eStrength/Omar 1=Demonstrate adherence to instructed precautions during ADL tasks. 2=Patient will verbalize/demonstrate understanding of assistive devices/modifications for ADL. 3=Patient will improve strength/tolerance for activity to enable patient to p erform ADL's. OT Education/Plan Problem List/Assessment Assessment: Decreased Safety Aware, Impaired Funct Balance Discharge Recommendations Plan/Recommendations: Continue POC Equpiment Recommendations-D/C: Bath Chair, Other, See Comments (grabbars) Treatment Plan/Plan of Care Patient would benefit from OT for education, treatment and training to promote independence in ADL's, mobility, safety and/or upper extremity function for ADL's. Plan of Care: ADL Retraining, Functional Mobility, Group Exercise/Act as Ind, UE Funct Exercise/Act, UE Neuromus Re-Ed/Coord, Visual/Perceptual Retrain Treatment Duration: Feb 11, 2019 Frequency: At least 5 of 7 days/Wk (IRF) Estimated Hrs Per Day: 1.5 hours per day Agreement: Yes Rehab Potential: Fair Time/GCodes Start Time: 06:50 Stop Time: 08:05 Total Time Billed (hr/min): 75 Billed Treatment Time 1 visit-ADL 5 (75 min) LUPE COSBY Jan 29, 2019 07:21
[2019-01-29] MEDS: meTOproloL SUCCINATE 50 MG (TOPROL XL) TAB PO SCH (08:58)
[2019-01-29] MEDS: amLODIPine 5 MG (NORVASC) TAB PO SCH (08:58)
--- NOTE | 2019-01-29 09:17 | Speech Therapy Daily Note ---
Speech Daily Progress Note Subjective Date Seen by Provider: Jan 29, 2019 Time Seen by Provider: 00:30 Patient continues to voice concerns about his sister and taking his money. Objective Patient continues to utilize compensatory strategies as trained at 90% without cues today. Assessment Assessment Current Status: Good Progress Treatment Plan Continue Plan of Care Speech Short Term Goals Short Term Goals Short Term Goals 1) The patient will complete memory exercises related to his daily needs at 90% or greater given 10% or less in cues. 2) The patient will complete problem solving exercises related to his daily needs at 90% or greater given 10% or less in cues. 3) The patient will complete safety awareness exercises related to his daily needs at 90% or greater given 10% or less in cues. 4) The patient will complete speech intelligibility exercises for improved production at 90% or greater. 5) The patient will tolerate least restrictive diet level without s/s of aspiration at 90% or greater. 6) The patient will utilize compensatory strategies as trained for safe oral intake at 90% or greater given 10% or less in cues. Speech Wood Boatbuilder Apprentice Goals Wood Boatbuilder Apprentice Goals Patient will improve speech and cognitive levels for better communication within his living environment. Patient will maintain adequate nutrition/hydration via safe effective swallow function. Speech-Plan Patient/Family Goals Patient/Family Goals: Patient is scheduled for returning to his home with his sister tomorrow. Treatment Plan Speech Therapy Treatment Plan: Continue Plan of Care Patient has made good progress as a result of skilled ST. Treatment Duration: Feb 01, 2019 Frequency: 5 times per week Estimated Hrs Per Day: .5 hour per day Rehab Potential: Fair Barriers to Learning: Patient has some mild confusion, however this has resolved over the course of his stay. Pt/Family Agrees to Plan: Yes Safety Risks/Education Teaching Recipient: Patient Teaching Methods: Demonstration, Discussion Response to Teaching: Verbalize Understanding, Return Demonstration Education Topics Provided: Continued safety with oral intake upon his return home. Time Speech Therapy Time In: 08:30 Speech Therapy Time Out: 09:00 Total Billed Time: 30 Billed Treatment Time 1NATHAN [address] ST Jan 29, 2019 09:17
--- NOTE | 2019-01-29 09:20 | PM&R Progress Note ---
Subjective HPI/CC On Admission Date Seen by Provider: Jan 29, 2019 Time Seen by Provider: 08:45 CC: Debility following intracerebral hemorrhage of cerebellum HPI: This is a 63yoWM clinic patient of [facility] Dr Patiño who presents to IRF at the request of his neurologist following a lengthy 7 month course following a HTN source of cerebellar hemorrhage which required surgical intervention after transferred from [facility] then to [facility] then required ICU monitoring and PEG and trach then transferred to [facility] on 07/23/18 and had a lengthy stay and then was admitted to [facility] for slow recovery and ultimately DC home with sister and now ready to participate in therapies in order to regain lost functioning. Patient has a h/o ETOH abuse and tobacco use both of which have ceased now since illness. Subjective/Events-last exam Pt becoming more and more cranky and belligerent with the staff. Wants to go home with his ex-. His DPOA is his sister, until that is changed and since it is a safe environment for discharge will either need to go with his sister tomorrow or go to the custodial. Very difficult to manage psycho-social issues in addition to psychiatric problems that he has from long-term alcoholism. 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 Reviewed therapy notes. Conferred with RN. Review of Systems General: Fatigue Neurological: Confusion Objective Exam Vital Signs Vital Signs Date Time Temp Pulse Resp B/P (MAP) Pulse Ox O2 Delivery O2 Flow Rate FiO2 01/29/19 16:01 36.8 75 16 154/83 (106) 97 Room Air Capillary Refill : General Appearance: No Apparent Distress, WD/WN, Chronically ill HEENT: PERRL/EOMI, Normal ENT Inspection, Pharynx Normal, Moist Mucous Membranes Neck: Full Range of Motion, Normal Inspection, Non Tender, Supple Respiratory: Chest Non Tender, Lungs Clear, Normal Breath Sounds, No Accessory Muscle Use, No Respiratory Distress Cardiovascular: Regular Rate, Rhythm, No Edema, No Gallop, No JVD, No Murmur Gastrointestinal: Normal Bowel Sounds, No Organomegaly, No Pulsatile Mass, Non Tender, Soft Back: Normal Inspection, No CVA Tenderness, No Vertebral Tenderness Extremity: Normal Capillary Refill, Normal Inspection, Normal Range of Motion, Non Tender, No Calf Tenderness, No Pedal Edema Neurologic/Psychiatric: Alert, Oriented x3, No Motor/Sensory Deficits, Normal Mood/Affect, Disoriented, Motor Weakness (right sided upper and lower) Skin: Normal Color, Warm/Dry Lymphatic: No Adenopathy Results/Procedures Lab Patient resulted labs reviewed. FIM Transfers Therapy Code Descriptions/Definitions Functional [place] Measure: 0=Not Assessed/NA 4=Minimal Assistance 1=Total Assistance 5=Supervision or Setup 2=Maximal Assistance 6=Modified [place] 3=Moderate Assistance 7=Complete IndependenceSCALE: Activities may be completed with or without assistive devices. 0-Uqkvvucint-arotpzu completes the activity by him/herself with no assistance from a helper. 5-Set-up or Clean-up Assistance-helper sets up or cleans up; patient completes activity. [place] assists only prior to or following the activity. 4-Supervision or Touching Assistance-helper provides verbal cues and/or touching/steadying and/or contact guard assistance as patient completes activity. Assistance may be provided throughout the activity or intermittently. 3-Partial/Moderate Assistance-helper does LESS THAN HALF the effort. [place] lifts, holds or supports trunk or limbs, but provides less than half the effort. 2-Substantial/Maximal Assistance-helper does MORE THAN HALF the effort. [place] lifts or holds trunk or limbs and provides more than half the effort. 3-Izevrdnbs-ipfeyi does ALL the effort. Patient does none of the effort to complete the activity. Or, the assistance of 2 or more helpers is required for the patient to complete the activity. If activity was not attempted, code reason: 7-Patient Refused. 9-Not Applicable-not attempted and the patient did not perform the activity before the current illness, exacerbation or injury. 10-Not Attempted due to Environmental Limitations-(lack of equipment, weather restraints, etc.). 88-Not Attempted due to Medical Conditions or Safety Concerns. Transfers (B, C, W/C) (FIM): 5 Roll Left to Right (QC): 5 Sit to Lying (QC): 5 Sit to Stand (QC): 4 Chair/Aoq-in-Ixpnw Xfer(QC): 4 Car Transfer (QC): 4 Gait Training Does the Patient Walk?: Yes Gait (FIM): 4 Distance: 200', 150', 120' Walk 10 feet (QC): 4 Walk 50 ft with 2 Turns(QC): 4 Walk 150 ft (QC): 4 Walking 10ft/uneven surface-QC: 4 Gait Persons Needed: 1 Gait Assistive Device: FWW Wheelchair Training Does the Pt Use a Wheelchair?: Yes Wheelchair Distance: 3=150 ft Distance: 50' Wheel 50 ft with 2 turns (QC): 5 Wheel 150 ft (QC): 5 Type of Wheelchair: Manual Stair Training #of Steps: 4 1 Step (curb) (QC): 4 4 Steps (QC): 4 Balance Picking up an Object (QC): 4 (CGA) ADL-Treatment Eating (QC): 6 Oral Hygiene (QC): 6 Bathing Location: L Arm, R Arm, L Upper Leg, R Upper Leg, L Lower Leg (including foot), R Lower Leg (including foot), Chest, Abdomen, Buttocks, Perineal Area Shower/Bathe Self (QC): 6 Upper Body Dressing (QC): 6 Lower Body Dressing (QC): 6 On/Off Footwear (QC): 4 Toileting Hygiene (QC): 6 Toilet Transfer (QC): 6 Assessment/Plan Assessment and Plan Assess & Plan/Chief Complaint Assessment: ICH cerebellar 07/03 Right sided weakness Former smoker ETOHism hx Cognitive and mental issues complicating recovery Psychiatric issues Unable to make decisions for himself Plan: Monitor BP Home meds PT/OT Monitor bowel function Psych eval? Very difficult dispo now since he now is accusing his sister of taking advantage of him financially she is the one that cared for him at home Monitor closely and provide supportive care Patient is unable to make decisions for himself. (1) Intracranial hemorrhage Status: Chronic (2) Stroke (3) GERD (gastroesophageal reflux disease) Status: Chronic Qualifiers: Esophagitis presence: without esophagitis Qualified Codes: K21.9 - Gastro- esophageal reflux disease without esophagitis (4) Hypertension Status: Chronic Qualifiers: Hypertension type: essential hypertension Qualified Codes: I10 - Essential (primary) hypertension (5) History of alcohol abuse Status: Chronic (6) Former smoker Status: Chronic HAWK LOZA DO Jan 29, 2019 09:20
--- NOTE | 2019-01-29 09:52 | Physical Therapy Daily Note ---
PT Daily Note-Current Subjective Patient in wheelchair pre tx, agrees reluctantly to PT, has pain all over he says but will not rate it. Patient is agitated and angry about DC plans. Appearance Patient in wheelchair at bedside post tx with nurse call, phone, tray, all needs met. Mental Status Patient Orientation: Person, Confused, Place Transfers SCALE: Activities may be completed with or without assistive devices. 9-Udmpgitvfa-svopzlp completes the activity by him/herself with no assistance from a helper. 5-Set-up or Clean-up Assistance-helper sets up or cleans up; patient completes activity. [place] assists only prior to or following the activity. 4-Supervision or Touching Assistance-helper provides verbal cues and/or touching/steadying and/or contact guard assistance as patient completes activity. Assistance may be provided throughout the activity or intermittently. 3-Partial/Moderate Assistance-helper does LESS THAN HALF the effort. [place] lifts, holds or supports trunk or limbs, but provides less than half the effort. 2-Substantial/Maximal Assistance-helper does MORE THAN HALF the effort. [place] lifts or holds trunk or limbs and provides more than half the effort. 1-Onspdweir-dmubeq does ALL the effort. Patient does none of the effort to complete the activity. Or, the assistance of 2 or more helpers is required for the patient to complete the activity. If activity was not attempted, code reason: 7-Patient Refused. 9-Not Applicable-not attempted and the patient did not perform the activity bef ore the current illness, exacerbation or injury. 10-Not Attempted due to Environmental Limitations-(lack of equipment, weather r estraints, etc.). 88-Not Attempted due to Medical Conditions or Safety Concerns. Roll Left to Right (QC): 6 Sit to Lying (QC): 6 Sit to Stand (QC): 4 Chair/Kve-ll-Ctlhk Xfer(QC): 4 Car Transfer (QC): 4 Patient performs bed mobility with mod I, supine <-> sit mod I, sit <-> stand with CGA, transfers with CGA, car transfer CGA. Patient needs cues for hand placement and safety. Patient will often stand while pulling up from the walker. Weight Bearing Full Weight Bearing Full Weight Bearing Gait Training Distance: 200' Walk 10 feet (QC): 4 Walk 50 ft with 2 Turns(QC): 4 Walk 150 ft (QC): 4 Walking 10ft/uneven surface-QC: 4 Gait Persons Needed: 1 Gait Assistive Device: FWW Patient can ambulate 200' with a rolling walker with CGA (including 50' with at least 2 turns of 90 degrees and 10' over an uneven surface). Patient ambulates very slowly, has uneven step-through. Wheelchair Training Does the Pt Use a Wheelchair?: Yes Distance: 150' Wheel 50 ft with 2 turns (QC): 6 Wheel 150 ft (QC): 6 Type of Wheelchair: Manual Stair Training Stair Training: Handrails/: 2 handrails #of Steps: 4 1 Step (curb) (QC): 4 4 Steps (QC): 4 Stairs: Pattern: Reciprocal Patient can go up and down 4 steps using 2 handrails with CGA. Patient needs cues for foot placement and safety. Exercises NuStep Minutes: 10 NuStep Workload: 5 Treatments bed mobility and transfers, ambulation, car transfers, LE strengthening, stairs Assessment Current Status: Fair Progress Patient is impulsive and resistant to following cues for safety and direction. He is agitated and angry about DC plans. Patient has poor safety awareness and is a high fall risk. PT Short Term Goals Short Term Goals Time Frame: Jan 28, 2019 Gait Distance Comment: 200' Gait Assistive Device: FWW (SBA) Wheelchair Distance: 50' PT Prison Goals Prison Goals PT Prison Goals Time Frame: Feb 11, 2019 Sit to Lying (QC): 6 Lying-Sitting on Side/Bed(QC): 6 Sit to Stand (QC): 6 Roll Left to Right (QC): 6 Chair/Tnx-ib-Dxokc Xfer(QC): 6 Car Transfer (QC): 6 Distance: 300' Walk 10 feet (QC): 6 Walk 10ft-Uneven Surface(QC): 6 Walk 50ft with 2 Turns (QC): 6 Walk 150 ft (QC): 6 Gait Assistive Device: FWW # of Steps: 12 (SBA) 1 Step (curb) (QC): 4 4 Steps (QC): 4 12 Steps (QC): 4 Picking up an Object (QC): 4 (SBA) PT Plan Problem List Problem List: Activity Tolerance, Functional Strength, Safety, Balance, Gait, Transfer Treatment/Plan Treatment Plan: Continue Plan of Care Treatment Plan: Education, Functional Activity Omar, Functional Strength, Group Therapy, Gait, Safety, Therapeutic Exercise, Transfers Treatment Duration: Feb 11, 2019 Frequency: At least 5 of 7 days/Wk (IRF) Estimated Hrs Per Day: 1.5 hours per day Patient and/or Family Agrees t: Yes Safety Risks/Education Patient Education: Gait Training, Transfer Techniques, Steps, Correct Positioning, Safety Issues Teaching Recipient: Patient Teaching Methods: Demonstration, Discussion Response to Teaching: Reinforcement Needed Time/GCodes Time In: 0900 Time Out: 0950 Total Billed Treatment Time: 50 Total Billed Treatment 1 visit EX 10' GT 20' FA 20' TERESE WALSH PT Jan 29, 2019 09:52
--- NOTE | 2019-01-29 11:21 | Progress Note ---
RADHA WRIGHT MED STUDENT 01/29/19 1121: Subjective Date Seen by a Provider: Jan 29, 2019 Time Seen by a Provider: 08:15 Subjective/Events-last exam CC: s/p cerebellar hemorrhage due to HTN * Demonstrated standing, swayed somewhat. * Reports feeling capable of going home and taking care of himself, feels capable of working, although he admits he has limitations and needs time to heal. * Can be repetitive and tangential in giving history. * Reported he would not like to go home with his sister, insinuates she is controlling and takes advantage of him, reports his ex- told him he could live with her. * Participating in PT/OT, showing progress Review of Systems General: No Chills HEENT: No Sinus Congestion, No Sore Throat Pulmonary: No Dyspnea, No Cough Cardiovascular: No: Chest Pain Gastrointestinal: No: Diarrhea, Constipation Genitourinary: No Dysuria, No Frequency Neurological: No: Weakness, Numbness Objective Exam Last Set of Vital Signs Vital Signs Date Time Temp Pulse Resp B/P (MAP) Pulse Ox O2 Delivery O2 Flow Rate FiO2 01/29/19 05:16 36.7 73 18 135/82 (99) 96 Room Air Capillary Refill : I&O Intake and Output 01/29/19 00:00 Intake Total 1130 ml Balance 1130 ml Intake Oral 1130 ml # Voids 6 # Bowel Movements 2 General: Alert, Oriented X3, Cooperative Lungs: Clear to Auscultation Heart: Regular Rate, Normal S1, Normal S2, No Murmurs Neuro: Other (demonstrated standing up, seemed to sway slightly) Assessment/Plan Assessment/Plan Assess & Plan/Chief Complaint Assessment: 1. history of cerebellar hemorrhage due to hypertension 2. hypertension 3. GERD 4. history of alcohol abuse 5. former tobacco abuse 6. poor insight into condition Plan: 1. monitor blood pressure 2. continue PT/OT 3. consider psychiatric evaluation 4. continue medications for chronic conditions Clinical Quality Measures DVT/VTE Risk/Contraindication: Risk Factor Score Per Nursin RFS Level Per Nursing on Admit: 4+=Very High CARLINE LOZA DO 01/29/19 0284: Supervisory-Addendum Brief Verification & Attestation Participated in pt care: history, MDM, physical Personally performed: exam, history, MDM, supervision of care Care discussed with: Medical Student Procedures: n/a Results interpretation: Verified all documentation Verification and Attestation of Medical Student E/M Service A medical student performed and documented this service in my presence. I reviewed and verified all information documented by the medical student and made modifications to such information, when appropriate. I personally performed the physical exam and medical decision making. Carline Loza, Jan 29, 2019,21:05 RADHA WRIGHT MED STUDENT Jan 29, 2019 11:21 CARLINE LOZA DO Jan 29, 2019 21:05
--- NOTE | 2019-01-29 13:08 | NUR ---
In partnership with [employer], met with patient to discuss further discharge planning. According to patient, Dr. Lopez and patient made the decision he will return to his sister's home; however, patient states he has changed his mind and he intends to dismiss to a "rest home". Patient provided a choice list of local SNF. Patient then quickly changes his mind by stating he plans to discharge to his ex-'s home in [place], [place]. It was explained to patient by admitting to a local SNF, this would allow him time to further coordinate moving to [place], e.g. home modifications, ramp, care providers etc. Patient adamant the home is prepared and all it lacks is a ramp, which can be assembled "within hours". Patient requests this worker contact patient's ex-, Charlotte, to coordinate his request. Patient provided Charlotte's number ([phone]). Upon exiting patient's room, this worker approached by patient's sister, Yaneth. Yaneth escorted to this worker's office. Yaneth updated in regards to initial discharge plan of patient returning to her home, as well as a potential change of plan to SNF vs. Charlotte's. Yaneth states she is willing to do what is in the best interest of her brother's safety, and if that means he discharge to her home then that is okay. Yaneth, however, states she is willing for patient to dismiss to a SNF, if recommended. Yaneth agreeable to visit with patient to further discuss discharge planning. Upon entering patient's room, patient found sitting at bedside and patient's son, Kurt sitting nearby. Intent of conversation stated and further discussion ensued. Patient stated his wishes of dismissing to SNF vs. Charlotte's, and that returning to Yaneth's is not an option. This worker stated confirmation that Yaneth's home is no longer an option as a discharge destination; Yaneth agreed by shaking her head "yes". Patient and Kurt began making accusations towards Yaneth, and the nature of the conversation began to escalate. This worker diffused this potential confrontation by redirecting conversation to formulating a safe discharge plan. Patient states he is willing to admit to a SNF, as long as it is in [place], [place]. A list of SNF in [place], [place] printed from Medicare web site. Although patient is willing to admit to a SNF, his preferred plan is to dismiss to his ex-'s home. Asked patient if Charlotte is physically capable of assisting him to complete daily tasks, such as dressing, bathing, toileting, etc. Patient states he does not need any assistance with ADL's. Per Yaneth's report to this worker, Charlotte is on dialysis. When this worker asked patient if Charlotte is on dialysis, Kurt responded by saying she receives her dialysis at home. When asked how much support she would be able to provide, Kurt states she is always home, and the only time she leaves is for doctor appointments. Patient states Kurt's kids live with her as well. This worker agreeable to contact patient's ex-, Charlotte, to further discuss the possibility of him discharging to her home. Yaneth states she will bring his belongings from home to the hospital. This worker, Yaneth, and [employer] met immediately following discussion with patient and Kurt. Yaneth expresses interest in terminating her DPOA HC, if patient does in fact dismiss to [place]. Yaneth also states she feels patient needs a guardian that could provide third libertarian support, for patient. Dr. Lopez states she intends to document in today's progress note that patient is incapable of making his own decisions. Due to patient's inability to make his own decisions, DPOA HC initiated. According to [facility], the guardianship process is to be initiated via hotline. Yaneth contacted [facility] and filed a report. Yaneth requested a referral be made to [facility]. Will continue to follow.
--- NOTE | 2019-01-29 13:14 | NUR ---
RD FOLLOW-UP PMHx: HTN, ETOH abuse, COPD, GERD, stroke, chronic diarrhea PT INTERACTION: Pt was awake and pleasant during nutrition follow-up. Pt states currently eating well. Note pt conumed 100% of meals x3d. Pt states no recent issues of n/v/c/d over the last week. ABNORMAL NUTRITION-RELATED LAB VALUES: All labs WNL Est. kcal needs: 3516-6719 kcal (25-30 kcal/kg) Est. Pro needs: 71-88 g Pro (0.8-1.0 g Pro/kg) PES STATEMENT: No nutrition diagnosis at this time (NO-1.1) INTERVENTION: Continue with current diet order of regular diet. From nutrition standpoint, pt is ready for discharge. Will continue to follow. MONITOR/EVALUATE: PO Intake; Plan of Care; Hydration Status; Weight Status; Lab Values Laura Ferrell, MS, RD, LD Ext. [phone]
--- NOTE | 2019-01-29 14:05 | Physical Therapy Daily Note ---
PT Daily Note-Current Subjective Pt sitting in W/C pre-treatment with son present in room. Pt agrees to PT with son's suggestion's that he will join on ambulation. Patient voices no complaints of pain. Appearance Pt sitting in W/C post-treatment with son present in room. Pt with nurse call light, and room phone in reach. Mental Status Patient Orientation: Person, Confused (Pt multiple times states he is unsure why he is here and states that he can leave at any time he wants.), Place Transfers SCALE: Activities may be completed with or without assistive devices. 4-Gunygxezew-aghvxqj completes the activity by him/herself with no assistance from a helper. 5-Set-up or Clean-up Assistance-helper sets up or cleans up; patient completes activity. [place] assists only prior to or following the activity. 4-Supervision or Touching Assistance-helper provides verbal cues and/or touching/steadying and/or contact guard assistance as patient completes activity. Assistance may be provided throughout the activity or intermittently. 3-Partial/Moderate Assistance-helper does LESS THAN HALF the effort. [place] lifts, holds or supports trunk or limbs, but provides less than half the effort. 2-Substantial/Maximal Assistance-helper does MORE THAN HALF the effort. [place] lifts or holds trunk or limbs and provides more than half the effort. 8-Glkyhtutj-llasvp does ALL the effort. Patient does none of the effort to complete the activity. Or, the assistance of 2 or more helpers is required for the patient to complete the activity. If activity was not attempted, code reason: 7-Patient Refused. 9-Not Applicable-not attempted and the patient did not perform the activity before the current illness, exacerbation or injury. 10-Not Attempted due to Environmental Limitations-(lack of equipment, weather restraints, etc.). 88-Not Attempted due to Medical Conditions or Safety Concerns. Sit to Stand (QC): 4 Weight Bearing Full Weight Bearing Full Weight Bearing Gait Training Gait: 4 Distance: 500'x2 with sitting rest break between Walk 10 feet (QC): 4 Walk 50 ft with 2 Turns(QC): 4 Walk 150 ft (QC): 4 Walking 10ft/uneven surface-QC: 4 Gait Persons Needed: 1 Gait Assistive Device: FWW Pt switches back and fourth between slow step-too gait pattern and brisk step- through gait pattern with decreased balance but no gross LOB. Treatments Skilled ambulation training. Assessment Current Status: Fair Progress Pt's with slightly improved balance from previous session with brisk step- through ambulation. Pt reported feeling "weird, but I'm not going to puke" during sitting break in ambulation but reported he could walk back to his room and stated he was fine on return to room. PT Short Term Goals Short Term Goals Time Frame: Jan 28, 2019 Gait Distance Comment: 200' Gait Assistive Device: FWW (SBA) Wheelchair Distance: 150' PT Documentation Improvement Specialist Goals Snf Goals PT Documentation Improvement Specialist Goals Time Frame: Feb 11, 2019 Sit to Lying (QC): 6 Lying-Sitting on Side/Bed(QC): 6 Sit to Stand (QC): 6 Roll Left to Right (QC): 6 Chair/Hoa-jw-Rtmhu Xfer(QC): 6 Car Transfer (QC): 6 Distance: 300' Walk 10 feet (QC): 6 Walk 10ft-Uneven Surface(QC): 6 Walk 50ft with 2 Turns (QC): 6 Walk 150 ft (QC): 6 Gait Assistive Device: FWW # of Steps: 12 (SBA) 1 Step (curb) (QC): 4 4 Steps (QC): 4 12 Steps (QC): 4 Picking up an Object (QC): 4 (SBA) PT Plan Problem List Problem List: Activity Tolerance, Functional Strength, Safety, Balance, Gait, Transfer Treatment/Plan Treatment Plan: Continue Plan of Care Treatment Plan: Education, Functional Activity Omar, Functional Strength, Group Therapy, Gait, Safety, Therapeutic Exercise, Transfers Treatment Duration: Feb 11, 2019 Frequency: At least 5 of 7 days/Wk (IRF) Estimated Hrs Per Day: 1.5 hours per day Patient and/or Family Agrees t: Yes Safety Risks/Education Patient Education: Gait Training, Transfer Techniques, Safety Issues Teaching Recipient: Patient Teaching Methods: Demonstration, Discussion Response to Teaching: Verbalize Understanding, Reinforcement Needed Time/GCodes Time In: 1325 Time Out: 1355 Total Billed Treatment Time: 30 Total Billed Treatment 1 Visit 30' GT TERESE WALSH PT Jan 29, 2019 14:05
[2019-01-29 15:13] VITALS: BP 141/90
--- NOTE | 2019-01-29 15:29 | NUR ---
Noted small, oval shaped, reddened area on inner Lt forearm. Pt states that he doesn't know how he got it. Approx pea sized. Cleansed area & placed Mepilex over area. Pt, & son state that he took the bandaid off of Rt wrist where he had had a sore earlier. Son states that pt picks at himself. Instr. pt to not pick at any areas on skin, & instr on Mepilex.
[2019-01-29 16:01] VITALS: BP 154/83
--- NOTE | 2019-01-29 16:46 | NUR ---
[facility] here to assess patient for admission; however, upon further discussion, [facility] staff chose not to visit with patient as they want to ensure they do not place patient on same court as his mother. [facility] staff to follow-up with this worker once they can confirm they have a bed available on a different court. Will continue to follow.
--- NOTE | 2019-01-29 19:22 | NUR ---
bedside report received from MOHINI BRYANT, assume care of pt
--- NOTE | 2019-01-29 20:25 | NUR ---
pt sleeping awakened for meds & assessments, denies pain just wants to be left alone
[2019-01-29 20:28] VITALS: BP 142/85
[2019-01-30] MEDS: hydrALAZINE (APRESOLINE) 25 MG TAB PO SCH ×2 (02:40→08:55)
[2019-01-30 05:42] VITALS: BP 131/82
--- NOTE | 2019-01-30 07:24 | NUR ---
bedside report given to DEN BRYANT
[2019-01-30] MEDS: amLODIPine 5 MG (NORVASC) TAB PO SCH (08:55)
[2019-01-30] MEDS: meTOproloL SUCCINATE 50 MG (TOPROL XL) TAB PO SCH (08:55)
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
--- NOTE | 2019-01-30 10:06 | Physical Therapy Progress Note ---
Therapy Progress Note GROUNDS MAINTENANCE WORKER arrives for Rx and pt declines adamantly. When asked about whether pt would like to try NuStep, EX, take a walk,etc. Pt again declined stating "I'm leaving shortly [facility]". Pt is resting in W/C with all needs met, call light next to pt. DERRICK CORONA GROUNDS MAINTENANCE WORKER Jan 30, 2019 10:06
--- NOTE | 2019-01-30 10:15 | NUR ---
I was on floor rounding when pt waved me into room, pts son was on phone throughout my visit. Pt began sharing with me information regarding his dismissal and his concerns. I listened and allowed his to vent, pt was confused about our previous conversations listing things we had not spoken of. I assured pt all the staff wanted to help him.
--- NOTE | 2019-01-30 10:48 | NUR ---
Met with patient and his son, Kurt to discuss discharge plans. Prior to entering room, this worker requested two male medical students be outside of the patient's room, in the event the patient and/or his son become angry with information discussed. It was explained that a referral has been made to [facility]. Patient questioned why a referral was not made to a [place] facility. This worker explained it has been determined a local facility is in the patient's best interest as he is medically established within the area; examples provided - PCP, [facility], Psychologist. Patient's son stated his father is better established in [place], [place], since [facility] is where he was hospitalized for his CVA. Patient questioned why he can't choose to discharge to a facility in [place] vs. his ex-'s home. This worker proceeded by explaining that Dr. Lopez does not feel the patient can make his own decisions, at this time. Patient's son, Kurt began stating, "They have taken your rights away, you realize this right?" Patient and son both began questioning the legality associated with Dr. Lopez's right in making this decision. This worker assured them that the [facility] legal mill representative has confirmed Dr. Lopez's ability to make this determination. Kurt requesting a second opinion from a physician affiliated with an outside provider. This worker states she could reach out to an alternative [facility] physician for second opinion; however, Kurt stated he wants it to be a non-affiliated physician. This worker stated he is welcome to consult an outside physician, if he wishes. Kurt questioned why the patient can't discharge to a SNF in [place], [place]. It was explained that because the patient is deemed incapable of making his own decisions, at this time, that his DPOA of healthcare decisions is enacted; therefore, his DPOA, Yaneth has chosen to proceed with a referral to be made to [facility]. Kurt became frustrated with this worker, this was observed by the tone of his voice and body language, e.g. shifting in his seat. Kurt states his father is far more "clear" now than he has been since his stroke. This worker reiterating to patient that he had selected his sister to be his DPOA; therefore, his sister is making the decisions, at this time. Kurt questioning patient's ability to appoint his DPOA, if he is now being considered unable to make decisions. This worker stated it was up the individual completing the paperwork to determine the patient's ability to appoint a DPOA, at the time of completion. Kurt continued to raise his voice; therefore, this worker excused herself from the room.
--- NOTE | 2019-01-30 11:09 | NUR ---
This RN called [place] [employer] to inform them that we have a patient on the unit that might leave AMA. The Officer states to this RN, "I don't know why you guys always call us. This has nothing to do with us. This is a court matter not a police matter." This RN states that she was instructed by Dr. Lopez to call the police if patient stated they were going to leave AMA. Will notify concrete floor installer of conversation and continue to monitor patient and situation.
--- NOTE | 2019-01-30 11:20 | NUR ---
This worker and patient's nurse, Ricarda, asked to talk with patient and his son regarding discharge plan. 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 Explained to the patient and son, that at the moment, the safest discharge options are either to return home with his sister, Yaneth, or to go to [facility]. Patient adamantly refusing to discharge home with his sister and states [facility] is "premature." Patient asking to discharge to his ex-'s house in [place], [place]. Patient asks what would happen if he "wheeled himself out of here." Educated the patient and his son on what it means to leave against medical advice. Both patient and his son verbalized understanding of risks and consequences of leaving against medical advice. Patient agreeable to stay at this time but requesting continued work on discharge planning as he does not intend to discharge home with his sister or to [facility]. This worker, patient's nurse, Ricarda, and Thalia social media marketing analyst, then met with MAKEDA Dill Nurse Nipple Threader, Shant Lozano, strategic sourcing consultant and via phone, Shant Henderson, Risk Management. Details leading to current situation were discussed, including recommended discharge plans, concerns voiced by patient, patient's son and patient's sister, and VA document on file listing his sister, Yaneth, as DPOA for Medical Decisions. It was concluded that if the patient was choosing not to follow recommended discharge plan and insisting on leaving, he could leave against medical advice. Returned to rehab unit and this worker, along with patient's nurse, met with the patient and patient's son. Informed patient and his son that if the patient was not willing to follow the recommendation of discharging home with his sister or to [facility], and insisted on discharging from the hospital, it would be against medical advice. The patient and his son verbalized understanding of risks and consequences of leaving against medical advice. The patient stated he was leaving and would sign out against medical advice.
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
--- NOTE | 2019-01-30 11:46 | Occ Therapy Progress Note ---
Therapy Progress Note Pt refuses to participate in OT this date. Pt stated that "they have tired me out today" and "if I stay here passed 12 then can I stay until tomorrow?" Referred pt back to social worker assistant for question about staying. Gave pt option of ADLs or UE exercises, pt continued to declined participation. Refusal LUPE COSBY Jan 30, 2019 11:46
[2019-01-30] MEDS ORDERED: AMLO10TA7 PO (11:49)
[2019-01-30] MEDS ORDERED: HYDR-3923 PO (11:49)
[2019-01-30] MEDS ORDERED: METO-370 PO (11:49)
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
--- NOTE | 2019-01-30 12:00 | NUR ---
Patient signed AMA papers and patient's scripts given to patient. Patient left floor AMA per WC accompanied by son at this time.
--- NOTE | 2019-01-30 12:51 | NUR ---
Patient's sister, Yaneth, notified that patient signed out against medical advice and left the hospital with his son. Yaneth verbalized understanding of information discussed.
--- NOTE | 2019-01-30 12:52 | NUR ---
D[facility] Adult Cytogenetics Technologist, Kianna Wilder notified of patient dismissing from the hospital [place]. She was also informed the patient left in the care of his son, Kurt; therefore, it is suspected the patient is going to [place]. Nhan
--- NOTE | 2019-01-30 14:14 | Progress Note ---
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 Admitted to [facility] for slow recovery, had been discharged home with sister. Began rehab to regain lost functioning. * Mr. Bergeron made progress in PT/OT, but remained unable to walk steadily. He was able to stand but is unsteady. * Significant concern for psychiatric comorbidities emerged throughout his stay, was determined to be unable to make medical decisions for himself, concern that he could be taken advantage of. * Significant concerns about Mr. Bergeron's social support emerged during his stay. He decided that he did not want his sister to be his DPOA, and wanted to leave with his son, and could live with his ex-. * Today he had no complaints. [place] he had the strength and capability to be discharged. * Today he dismissed himself from hospital [place] with his son, Kurt. DCF Adult Academic Coach, Kianna Wilder, notified. * Next Step: Plan was to discharge to SNF today, 01/30/19, however, he dismissed himself AMA CARLINE LOZA DO 01/31/19 0859: Supervisory-Addendum Brief Verification & Attestation Participated in pt care: history, MDM, physical Personally performed: exam, history, MDM, supervision of care Care discussed with: Medical Student Procedures: n/a Results interpretation: Verified all documentation Verification and Attestation of Medical Student E/M Service A medical student performed and documented this service in my presence. I reviewed and verified all information documented by the medical student and made modifications to such information, when appropriate. I personally performed the physical exam and medical decision making. Carline Loza, Jan 31, 2019,08:59 RADHA WRIGHT MED STUDENT Jan 30, 2019 14:14 CARLINE LOZA DO Jan 31, 2019 08:59
--- NOTE | 2019-01-30 14:17 | Therapy Team Discharge Summary ---
Therapy Discharge Summary Discharge Recommendations Date of Discharge Physical Therapy Patient came to rehab post cerebral hemorrhage. Upon evaluation patient performed bed mobility with mod I, supine <-> sit with mod I, sit <-> stand with CGA, transfers with CGA, car transfer CGA, ambulated 150' with a rolling walker with CGA (including 50' with at least 2 turns of 90 degrees and 10' over an uneven surface), can propel a manual wheelchair 150' with mod I, went up and down 4 steps using 2 handrails with CGA, and could crop picker an object from the floor with CGA. Patient has been performing bed mobility and transfer training, balance and endurance training, functional strengthening, stair training, gait training, and education. Patient has made some progress but has only met his alf goals for bed mobility. Now, patient performs bed mobility with mod I, supine <-> sit mod I, sit <-> stand with CGA, transfers with CGA, car transfer CGA, ambulate 200' with a rolling walker with CGA (including 50' with at least 2 turns of 90 degrees and 10' over an uneven surface), propels a manual wheelchair 150' with independence, and can go up and down 4 steps using 2 handrails with CGA. Patient is discharging from this facility today and will be discharged from PT at this time. Occupational Therapy Decreased Safety Aware, Impaired Funct Balance PT Handle Lathe Operator Goals Mcc Goals PT Mcc Goals Time Frame: Feb 11, 2019 Roll Left to Right (QC): 6 Sit to Lying (QC): 6 Lying-Sitting on Side/Bed(QC): 6 Sit to Stand (QC): 6 Chair/Ekb-xm-Tpzbf Xfer(QC): 6 Car Transfer (QC): 6 Distance: 300' Walk 10 feet (QC): 6 Walk 10ft-Uneven Surface(QC): 6 Walk 50ft with 2 Turns (QC): 6 Walk 150 ft (QC): 6 Gait Assistive Device: FWW # of Steps: 12 (SBA) 1 Step (curb) (QC): 4 4 Steps (QC): 4 12 Steps (QC): 4 Picking up an Object (QC): 4 (SBA) OT Mcc Goals Mcc Goals Time Frame: Feb 11, 2019 Eating (QC): 6 (met-01/29/2019) Oral Hygiene (QC): 6 (met-01/29/2019) Shower/Bathe Self (QC): 5 (met-01/29/2019) Upper Body Dressing (QC): 5 (met-01/29/2019) Lower Body Dressing (QC): 5 (met-01/29/2019) On/Off Footwear (QC): 5 (met-01/29/2019) Toileting Hygiene (QC): 5 (met-01/29/2019) Toilet/Commode Transfer (QC): 5 (met-01/29/2019) Additional Goals: 1-Demonstrate ADL Tasks, 2-Verbalize Understanding, 3-Imp roveStrength/Omar 1=Demonstrate adherence to instructed precautions during ADL tasks. 2=Patient will verbalize/demonstrate understanding of assistive devices/modifications for ADL. 3=Patient will improve strength/tolerance for activity to enable patient to perform ADL's. Speech Mcc Goals Handle Lathe Operator Goals Patient will improve speech and cognitive levels for better communication within his living environment. Patient will maintain adequate nutrition/hydration via safe effective swallow function. TERESE WALSH PT Jan 30, 2019 14:17
--- NOTE | 2019-01-30 14:49 | Therapy Team Discharge Summary ---
Therapy Discharge Summary Discharge Recommendations Date of Discharge 01-30-19 Therapy D/C Recommendations: Home w/ Family Support Occupational Therapy Pt. was seen by occupational therapy to increase overall independence. At this time, pt. has discharged against medical advice. At time of admission, pt. was living with his sister and required assist from her and a caregiver. At this time, pt. is discharging with his son. Pt. has met goals with safety concerns for balance and cognition. Pt. has all needed equipment. Decreased Safety Aware PT Manager Clinical Goals Manager Clinical Goals PT Jail Goals Time Frame: Feb 11, 2019 Roll Left to Right (QC): 6 Sit to Lying (QC): 6 Lying-Sitting on Side/Bed(QC): 6 Sit to Stand (QC): 6 Chair/Cjq-bp-Tgdbs Xfer(QC): 6 Car Transfer (QC): 6 Distance: 300' Walk 10 feet (QC): 6 Walk 10ft-Uneven Surface(QC): 6 Walk 50ft with 2 Turns (QC): 6 Walk 150 ft (QC): 6 Gait Assistive Device: FWW # of Steps: 12 (SBA) 1 Step (curb) (QC): 4 4 Steps (QC): 4 12 Steps (QC): 4 Picking up an Object (QC): 4 (SBA) OT Manager Clinical Goals Manager Clinical Goals Time Frame: Feb 11, 2019 Eating (QC): 6 (met-01/29/2019) Oral Hygiene (QC): 6 (met-01/29/2019) Shower/Bathe Self (QC): 5 (met-01/29/2019) Upper Body Dressing (QC): 5 (met-01/29/2019) Lower Body Dressing (QC): 5 (met-01/29/2019) On/Off Footwear (QC): 5 (met-01/29/2019) Toileting Hygiene (QC): 5 (met-01/29/2019) Toilet/Commode Transfer (QC): 5 (met-01/29/2019) Additional Goals: 1-Demonstrate ADL Tasks, 2-Verbalize Understanding, 3- ImproveStrength/Omar 1=Demonstrate adherence to instructed precautions during ADL tasks. 2=Patient will verbalize/demonstrate understanding of assistive devices/modifications for ADL. 3=Patient will improve strength/tolerance for activity to enable patient to perform ADL's. Speech Jail Goals Jail Goals Patient will improve speech and cognitive levels for better communication within his living environment. Patient will maintain adequate nutrition/hydration via safe effective swallow function. ARMEN KOCH OT Jan 30, 2019 14:49
--- NOTE | 2019-01-31 08:12 | Therapy Team Discharge Summary ---
Therapy Discharge Summary Discharge Recommendations Date of Discharge Jan 30, 2019 at 12:00 Therapy D/C Recommendations: Home w/ Family Support Occupational Therapy Decreased Safety Aware Speech-Language Pathology Patient was admitted to the ARU from home due to CVA. Patient was given the SLUMS and was in the mild area of cognitive deficits. Patient received skilled ST with progress made on all goals. Patient left the hospital AMA on 01/30/19. He is discharged from skilled ST as well. PT Leather Goods Assembler Goals Care Home Goals PT Leather Goods Assembler Goals Time Frame: Feb 11, 2019 Roll Left to Right (QC): 6 Sit to Lying (QC): 6 Lying-Sitting on Side/Bed(QC): 6 Sit to Stand (QC): 6 Chair/Ukb-jr-Zdffb Xfer(QC): 6 Car Transfer (QC): 6 Distance: 300' Walk 10 feet (QC): 6 Walk 10ft-Uneven Surface(QC): 6 Walk 50ft with 2 Turns (QC): 6 Walk 150 ft (QC): 6 Gait Assistive Device: FWW # of Steps: 12 (SBA) 1 Step (curb) (QC): 4 4 Steps (QC): 4 12 Steps (QC): 4 Picking up an Object (QC): 4 (SBA) OT Leather Goods Assembler Goals Leather Goods Assembler Goals Time Frame: Feb 11, 2019 Eating (QC): 6 (met-01/29/2019) Oral Hygiene (QC): 6 (met-01/29/2019) Shower/Bathe Self (QC): 5 (met-01/29/2019) Upper Body Dressing (QC): 5 (met-01/29/2019) Lower Body Dressing (QC): 5 (met-01/29/2019) On/Off Footwear (QC): 5 (met-01/29/2019) Toileting Hygiene (QC): 5 (met-01/29/2019) Toilet/Commode Transfer (QC): 5 (met-01/29/2019) Additional Goals: 1-Demonstrate ADL Tasks, 2-Verbalize Understanding, 3- ImproveStrength/Omar 1=Demonstrate adherence to instructed precautions during ADL tasks. 2=Patient will verbalize/demonstrate understanding of assistive devices/modifications for ADL. 3=Patient will improve strength/tolerance for activity to enable patient to perform ADL's. Speech Care Home Goals Leather Goods Assembler Goals Patient will improve speech and cognitive levels for better communication within his living environment. Not met Patient will maintain adequate nutrition/hydration via safe effective swallow function. Met LULA PARKS Jan 31, 2019 08:12
== END 2019-01-30 12:00 | disposition left against medical advice (07) | DRG 57 ==
PROVIDERS: ADMIT Internal Medicine; ATTEND Internal Medicine
DX: I69.151 Hemiplegia and hemiparesis following nontraumatic intracerebral hemorrhage affecting right dominant side (principal); I69.193 Ataxia following nontraumatic intracerebral hemorrhage; G93.89 Other specified disorders of brain; F22 Delusional disorders; F41.9 Anxiety disorder, unspecified; F32.9 Major depressive disorder, single episode, unspecified; J44.9 Chronic obstructive pulmonary disease, unspecified; I10 Essential (primary) hypertension; K21.9 Gastro-esophageal reflux disease without esophagitis; F10.21 Alcohol dependence, in remission; Z87.891 Personal history of nicotine dependence
CPT/HCPCS: 36415; 80053; 85025

== ENCOUNTER 2021-04-09 09:23 | Emergency (ER) | payer MEDICARE, OTHER ==
[~2021-04-09] VITALS: Ht 172.7 cm; Wt 99.8 kg
[~2021-04-09 09:23] MED LIST changes: +AMLO-251 PO; +IBUP-30 PO; -METO-370 PO; +METO50TA7 PO
--- OUTSIDE RECORDS SUMMARY | 2021-04-09 09:28 | XMS REPORT | Clinical Summary ---
Author Author [facility] Organization [facility] Address Unknown Phone Unavailable Care Team Providers Care Account Manager Relief Name Role Phone Román Patiño MD PCP Rusty Mayorga MARINE PHOTOGRAPHER-LYE TREATER Unavailable Source Comments Some departments are not documenting in the electronic medical record. If you d o not see the information that you expected, contact Release of Information in [facility] The [employer] Information Management department at [phone] for further assistan ce in locating additional records.[facility] Allergies No known active allergies Medications End Date Status Medication Sig Dispensed Refills Start Date Active cetirizine (ZYRTEC) 10 mg Take 10 mg by 0 tablet mouth daily. Active fluticasone propionate Apply 2 0 (FLONASE) 50 sprays into mcg/actuation nasal spray nose as directed daily. Active albuterol-ipratropium Inhale 3 mL 0 07/21/19 1 (DUO-NEB, DUO-VENT) 0.5 by mouth into 9 mg-3 mg(2.5 mg base)/3 mL the lungs nebulizer solution every 1 hour as needed. Active sertraline (ZOLOFT) 50 mg Take 50 mg by 0 tablet mouth daily. Active hydrALAZINE (APRESOLINE) Take 25 mg by 0 25 mg tablet mouth every 6 hours as needed. Active metoprolol XL (TOPROL XL) Take 25 mg by 0 25 mg extended release mouth daily. tablet Active amLODIPine (NORVASC) 10 Take one-half 90 tablet 6 mg tabletIndications: tablet by 9 hypertension mouth daily. Indications: high blood pressure Active cyanocobalamin (VITAMIN Take two 60 tablet 6 B-12) 1,000 mcg tablets by 9 tabletIndications: mouth daily. prevention of vitamin B12 Indications: deficiency Prevention of Vitamin B12 Deficiency Active thiamine HCL(+) (VITAMIN Take one 30 tablet 6 0 B-1) 100 mg tablet by 9 tabletIndications: mouth daily. thiamine deficiency Indications: Deficiency in Thiamine or Vitamin B1 Active Problems Problem Noted Date Convergence insufficiency 11/05/2018 Last Assessment & Plan: Formatting of this note might be differ ent from the original. The patient demonstrates symptomatic di plopia at near from convergence insufficiency. He would see better wit h a 3-4 pd base in Fresnel prism over +2.50 readers, and suggest that be arranged for him locally. 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 This ma y improve and does not seem to bother the patient at distance. We sug gest simply monitoring this locally. 6th nerve palsy, right 11/05/2018 Last Assessment & Plan: Formatting of this note might be differ ent from the original. The patient demonstrates a partial righ t 6th nerve palsy, also likely related to his AVM/hemorrhage. This to o does not seem to be bothersome to the patient and should simply be monito red. Age-related nuclear cataract of both eyes 11/05/2018 Last Assessment & Plan: Formatting of this note might be differ ent from the original. This is not visually significant and sh ould be monitored. Surgical History Surgery Date Site/Laterality Comments CRANIOTOMY Medical History Medical History Date Comments Stroke (HCC) Hypertension COPD (chronic obstructive pulmonary disease) (HCC) Other dysphagia Memory loss Vision decreased Social History Date Tobacco Use Types Packs/Day Years Used Former Smoker Smokeless Tobacco: Never Used Comments Alcohol Use Standard Drinks/Week Not Currently 0 (1 standard drink = 0.6 o z pure alcohol) Sex Assigned at Date Recorded Not on file Last Filed Vital Signs Reading Time Taken Comments Vital Sign 136/88 01/11/2019 1:49 PM CDT Blood Pressure 78 01/11/2019 1:49 PM CDT Pulse - - Temperature - - Respiratory Rate - - Oxygen Saturation - - Inhaled Oxygen Concentration 89.1 kg (196 lb 6.4 oz) 01/11/2019 1:49 PM CDT Weight 172.7 cm (5' 8") 01/11/2019 1:49 PM CDT Height 29.86 01/11/2019 1:49 PM CDT Body Mass Index Plan of Treatment Health Maintenance Due Date Last Done Comments MEDICARE ANNUAL WELLNESS 1955 VISIT DTAP/TDAP VACCINES (1 - 07/13/1971 Tdap) HEPATITIS C SCREENING 07/13/1971 PHYSICAL (COMPREHENSIVE) 07/13/1971 EXAM COLORECTAL CANCER 07/13/2003 SCREENING SHINGLES RECOMBINANT 07/13/2003 VACCINE (1 of 2) ABDOMINAL AORTIC ANEURYSM 2018 SCREENING PNEUMONIA (PPSV23) 2018 VACCINE (1 of 1 - PPSV23) INFLUENZA VACCINE 11/15/2020 Results Not on filefrom Last 3 Months Insurance Type Payer Benefit Subscriber ID Effective Phone Address Plan / Dates Group Medicare MEDICARE MEDICARE [id number] 2018-P [phone] [address] [place] [address] PPO [employer] [id number] 2018-P [phone] [address] [place] [id number] Advance Directives Patient Director Of Collections Explanation Type Date Recorded DPOA Advance 12/13/2018 12:00 AM Directive/DPOA Care Teams Start Date End Date Account Manager Relief Relationship Specialty 11/05/18 Román Patiño MD PCP - General General [address] [place] [address] 01/11/19 Rusty Mayorga, MARINE PHOTOGRAPHER-LYE TREATER Nurse [address] [place] [id number]
--- NOTE | 2021-04-09 09:53 | ED General ---
General Chief Complaint: COVID19 Suspect/Confirmed Stated Complaint: NOT FEELING WELL Source of Information: Patient Exam Limitations: No Limitations History of Present Illness Date Seen by Provider: Apr 09, 2021 Time Seen by Provider: 09:40 Initial Comments Patient is a 65-year-old male who presents to the emergency room today with a chief complaint of generalized malaise and fatigue and weakness. He states that he was exposed to COVID-19 by family members about 10 days ago. He has been at home having terrible diarrhea. He denies any chest pain, cough, shortness of breath. No other URI symptoms. He has been drinking only Dr. Pepper at home and states he cannot really tolerate any food without getting bad diarrhea. Denies any black or bloody stool. No problems with urination. No swelling in his legs or cramping in his calves. He has not really been taking any medications at home. He tells me he has had prior stroke. He takes medication for hypertension. All other review of systems reviewed and negative except as stated. Timing/Duration: 1 Week, Getting Worse Associated Systoms: Weakness Allergies and Home Medications Allergies Coded Allergies: No Known Drug Allergies (Verified , 12/10/18) Patient Home Medication List Home Medication List Reviewed: Yes Amlodipine Besylate (Amlodipine Besylate) 10 Mg Tablet, 5 MG PO DAILY Prescribed by: HAWK LOZA on 01/30/19 1149 Hydralazine HCl (Hydralazine HCl) 25 Mg Tablet, 25 MG PO Q6H Prescribed by: HAWK LOZA on 01/30/19 1149 Ibuprofen (Advil) 200 Mg Tablet, 400 MG PO Q8H PRN for PAIN-MILD, (Reported) Entered as Reported by: CLAUDIA NICK on 01/21/19 1101 Metoprolol Succinate (Metoprolol Succinate) 50 Mg Tab.er.24h, 25 MG PO DAILY Prescribed by: HAWK LOZA on 01/30/19 1149 Review of Systems Review of Systems Constitutional: see HPI EENTM: no symptoms reported Respiratory: no symptoms reported Cardiovascular: no symptoms reported Gastrointestinal: diarrhea Genitourinary: no symptoms reported Musculoskeletal: muscle cramps Skin: no symptoms reported Psychiatric/Neurological: No Symptoms Reported All Other Systems Reviewed Negative Unless Noted: Yes Past Pgidrhq-Fngrvv-Miwcwb Hx Patient Social History Tobacco Use?: No Smoking Status: Never a Smoker Use of E-Cig and/or Vaping Lcarence: Never a User Substance use?: No Alcohol Use?: No Pt feels they are or have been: No Immunizations Up To Date First/Initial COVID19 Vaccinat: n/a Second COVID19 Vaccination Anatoly: n/a Third COVID19 Vaccination Date: n/a COVID19 Vaccine Logistics Planner: n/a Seasonal Allergies Seasonal Allergies: No Past Medical History Surgeries: Yes (BRAIN SURGERY-REMOVAL OF HEMATOMA) Brain Shunt Respiratory: Yes Pneumonia, COPD Currently Using CPAP: No Currently Using BIPAP: No Cardiac: Yes Hypertension Neurological: Yes Stroke Sexually Transmitted Disease: No HIV/AIDS: No Genitourinary: No Gastrointestinal: Yes Gastroesophageal Reflux, Chronic Diarrhea Musculoskeletal: No Endocrine: No (HAD ELEVATED BS WHILE ON STEROIDS IN HOSPITAL) HEENT: Yes Double Vision Loss of Vision: Denies Hearing Impairment: Denies Cancer: No Psychosocial: No Integumentary: No Blood Disorders: No Adverse Reaction/Blood Tranf: No (N/A) Family Medical History Patient reports no known family medical history. Physical Exam Vital Signs Vital Signs - First Documented 04/09/21 09:24 Temp 36.9 Pulse 107 Resp 16 B/P (MAP) 135/96 (109) Pulse Ox 95 O2 Delivery Room Air Capillary Refill : Height, Weight, BMI Height: 5'8.00" Weight: 180lbs. 0.0oz. 81.095916xb; 29.80 BMI Method:Stated General Appearance: No Apparent Distress, WD/WN Eyes: Bilateral Eye Normal Inspection, Bilateral Eye PERRL, Bilateral Eye EOMI HEENT: PERRL/EOMI Neck: Normal Inspection Respiratory: Lungs Clear, Normal Breath Sounds, No Accessory Muscle Use, No Respiratory Distress Cardiovascular: Regular Rate, Rhythm, Normal Peripheral Pulses Gastrointestinal: Normal Bowel Sounds, Non Tender, Soft Extremity: Normal Capillary Refill, Normal Inspection, Normal Range of Motion, Non Tender Neurologic/Psychiatric: Alert, Oriented x3, No Motor/Sensory Deficits, Normal Mood/Affect, hide inspector and sorter II-XII Norm as Tested Skin: Normal Color, Warm/Dry Progress/Results/Core Measures Suspected Sepsis SIRS Temperature: Pulse: Respiratory Rate: Laboratory Tests 04/09/21 09:30: White Blood Count 2.9L Blood Pressure / Mean: Laboratory Tests 04/09/21 09:30: Creatinine 0.91, Platelet Count 231, Total Bilirubin 0.7 Results/Orders Lab Results Laboratory Tests Test 04/09/21 09:30 Range/Units White Blood Count 2.9 L 4.3-11.0 10^3/uL Red Blood Count 6.00 H 4.30-5.52 10^6/uL Hemoglobin 17.6 13.3-17.7 g/dL Hematocrit 51 40-54 % Mean Corpuscular Volume 85 80-99 fL Mean Corpuscular Hemoglobin 29 25-34 pg Mean Corpuscular Hemoglobin Concent 35 32-36 g/dL Red Cell Distribution Width 13.7 10.0-14.5 % Platelet Count 231 130-400 10^3/uL Mean Platelet Volume 9.9 9.0-12.2 fL Immature Granulocyte % (Auto) 0 % Neutrophils (%) (Auto) 67 42-75 % Lymphocytes (%) (Auto) 20 12-44 % Monocytes (%) (Auto) 12 0-12 % Eosinophils (%) (Auto) 0 0-10 % Basophils (%) (Auto) 0 0-10 % Neutrophils # (Auto) 2.0 1.8-7.8 10^3/uL Lymphocytes # (Auto) 0.6 L 1.0-4.0 10^3/uL Monocytes # (Auto) 0.4 0.0-1.0 10^3/uL Eosinophils # (Auto) 0.0 0.0-0.3 10^3/uL Basophils # (Auto) 0.0 0.0-0.1 10^3/uL Immature Granulocyte # (Auto) 0.0 0.0-0.1 10^3/uL Sodium Level 129 L 135-145 MMOL/L Potassium Level 3.8 3.6-5.0 MMOL/L Chloride Level 95 L 98-107 MMOL/L Carbon Dioxide Level 19 L 21-32 MMOL/L Anion Gap 15 H 5-14 MMOL/L Blood Urea Nitrogen 19 H 7-18 MG/DL Creatinine 0.91 0.60-1.30 MG/DL Estimat Glomerular Filtration Rate 83 BUN/Creatinine Ratio 21 Glucose Level 107 H 70-105 MG/DL Calcium Level 8.3 L 8.5-10.1 MG/DL Corrected Calcium 8.5 8.5-10.1 MG/DL Total Bilirubin 0.7 0.1-1.0 MG/DL Aspartate Amino Transf (AST/SGOT) 57 H 5-34 U/L Alanine Aminotransferase (ALT/SGPT) 34 0-55 U/L Alkaline Phosphatase 44 40-136 U/L Total Protein 7.1 6.4-8.2 GM/DL Albumin 3.8 3.2-4.5 GM/DL Influenza Type A (RT-PCR) Not Detected Not Detecte Influenza Type B (RT-PCR) Not Detected Not Detecte SARS-CoV-2 RNA (RT-PCR) Detected H Not Detecte Smear Scan YES My Orders Orders - YANA JOHNSON MD Ed Iv/Invasive Line Start (04/09/21 09:50) Cbc With Automated Diff (04/09/21 09:50) Comprehensive Metabolic Panel (04/09/21 09:50) Covid 19 Inhouse Test (04/09/21 09:50) Influenza A And B By Pcr (04/09/21 09:50) Isolation Central Supply Req (04/09/21 09:50) Ns Iv 1000 Ml (Sodium Chloride 0.9%) (04/09/21 10:00) Ketorolac Injection (Toradol Injection) (04/09/21 10:00) Chest 1 View, Ap/Pa Only (04/09/21 09:59) Medications Given in ED Current Medications Medications Dose Ordered Sig/Renny Route Start Time Stop Time Status Last Admin Dose Admin Ketorolac Tromethamine 15 mg ONCE ONCE IVP 04/09/21 10:00 04/09/21 10:01 DC 04/09/21 10:23 15 MG Vital Signs/I&O 04/09/21 09:24 Temp 36.9 Pulse 107 Resp 16 B/P (MAP) 135/96 (109) Pulse Ox 95 O2 Delivery Room Air Capillary Refill : Progress Note : Time: 11:23 Progress Note Rechecked patient, he is feeling much better after Toradol and 600 cc of fluid so far. He feels much "clearer" and alert. I let him know that he would be able to be discharged home. His chest x-ray is normal. His labs are reassuring. I have encouraged him to drink water instead of Dr. Friend. He can take at home ibuprofen for his aches and pains. As this is day 10 since he was exposed to Covid I feel like he will probably do pretty well. He did dip his sats down a little bit while he was sleeping however he does not have concerning pneumonia on his chest x-ray. I have advised him to follow-up with his primary care doctor. Return precautions have been given. He verbalized understanding, all questions are sought and answered. Diagnostic Imaging Diagonstic Imaging: Xray Plain Films/CT/US/NM/MRI: chest Comments [facility] [place] NAME: NIGEL IQBAL [facility] REC#: [id number] PT STATUS: REG ER : 1955 PHYSICIAN: YANA JOHNSON MD ADMIT DATE: 04/09/21/ER Signed Date of Exam:04/09/21 CHEST 1 VIEW, AP/PA ONLY Indication: Altered mental status, Covid Portable chest 10:37 AM Heart size and pulmonary vascularity are normal. Lungs are clear. There are no effusions or pneumothoraces. IMPRESSION: Negative chest Dictated by: Dictated on workstation # [id number] Dict: 04/09/21 1054 Trans: 04/09/21 1054 TC [id number] Interpreted by: PEÑA IVORY MD Electronically signed by: PEÑA IVORY MD 04/09/21 1054 Departure Impression Primary Impression: COVID-19 Additional Impression: Dehydration Disposition: 01 HOME, SELF-CARE Condition: Stable Departure-Patient Inst. Decision time for Depature: 11:27 Referrals: AGATHA BRIONES MD (PCP/Family) Primary Care Physician Patient Instructions: COVID-19 ED Add. Discharge Instructions: You need to drink lots of water to stay hydrated instead of diet Dr. Friend. Take ehow-[id number] Tylenol or ibuprofen as directed on the bottle. You can do this every 6 hours with food for pain and aches. If you become short of breath, develop a severe cough or have any other emergent concerning symptoms please come back to the ER for reevaluation. Follow-up with your primary care doctor in a week. YANA JOHNSON MD Apr 09, 2021 09:53
[2021-04-09] MEDS ORDERED: KETOROLAC 30 MG/ML VIAL IVP ONE (10:00)
[2021-04-09] MEDS ORDERED: NS IV 1000 ML 1,000 ML IV SCH (10:00)
[2021-04-09 10:03] LABS: BASOPHILS % (AUTO) 0 % (0-10); EOSINOPHILS % (AUTO) 0 % (0-10); HEMATOCRIT 51 % (40-54); HEMOGLOBIN 17.6 g/dL (13.3-17.7); LYMPHOCYTES # (AUTO) 0.6 10^3/uL (1.0-4.0); LYMPHOCYTES % (AUTO) 20 % (12-44); MEAN CORPUSCULAR HEMOGLOBIN 29 pg (25-34); MEAN CORPUSCULAR HGB CONC 35 g/dL (32-36); MEAN CORPUSCULAR VOLUME 85 fL (80-99); MEAN PLATELET VOLUME 9.9 fL (9.0-12.2); MONOCYTES # (AUTO) 0.4 10^3/uL (0.0-1.0); MONOCYTES % (AUTO) 12 % (0-12); NEUTROPHILS % (AUTO) 67 % (42-75); PLATELET COUNT 231 10^3/uL (130-400); WHITE BLOOD COUNT 2.9 10^3/uL (4.3-11.0)
[2021-04-09 10:04] LABS: ALBUMIN 3.8 GM/DL (3.2-4.5); POTASSIUM 3.8 MMOL/L (3.6-5.0); SMEAR SCAN COMMENT YES
[2021-04-09 10:06] LABS: CALCIUM 8.3 MG/DL (8.5-10.1)
[2021-04-09 10:07] LABS: TOTAL PROTEIN 7.1 GM/DL (6.4-8.2)
[2021-04-09 10:09] LABS: BILIRUBIN,TOTAL 0.7 MG/DL (0.1-1.0)
[2021-04-09 10:11] LABS: CREATININE SERUM 0.91 MG/DL (0.60-1.30)
--- NOTE | 2021-04-09 10:56 | Diagnostic Imaging Report ---
Indication: Altered mental status, Covid Portable chest 10:37 AM Heart size and pulmonary vascularity are normal. Lungs are clear. There are no effusions or pneumothoraces. IMPRESSION: Negative chest Dictated by: Dictated on workstation # [id number]
[2021-04-09 12:15] VITALS: BP 103/63
== END 2021-04-09 12:15 | disposition home or self-care (01) ==
LOC: EDUNIT# 09:23 → ER 09:25
DX: U07.1 COVID-19 (principal); E86.0 Dehydration; J44.9 Chronic obstructive pulmonary disease, unspecified; I10 Essential (primary) hypertension; Z86.73 Personal history of transient ischemic attack (TIA), and cerebral infarction without residual deficits
CPT/HCPCS: 36415; 71045; 80053; 85025; 87636